=== PATIENT | male | born 1945 | race Caucasian/White ===

== ENCOUNTER 2016-02-27 22:32 | Inpatient (IN) | payer MEDICARE, BC ==
[~2016-02-27] VITALS: Ht 175.3 cm; Wt 90.7 kg
[~2016-02-27 22:32] MED LIST: ATEN50TA PO; Chlordiazepoxide Hcl PO; Folic Acid PO; MAGN400T26 PO; THIA100T13 PO
[2016-02-27 23:03] LABS: BASOPHILS % (AUTO) 0.6 % (0.0-2.0); DIFF TOTAL % 100 %; EOSINOPHILS # (AUTO) 0.2 /CMM (0.0-0.7); EOSINOPHILS % (AUTO) 2.3 % (0.0-6.0); HEMATOCRIT 47 % (39-51); LYMPHOCYTES # (AUTO) 1.8 /CMM (0.8-4.8); LYMPHOCYTES % (AUTO) 24.6 % (20.0-44.0); MEAN CORPUSCULAR HEMOGLOBIN 32 PG (26.0-33.0); MEAN CORPUSCULAR HGB CONC 34 g/dl (31.0-36.0); MEAN CORPUSCULAR VOLUME 95 fL (80-96); MONOCYTES # (AUTO) 0.6 /CMM (0.1-1.30); MONOCYTES % (AUTO) 7.5 % (2.0-12.0); NEUTROPHILS # (AUTO) 4.8 /CMM (1.8-8.9); PLATELET COUNT (AUTO) 204 /CMM (150-450); RED BLOOD CELL COUNT(AUTO) 4.96 MIL/uL (4.5-6.0); WHITE BLOOD COUNT (AUTO) 7.4 K/uL (4.3-11.0)
[2016-02-27 23:09] LABS: CALCIUM, SERUM 8.4 mg/dL (8.5-10.1); CREATININE 0.8 mg/dL (0.6-1.3); POTASSIUM 3.7 mmol/L (3.5-5.1)
[2016-02-27 23:15] LABS: ALBUMIN 4.1 g/dL (3.4-5.0); BILIRUBIN,DIRECT 0.2 mg/dL (0.0-0.2); BILIRUBIN,TOTAL 0.8 mg/dL (0.2-1.0); INDIRECT BILIRUBIN 0.6 mg/dL (0.0-1.1); SALICYLATE 4.2 mg/dL (2.8-20.0); TOTAL PROTEIN, SERUM 7.2 g/dL (6.4-8.2)
[2016-02-28 00:15] VITALS: BP 139/78
[2016-02-28] MEDS ORDERED: MAG HYDROX/AL HYDROX/SIMETH 30 ML UDC PO PRN (00:30)
[2016-02-28] MEDS ORDERED: ACETAMINOPHEN 325 MG TABLET PO PRN (00:30)
[2016-02-28] MEDS ORDERED: clonazePAM 0.5 MG TABLET PO PRN (00:30)
[2016-02-28] MEDS ORDERED: TEMAZEPAM 7.5 MG CAPSULE ONE (02:04)
[2016-02-28] MEDS ORDERED: ACETAMINOPHEN 325 MG TABLET ONE (02:05)
[2016-02-28] MEDS: TEMAZEPAM 7.5 MG CAPSULE PO PRN ×2 (02:10→23:15)
[2016-02-28 07:29] LABS: CHOLESTEROL 208 mg/dL (<200); HDL CHOLESTEROL 87 mg/dL (40-60); LDL 99 mg/dL (0-99); TRIGLYCERIDES 104 mg/dL (30-150)
[2016-02-28 08:00] VITALS: BP 158/83
[2016-02-28] MEDS: THIAMINE HCL 100 MG TABLET PO SCH (09:18)
[2016-02-28] MEDS: MAGNESIUM OXIDE 400 MG TABLET PO SCH (09:18)
[2016-02-28] MEDS: FOLIC ACID 1 MG TABLET PO SCH (09:19)
[2016-02-28] MEDS: ATENOLOL 50 MG TABLET PO SCH (09:19)
[2016-02-28] MEDS: MAGNESIUM HYDROXIDE 30 ML UDC PO PRN (09:22)
[2016-02-28 16:00] VITALS: BP 118/64
[2016-02-28 20:29] VITALS: BP 134/84
[2016-02-29 08:00] VITALS: BP 139/87
[2016-02-29 08:16] LABS: BASOPHILS % (AUTO) 0.3 % (0.0-2.0); DIFF TOTAL % 100 %; EOSINOPHILS # (AUTO) 0.2 /CMM (0.0-0.7); HEMATOCRIT 46 % (39-51); HEMOGLOBIN 15.6 g/dL (13.5-17.5); LYMPHOCYTES # (AUTO) 1.5 /CMM (0.8-4.8); LYMPHOCYTES % (AUTO) 24.1 % (20.0-44.0); MEAN CORPUSCULAR HEMOGLOBIN 32 PG (26.0-33.0); MEAN CORPUSCULAR HGB CONC 34 g/dl (31.0-36.0); MEAN CORPUSCULAR VOLUME 94 fL (80-96); MONOCYTES # (AUTO) 0.4 /CMM (0.1-1.30); MONOCYTES % (AUTO) 6.5 % (2.0-12.0); NEUTROPHILS # (AUTO) 4.1 /CMM (1.8-8.9); NEUTROPHILS % (AUTO) 66.1 % (43.0-81.0); PLATELET COUNT (AUTO) 161 /CMM (150-450); RED BLOOD CELL COUNT(AUTO) 4.83 MIL/uL (4.5-6.0); WHITE BLOOD COUNT (AUTO) 6.2 K/uL (4.3-11.0)
[2016-02-29] MEDS: MAGNESIUM OXIDE 400 MG TABLET PO SCH (08:23)
[2016-02-29] MEDS: FOLIC ACID 1 MG TABLET PO SCH (08:23)
[2016-02-29] MEDS: THIAMINE HCL 100 MG TABLET PO SCH (08:23)
[2016-02-29] MEDS: ATENOLOL 50 MG TABLET PO SCH (08:23)
[2016-02-29 08:41] LABS: ALBUMIN 3.9 g/dL (3.4-5.0); BILIRUBIN,TOTAL 0.9 mg/dL (0.2-1.0); CALCIUM, SERUM 8.7 mg/dL (8.5-10.1); CREATININE 0.7 mg/dL (0.6-1.3); POTASSIUM 3.4 mmol/L (3.5-5.1); TOTAL PROTEIN, SERUM 6.9 g/dL (6.4-8.2)
[2016-02-29] MEDS: ESCITALOPRAM OXALATE (10 MG) 10 MG TABLET PO SCH (13:57)
[2016-02-29 16:00] VITALS: BP 142/87
[2016-02-29 20:00] VITALS: BP 140/76
[2016-03-01 08:00] VITALS: BP 112/74
[2016-03-01] MEDS: ESCITALOPRAM OXALATE (10 MG) 10 MG TABLET PO SCH (08:32)
[2016-03-01] MEDS: ATENOLOL 50 MG TABLET PO SCH (08:32)
[2016-03-01] MEDS: THIAMINE HCL 100 MG TABLET PO SCH (08:32)
[2016-03-01] MEDS: FOLIC ACID 1 MG TABLET PO SCH (08:32)
[2016-03-01] MEDS: MAGNESIUM OXIDE 400 MG TABLET PO SCH (08:33)
[2016-03-01] MEDS: MAGNESIUM HYDROXIDE 30 ML UDC PO PRN (09:17)
[2016-03-01] MEDS ORDERED: POTASSIUM CHLORIDE 20 MEQ TAB.PRT.SR PO ONE (11:00)
[2016-03-01 16:08] VITALS: BP 111/68
[2016-03-01 19:54] VITALS: BP 112/74
[2016-03-01] MEDS: TEMAZEPAM 7.5 MG CAPSULE PO PRN (21:18)
[2016-03-02 08:00] VITALS: BP 114/77
[2016-03-02] MEDS: FOLIC ACID 1 MG TABLET PO SCH (08:15)
[2016-03-02] MEDS: THIAMINE HCL 100 MG TABLET PO SCH (08:16)
[2016-03-02] MEDS: MAGNESIUM OXIDE 400 MG TABLET PO SCH (08:17)
[2016-03-02 08:18] VITALS: BP 114/77
[2016-03-02] MEDS: ATENOLOL 50 MG TABLET PO SCH (08:18)
[2016-03-02] MEDS ORDERED: ESCITALOPRAM OXALATE (10 MG) 10 MG TABLET PO SCH (09:00)
== END 2016-03-02 12:30 | disposition home health service (06) | DRG 881 ==
LOC: ER 22:33 → GPS 02-28
PROVIDERS: ADMIT Psychiatry & Neurology Psychiatry; ATTEND Family Medicine
DX: F32.9 Major depressive disorder, single episode, unspecified (principal); T51.92XA Toxic effect of unspecified alcohol, intentional self-harm, initial encounter; F10.229 Alcohol dependence with intoxication, unspecified; F17.210 Nicotine dependence, cigarettes, uncomplicated; I10 Essential (primary) hypertension; E87.6 Hypokalemia; E78.5 Hyperlipidemia, unspecified; E66.9 Obesity, unspecified; Z68.29 Body mass index [BMI] 29.0-29.9, adult; Y90.6 Blood alcohol level of 120-199 mg/100 ml; Y92.009 Unspecified place in unspecified non-institutional (private) residence as the place of occurrence of the external cause
CPT/HCPCS: 36415; 80048-TC; 80053-TC; 80061-TC; 80076-TC; 85025-TC; 87081-TC; A4606; G6038-TC; G6039-TC; G6040-TC; Z7610

== ENCOUNTER 2016-06-03 21:37 | Emergency (ER) | payer MEDICARE, BC ==
[~2016-06-03] VITALS: Ht 175.3 cm; Wt 86.2 kg
--- NOTE | 2016-06-03 22:00 | NUR ---
PT BIB RA C/O ETOH INTOX. AMBULATORY WITH STEADY GAIT. A/OX4. SMELLS OF ETOH. SPEECH CLEAR. PT APPEARS WITHDRAWN AND DEPRESSED, DOES NOT MAKE EYE CONTACT. MIRIAN SI/HI. LIVES ALONE WITH HIS DOG. PT STATES "I KNOW THIS SOUNDS CLICHE BUT I JUST WANT TO SLEEP". DENIES PHYSICAL COMPLAINTS "OTHER THAN BEING DRUNK".
--- NOTE | 2016-06-03 22:11 | NUR ---
PT AMBULATED WITH STEADY GAIT. A/OX4. PT WENT OUTSIDE TO SMOKE.
[2016-06-03] MEDS ORDERED: LORAZEPAM INJ 2 MG/ML VIAL ONE (22:48)
[2016-06-03] MEDS ORDERED: IV SET PRIMARY PUMP SET 1 EA INFUS.SET MC ONE (22:48)
[2016-06-03] MEDS ORDERED: IV NS 0.9% 1,000 ML ONE (22:48)
[2016-06-03] MEDS: IV NS 0.9% 1,000 ML BAG IV ONE (23:06)
[2016-06-03] MEDS: LORAZEPAM INJ 2 MG/ML VIAL IV ONE (23:06)
--- NOTE | 2016-06-03 23:41 | NUR ---
RESTING QUIETLY, NAD NOTED. ALL NEEDS ATTENDED TO. ENDORSED TO PAULO RN FOR CONTINUITY OF CARE.
--- NOTE | 2016-06-04 02:57 | NUR ---
pt ambulatory w/ steady gait, resp even & unlabored, denies any pain, VSS w/ no acute distress noted. IV removed. Catheter intact and site benign. Pressure and 4x4 applied to site. No bleeding noted.Patient discharged to home in stable condition. Written and verbal after care instructions given. Patient verbalizes understanding of instruction.
[2016-06-04 02:59] VITALS: BP 131/94
== END 2016-06-04 02:59 | disposition home or self-care (01) ==
LOC: ER 21:39
DX: F10.20 Alcohol dependence, uncomplicated (principal); I10 Essential (primary) hypertension
CPT/HCPCS: 96361; 96374; 99284; A4606; J2060; J7030; Z7610

== ENCOUNTER 2016-06-17 16:28 | Emergency (ER) | payer MEDICARE, BC ==
[~2016-06-17] VITALS: Ht 175.3 cm; Wt 83.9 kg
--- NOTE | 2016-06-17 16:30 | NUR ---
pt bibra from home to er bed 12. here for etoh. pt states drank a 5th of vodka since yesterday. denies si/hi. placed on monitor.nad noted. awaiting md hobbs.
--- NOTE | 2016-06-17 17:27 | NUR ---
keaton rail car mechanic at bedside for eval.
[2016-06-17] MEDS ORDERED: IV NS 0.9% 1,000 ML ONE (18:14)
[2016-06-17] MEDS ORDERED: IV SET PRIMARY 1 EA INFUS.SET MC ONE (18:14)
[2016-06-17 18:26] LABS: BASOPHILS # (AUTO) 0.1 /CMM (0.0-0.2); BASOPHILS % (AUTO) 0.7 % (0.0-2.0); EOSINOPHILS # (AUTO) 0.1 /CMM (0.0-0.7); EOSINOPHILS % (AUTO) 1.2 % (0.0-6.0); HEMATOCRIT 47 % (39-51); HEMOGLOBIN 15.9 g/dL (13.5-17.5); LYMPHOCYTES # (AUTO) 1.4 /CMM (0.8-4.8); LYMPHOCYTES % (AUTO) 18.6 % (20.0-44.0); MEAN CORPUSCULAR HEMOGLOBIN 31 PG (26.0-33.0); MEAN CORPUSCULAR HGB CONC 34 g/dl (31.0-36.0); MEAN CORPUSCULAR VOLUME 93 fL (80-96); MONOCYTES # (AUTO) 0.4 /CMM (0.1-1.30); MONOCYTES % (AUTO) 4.8 % (2.0-12.0); NEUTROPHILS # (AUTO) 5.7 /CMM (1.8-8.9); NEUTROPHILS % (AUTO) 74.7 % (43.0-81.0); PLATELET COUNT (AUTO) 181 /CMM (150-450); RDW COEFFICIENT OF VARIATION 13.4 (11.5-15.0); RED BLOOD CELL COUNT(AUTO) 5.07 MIL/uL (4.5-6.0); WHITE BLOOD COUNT (AUTO) 7.7 K/uL (4.3-11.0)
[2016-06-17] MEDS ORDERED: IV NS 0.9% 1,000 ML BAG IV ONE (18:30)
--- NOTE | 2016-06-17 18:45 | NUR ---
still unable to provide urine sample at this time. provided w/ urinal.
[2016-06-17 18:46] LABS: ALBUMIN 3.7 g/dL (3.4-5.0); BILIRUBIN,DIRECT 0.7 mg/dL (0.0-0.2); BILIRUBIN,TOTAL 1.7 mg/dL (0.2-1.0); CALCIUM, SERUM 8.3 mg/dL (8.5-10.1); CREATININE 0.9 mg/dL (0.6-1.3); POTASSIUM 3.5 mmol/L (3.5-5.1); TOTAL PROTEIN, SERUM 6.4 g/dL (6.4-8.2)
--- NOTE | 2016-06-17 18:55 | NUR ---
pt blood sugar is low. provided w/ snack.
--- NOTE | 2016-06-17 19:39 | NUR ---
I CALLED PATIENT'S SON TESSA NOTIFYING HIM THAT PATIENT IS READY TO BE DISCHARGED, HE IS OUT OF TOWN AND IS UNABLE TO PICK HIM UP HOWEVER, HE WILL CALL AN UBER TO PROVIDE THE PATIENT A RIDE BACK HOME.
[2016-06-17 19:52] VITALS: BP 138/84
--- NOTE | 2016-06-17 19:52 | NUR ---
Patient discharged to home in stable condition. Written and verbal after care instructions given. Patient verbalizes understanding of instruction.IV removed. Catheter intact and site benign. Pressure and 4x4 applied to site. No bleeding noted.
[2016-06-18] MEDS ORDERED: FOLI1TAB16 PO (11:33)
[2016-06-18] MEDS ORDERED: MAGN400T26 PO (11:33)
[2016-06-18] MEDS ORDERED: ESCI10TA PO (11:33)
[2016-06-18] MEDS ORDERED: THIA100T74 PO (11:33)
== END 2016-06-17 19:55 | disposition home or self-care (01) ==
LOC: ER 16:30
DX: F10.129 Alcohol abuse with intoxication, unspecified (principal); I10 Essential (primary) hypertension; F32.9 Major depressive disorder, single episode, unspecified
CPT/HCPCS: 36415; 80048; 80076; 85025; 93005; 99285; A4606; J7030; 81000-TC; Z7610

== ENCOUNTER 2016-06-18 10:35 | Inpatient (IN) | payer MEDICARE, BC ==
[~2016-06-18] VITALS: Ht 175.3 cm; Wt 87.5 kg
--- NOTE | 2016-06-18 10:40 | NUR ---
PT CAME IN FOR N/V,A BD PAIN AND DARK STOOL SINCE LAST NIGHT. REPORTS ALCOHOL WITHDRAWAL. PT AAOX3. SEEN BY MD. RENE. SAFETY AND COMFORT MEASURES PROVIDED. WILL MONITOR.
[2016-06-18 11:25] LABS: BASOPHILS # (AUTO) 0.2 /CMM (0.0-0.2); BASOPHILS % (AUTO) 1.5 % (0.0-2.0); EOSINOPHILS # (AUTO) 0.1 /CMM (0.0-0.7); EOSINOPHILS % (AUTO) 0.9 % (0.0-6.0); HEMATOCRIT 44 % (39-51); HEMOGLOBIN 14.9 g/dL (13.5-17.5); LYMPHOCYTES # (AUTO) 0.8 /CMM (0.8-4.8); LYMPHOCYTES % (AUTO) 7.7 % (20.0-44.0); MEAN CORPUSCULAR HEMOGLOBIN 31 PG (26.0-33.0); MEAN CORPUSCULAR HGB CONC 34 g/dl (31.0-36.0); MEAN CORPUSCULAR VOLUME 92 fL (80-96); MONOCYTES # (AUTO) 0.3 /CMM (0.1-1.30); MONOCYTES % (AUTO) 3.3 % (2.0-12.0); NEUTROPHILS # (AUTO) 8.8 /CMM (1.8-8.9); NEUTROPHILS % (AUTO) 86.6 % (43.0-81.0); PLATELET COUNT (AUTO) 162 /CMM (150-450); RDW COEFFICIENT OF VARIATION 13.3 (11.5-15.0); RED BLOOD CELL COUNT(AUTO) 4.81 MIL/uL (4.5-6.0); WHITE BLOOD COUNT (AUTO) 10.2 K/uL (4.3-11.0)
[2016-06-18] MEDS ORDERED: PANTOPRAZOLE 40 MG VIAL ONE (11:27)
[2016-06-18] MEDS ORDERED: IV NS 0.9% 1,000 ML ONE (11:27)
[2016-06-18] MEDS ORDERED: IV SET PRIMARY PUMP SET 1 EA INFUS.SET MC ONE ×2 (11:27→14:17)
[2016-06-18] MEDS ORDERED: ONDANSETRON HCL/PF 4 MG/2 ML VIAL ONE (11:27)
[2016-06-18] MEDS ORDERED: IV NS 0.9% 1,000 ML BAG IV ONE (11:30)
[2016-06-18] MEDS ORDERED: PANTOPRAZOLE 40 MG VIAL IV ONE (11:30)
[2016-06-18] MEDS ORDERED: ONDANSETRON HCL/PF 4 MG/2 ML VIAL IVP ONE (11:30)
[2016-06-18] MEDS ORDERED: MAGN400T26 PO (11:33)
[2016-06-18] MEDS ORDERED: THIA100T74 PO (11:33)
[2016-06-18] MEDS ORDERED: FOLI1TAB16 PO (11:33)
[2016-06-18] MEDS ORDERED: ESCI10TA PO (11:33)
--- NOTE | 2016-06-18 11:35 | NUR ---
[facility] PAGED DR. BESSIE MARLEY MANAGER CUSTOMS
[2016-06-18 11:38] LABS: CALCIUM, SERUM 9.1 mg/dL (8.5-10.1); CREATININE 0.9 mg/dL (0.6-1.3); POTASSIUM 3.5 mmol/L (3.5-5.1)
[2016-06-18 11:40] LABS: INR 0.98 (0.87-1.13); PROTHROMBIN TIME 10.2 SECS (9.5-12.7)
--- NOTE | 2016-06-18 11:40 | NUR ---
IV ACCESS STARTED. PT MEDICATED ORDERED.
[2016-06-18 11:43] LABS: ALBUMIN 3.7 g/dL (3.4-5.0); BILIRUBIN,DIRECT 0.7 mg/dL (0.0-0.2); BILIRUBIN,TOTAL 2.2 mg/dL (0.2-1.0); TOTAL PROTEIN, SERUM 6.2 g/dL (6.4-8.2)
--- NOTE | 2016-06-18 11:44 | NUR ---
CALLED NURSING SUP. FOR TELE BED
[2016-06-18 11:45] LABS: TROPONIN I 0.071 ng/mL (0.00-0.056)
[2016-06-18 12:00] VITALS: BP 131/55
--- NOTE | 2016-06-18 12:38 | NUR ---
REPORT GIVEN TO KAI MCCLELLAN FOR TELE ROOM 313-2
[2016-06-18] MEDS ORDERED: ZOLPIDEM TARTRATE 5 MG TABLET PO PRN (13:00)
[2016-06-18] MEDS ORDERED: ACETAMINOPHEN 325 MG TABLET PO PRN (13:00)
[2016-06-18] MEDS ORDERED: LORAZEPAM INJ 2 MG/ML VIAL IV PRN (13:00)
[2016-06-18] MEDS ORDERED: ONDANSETRON HCL/PF 4 MG/2 ML VIAL IVP PRN (13:00)
[2016-06-18] MEDS ORDERED: Thiamine 100 MG in IV D5W 50 ML IV STA (13:11)
--- NOTE | 2016-06-18 13:30 | NUR ---
MS RN NOTES PATIENT IN BED RESTING NO SOB OR ACUTE DISTRESS NOTED. PATIENT RECEIVED WITH KIM FROM ER. ORIENTED TO ROOM AND FLOOR. BED IN LOW LOCKED POSITION, CALL LIGHT WITHIN REACH. WILL CONTINUE TO MONITOR CLOSELY.
[2016-06-18] MEDS ORDERED: SECONDARY IV SET 1 EA INFUS.SET MC ONE ×2 (14:17→21:54)
[2016-06-18] MEDS: IV NS 0.9% 1,000 ML IV PRN (14:28)
[2016-06-18 16:00] VITALS: BP 149/84
[2016-06-18] MEDS: ESCITALOPRAM OXALATE (10 MG) 10 MG TABLET PO SCH (18:09)
--- NOTE | 2016-06-18 19:20 | NUR ---
MS RN OPENING NOTES: RECEIVED PATIENT LAYING IN BED. PT ON ROOM AIR. PT COMPLAINED OF NAUSEA BUT REPORTS TO BE DRY HEAVING. NO VOMIT PRESENT. CALL LIGHT WITHIN PT'S REACH. BED KEPT IN LOCKED, LOWEST POSITION, AND SIDE RAILS X2 UP. KEPT CLEAN, DRY, AND COMFORTABLE. NO SIGNS OR SYMPTOMS OF DISTRESS NOTED. PT AMBULATORY WITH SLIGHT WEAKNESS. IV ON L FOREARM #18G AND IS PATENT AND INTACT. WILL CONTINUE TO MONITOR PT.
--- NOTE | 2016-06-18 19:54 | NUR ---
MS RN NOTES PATIENT IN BED RESTING NO SOB OR ACUTE DISTRESS NOTED. ALL DUE MEDICATIONS GIVEN. ALL NEEDS MET. ENDORSED TO PM SHIFT.
[2016-06-18 20:00] VITALS: BP 154/82
[2016-06-18 20:32] VITALS: BP 154/82
[2016-06-18] MEDS: Magnesium 1GM/D5W 100ML PREMIX 100 ML IV SCH ×2 (22:03→23:34)
[2016-06-18] MEDS: CARVEDILOL 12.5 MG TABLET PO SCH (22:04)
--- NOTE | 2016-06-18 22:12 | NUR ---
MS RN NOTES: PATIENT COMPLAINED OF NAUSEA. PT RECEIVED ZOFRAN 4MG IVP. WILL CONTINUE TO MONITOR PT.
[2016-06-19] MEDS: IV NS 0.9% 1,000 ML IV PRN (05:44)
[2016-06-19 06:50] LABS: BASOPHILS % (AUTO) 0.3 % (0.0-2.0); EOSINOPHILS # (AUTO) 0.1 /CMM (0.0-0.7); EOSINOPHILS % (AUTO) 2.1 % (0.0-6.0); HEMATOCRIT 41 % (39-51); HEMOGLOBIN 13.6 g/dL (13.5-17.5); LYMPHOCYTES # (AUTO) 1.3 /CMM (0.8-4.8); MEAN CORPUSCULAR HEMOGLOBIN 32 PG (26.0-33.0); MEAN CORPUSCULAR HGB CONC 34 g/dl (31.0-36.0); MEAN CORPUSCULAR VOLUME 95 fL (80-96); MONOCYTES # (AUTO) 0.2 /CMM (0.1-1.30); MONOCYTES % (AUTO) 3.5 % (2.0-12.0); NEUTROPHILS # (AUTO) 5.2 /CMM (1.8-8.9); NEUTROPHILS % (AUTO) 75.1 % (43.0-81.0); PLATELET COUNT (AUTO) 117 /CMM (150-450); RDW COEFFICIENT OF VARIATION 14.2 (11.5-15.0); WHITE BLOOD COUNT (AUTO) 6.9 K/uL (4.3-11.0)
--- NOTE | 2016-06-19 07:02 | NUR ---
MS RN CLOSING NOTES: PT LAYING IN BED ASLEEP. NO SIGNS OR SYMPTOMS OF DISTRESS OR SOB NOTED. CALL LIGHT WITHIN PT'S REACH AND BED KEPT IN LOCKED, LOWEST POSITION, AND SIDE RAILS X2 UP. PT KEPT CLEAN, DRY, AND COMFORTABLE. PT IS AMBULATORY WITH SLIGHT WEAKNESS. PT'S IV IS ON L FOREARM #18G AND IS PATENT AND INTACT. WILL ENDORSE TO AM NURSE FOR CONTINUITY OF CARE
[2016-06-19 07:19] LABS: ALBUMIN 3.2 g/dL (3.4-5.0); BILIRUBIN,TOTAL 1.5 mg/dL (0.2-1.0); MAGNESIUM 1.7 mg/dL (1.8-2.4); PHOSPHORUS 2.4 mg/dL (2.5-4.9); POTASSIUM 3.2 mmol/L (3.5-5.1); TOTAL PROTEIN, SERUM 5.4 g/dL (6.4-8.2)
[2016-06-19 07:26] LABS: THYROID STIMULATING HORMONE 0.769 uIU/mL (0.358-3.74)
[2016-06-19 08:00] VITALS: BP 125/77
[2016-06-19] MEDS ORDERED: SECONDARY IV SET 1 EA INFUS.SET MC ONE (08:58)
[2016-06-19] MEDS ORDERED: ATENOLOL 50 MG TABLET PO SCH (09:00)
[2016-06-19] MEDS: POTASSIUM CHLORIDE 20 MEQ TAB.PRT.SR PO SCH ×3 (09:07→12:06)
[2016-06-19] MEDS: PANTOPRAZOLE 40 MG TABLET.DR PO SCH (09:07)
[2016-06-19] MEDS: Magnesium 1GM/D5W 100ML PREMIX 100 ML IV SCH ×2 (09:08→09:31)
[2016-06-19] MEDS: ESCITALOPRAM OXALATE (10 MG) 10 MG TABLET PO SCH (09:18)
[2016-06-19] MEDS: MAGNESIUM OXIDE 400 MG TABLET PO SCH (09:19)
[2016-06-19] MEDS: CARVEDILOL 12.5 MG TABLET PO SCH ×2 (09:20→23:40)
[2016-06-19] MEDS: THIAMINE HCL 100 MG TABLET PO SCH (09:20)
[2016-06-19] MEDS: FOLIC ACID 1 MG TABLET PO SCH (09:31)
--- NOTE | 2016-06-19 10:25 | NUR ---
WOUND CARE CONSULT: PT PRESENTS INDEPENDENT WITH BED MOBILITY AND STATES IS CONTINENT. PT STATES THAT HE GETS UP TO BATHROOM WITH ASSISTANCE AND DENIES NEED FOR SKIN ASSESSMENT. WILL SEE PRN.
[2016-06-19] MEDS ORDERED: IV NS 0.9% 1,000 ML ONE (15:17)
[2016-06-19 16:00] VITALS: BP 132/68
[2016-06-19] MEDS ORDERED: K PHOS NEUTRAL 250 MG TABLET PO ONE (16:00)
--- NOTE | 2016-06-19 19:10 | NUR ---
MS RN NOTES RECEIVED PT IN BED, RESTING COMFORTABLY AT THIS TIME, AROUSES EASILY. A/O X 3, VERBALLY RESPONSIVE , ABLE TO MAKE NEEDS KNOWN. STABLE AT THIS TIME, NO ACUTE DISTRESS, NO SOB NOTED. RESPIRATION IS EVEN ANDS UNLABORED. IV SITE ON LFA INTACT AND PATENT, NO S/S OF INFILTRATION NOTED. DENIES ANY PAIN OR DISCOMFORT AT THIS TIME. ALL NEEDS ATTENDED AND MET. KEPT COMFORTABLE. SAFETY PRECAUTIONS OBSERVED. CALL LIGHT WITHIN REACH. WILL CONT TO MONITOR.
[2016-06-19 20:26] VITALS: BP 120/66
[2016-06-19 22:00] VITALS: BP 120/66
--- NOTE | 2016-06-19 22:15 | NUR ---
PT REQUESTED TO GO DOWNSTAIRS, OUTSIDE TO INHALE SOME FRESH AIR, DOLORES , CHARGE NURSE MADE AWARE . PT ACCOMPANIED BY JOON ANDRADE .
--- NOTE | 2016-06-19 22:25 | NUR ---
PT CAME BACK FROM OUTSIDE WITH JOON ANDRADE. PT IN STABLE CONDITION, NO DISTRESS NO SOB NOTED. WILL CONT TO MONITOR. CALL LIGHT WITHIN REACH .
[2016-06-20 06:17] LABS: BASOPHILS % (AUTO) 0.1 % (0.0-2.0); EOSINOPHILS # (AUTO) 0.1 /CMM (0.0-0.7); HEMATOCRIT 42 % (39-51); LYMPHOCYTES # (AUTO) 1.2 /CMM (0.8-4.8); LYMPHOCYTES % (AUTO) 23.4 % (20.0-44.0); MEAN CORPUSCULAR HEMOGLOBIN 32 PG (26.0-33.0); MEAN CORPUSCULAR HGB CONC 34 g/dl (31.0-36.0); MEAN CORPUSCULAR VOLUME 94 fL (80-96); MONOCYTES # (AUTO) 0.2 /CMM (0.1-1.30); MONOCYTES % (AUTO) 3.3 % (2.0-12.0); NEUTROPHILS # (AUTO) 3.8 /CMM (1.8-8.9); NEUTROPHILS % (AUTO) 71.2 % (43.0-81.0); PLATELET COUNT (AUTO) 104 /CMM (150-450); RDW COEFFICIENT OF VARIATION 14.1 (11.5-15.0); RED BLOOD CELL COUNT(AUTO) 4.41 MIL/uL (4.5-6.0); WHITE BLOOD COUNT (AUTO) 5.3 K/uL (4.3-11.0)
[2016-06-20 06:39] LABS: CALCIUM, SERUM 8.5 mg/dL (8.5-10.1); CREATININE 0.8 mg/dL (0.6-1.3); MAGNESIUM 1.5 mg/dL (1.8-2.4); PHOSPHORUS 2.1 mg/dL (2.5-4.9)
--- NOTE | 2016-06-20 06:45 | NUR ---
MS RN NOTES PT IN BED, RESTING COMFORTABLY AT THIS TIME, A/O X 3, VERBALLY RESPONSIVE , ABLE TO MAKE NEEDS KNOWN. STABLE AT THIS TIME, NO ACUTE DISTRESS, NO SOB NOTED. RESPIRATION IS EVEN AND UNLABORED. IV SITE ON LFA INTACT AND PATENT, NO S/S OF INFILTRATION NOTED. DENIES ANY PAIN OR DISCOMFORT AT THIS TIME. ALL NEEDS ATTENDED AND MET. KEPT COMFORTABLE. SAFETY PRECAUTIONS OBSERVED. CALL LIGHT WITHIN REACH. WILL ENDORSE TO NEXT SHIFT FOR GABE.
[2016-06-20 06:55] LABS: POTASSIUM 2.7 mmol/L (3.5-5.1)
--- NOTE | 2016-06-20 07:10 | NUR ---
MS RN OPENING NOTES RECEIVED PT. FROM NIGHTSHIFT NURSE IN STABLE CONDITION. A/0 X3. PT. AWAKE AND LYING IN BED. BED IN LOW LOCKED POSITION, SIDE RAILS UP X2, CALL LIGHT WITHIN REACH. NO SOB OR SIGNS OF DISTRESS NOTED. BREATHING EVEN AND UNLABORED. IV ON LEFT FOREARM, PATENT AND INTACT. NO REDNESS OR INFILTRATION NOTED. NO EXPRESSED SIGNS OF PAIN. WILL CONTINUE TO MONITOR.
--- NOTE | 2016-06-20 07:32 | NUR ---
PLACED A CALL TO [facility] TO RELAY POTASSIUM LEVEL : 2.7, SPOKE WITH BENNIE, PER BENNIE TO CALL BESSIE MARLEY, PT IS ASYMPTOMATIC AT THIS TIME, STABLE, DENIES ANY CHEST PAIN. ENDORSED TO DAYSMAFT VY CHAIREZ ACCORDINGLY.
[2016-06-20 08:00] VITALS: BP 121/75
[2016-06-20] MEDS: THIAMINE HCL 100 MG TABLET PO SCH (08:35)
[2016-06-20] MEDS: PANTOPRAZOLE 40 MG TABLET.DR PO SCH (08:36)
[2016-06-20] MEDS: MAGNESIUM OXIDE 400 MG TABLET PO SCH (08:36)
[2016-06-20] MEDS: FOLIC ACID 1 MG TABLET PO SCH (08:36)
[2016-06-20] MEDS: CARVEDILOL 12.5 MG TABLET PO SCH ×2 (08:36→21:17)
[2016-06-20] MEDS: Magnesium 1GM/D5W 100ML PREMIX 100 ML IV SCH ×4 (10:16→15:31)
[2016-06-20] MEDS: POTASSIUM CHLORIDE 20 MEQ TAB.PRT.SR PO SCH ×5 (10:16→15:31)
[2016-06-20] MEDS ORDERED: K PHOS NEUTRAL 250 MG TABLET PO ONE (13:00)
[2016-06-20 16:00] VITALS: BP 115/76
[2016-06-20] MEDS: ESCITALOPRAM OXALATE (10 MG) 10 MG TABLET PO SCH (18:37)
[2016-06-20 19:00] VITALS: BP 123/76
--- NOTE | 2016-06-20 19:05 | NUR ---
MS RN CLOSING NOTES PT. IN STABLE CONDITION. A/0 X3. PT. AWAKE AND LYING IN BED. BED IN LOW LOCKED POSITION, SIDE RAILS UP X2, CALL LIGHT WITHIN REACH. NO SOB OR SIGNS OF DISTRESS NOTED. BREATHING EVEN AND UNLABORED. IV ON LEFT FOREARM, PATENT AND INTACT. NO REDNESS OR INFILTRATION NOTED. NO EXPRESSED SIGNS OF PAIN. ALL SAFETY MEASURES CARRIED OUT THROUGHOUT SHIFT. ALL ORDERS CARRIED OUT AND PT. NEEDS ADDRESSED. WILL ENDORSE TO NIGHTSHIFT NURSE FOR GABE
[2016-06-20 20:00] VITALS: BP 123/76
--- NOTE | 2016-06-21 07:10 | NUR ---
MS RN OPENING NOTES RECEIVED PT. FROM NIGHTSHIFT NURSE IN STABLE CONDITION. A/0 X3. PT. AWAKE AND LYING IN BED. BED IN LOW LOCKED POSITION, SIDE RAILS UP X2, CALL LIGHT WITHIN REACH. NO SOB OR SIGNS OF DISTRESS NOTED. BREATHING EVEN AND UNLABORED. IV ON LEFT FOREARM 18G, PATENT AND INTACT. NO REDNESS OR INFILTRATION NOTED. NO EXPRESSED SIGNS OF PAIN. WILL CONTINUE TO MONITOR.
[2016-06-21 07:54] LABS: BASOPHILS % (AUTO) 0.3 % (0.0-2.0); EOSINOPHILS # (AUTO) 0.1 /CMM (0.0-0.7); EOSINOPHILS % (AUTO) 2.3 % (0.0-6.0); HEMATOCRIT 40 % (39-51); HEMOGLOBIN 13.2 g/dL (13.5-17.5); LYMPHOCYTES # (AUTO) 1.5 /CMM (0.8-4.8); LYMPHOCYTES % (AUTO) 30.5 % (20.0-44.0); MEAN CORPUSCULAR HEMOGLOBIN 31 PG (26.0-33.0); MEAN CORPUSCULAR HGB CONC 33 g/dl (31.0-36.0); MEAN CORPUSCULAR VOLUME 94 fL (80-96); MONOCYTES # (AUTO) 0.2 /CMM (0.1-1.30); MONOCYTES % (AUTO) 4.4 % (2.0-12.0); NEUTROPHILS # (AUTO) 3.1 /CMM (1.8-8.9); NEUTROPHILS % (AUTO) 62.5 % (43.0-81.0); PLATELET COUNT (AUTO) 100 /CMM (150-450); RDW COEFFICIENT OF VARIATION 14.5 (11.5-15.0); RED BLOOD CELL COUNT(AUTO) 4.25 MIL/uL (4.5-6.0)
[2016-06-21 08:00] VITALS: BP_SYST 143; BP_SYST 193; BP_DIAS 94
[2016-06-21 08:07] LABS: ALBUMIN 3.1 g/dL (3.4-5.0); BILIRUBIN,TOTAL 0.5 mg/dL (0.2-1.0); CALCIUM, SERUM 8.5 mg/dL (8.5-10.1); CREATININE 0.9 mg/dL (0.6-1.3); MAGNESIUM 1.6 mg/dL (1.8-2.4); PHOSPHORUS 2.6 mg/dL (2.5-4.9); POTASSIUM 3.7 mmol/L (3.5-5.1); TOTAL PROTEIN, SERUM 5.7 g/dL (6.4-8.2)
[2016-06-21] MEDS: PANTOPRAZOLE 40 MG TABLET.DR PO SCH (09:10)
[2016-06-21] MEDS: ASPIRIN 81 MG TAB.CHEW PO SCH (09:10)
[2016-06-21] MEDS: THIAMINE HCL 100 MG TABLET PO SCH (09:10)
[2016-06-21] MEDS: MAGNESIUM OXIDE 400 MG TABLET PO SCH (09:10)
[2016-06-21] MEDS: FOLIC ACID 1 MG TABLET PO SCH (09:11)
[2016-06-21] MEDS: CARVEDILOL 12.5 MG TABLET PO SCH ×2 (09:11→21:08)
[2016-06-21] MEDS ORDERED: Magnesium 1GM/D5W 100ML PREMIX 100 ML IV SCH (10:30)
[2016-06-21 16:00] VITALS: BP 129/70
[2016-06-21] MEDS: ESCITALOPRAM OXALATE (10 MG) 10 MG TABLET PO SCH (17:25)
--- NOTE | 2016-06-21 18:27 | NUR ---
MS RN CLOSING NOTES PT. IN STABLE CONDITION. A/0 X3. PT. AWAKE AND LYING IN BED. BED IN LOWEST LOCKED POSITION, SIDE RAILS UP X2, CALL LIGHT WITHIN REACH. NO SOB OR SIGNS OF DISTRESS NOTED. NO COMPLAINTS OF PAIN AT THIS TIME AND THROUGHOUT SHIFT. BREATHING EVEN AND UNLABORED. IV ON LEFT FOREARM, PATENT AND INTACT. NO REDNESS OR INFILTRATION NOTED. ALL SAFETY MEASURES CARRIED OUT THROUGHOUT SHIFT. ALL ORDERS CARRIED OUT AND PT. NEEDS ADDRESSED PROMPTLY. WILL ENDORSE TO NIGHTSHIFT NURSE FOR GABE
--- NOTE | 2016-06-21 19:15 | NUR ---
MS RN OPENING NOTES: RECEIVED PT IN BED AWAKE. PT IS A/O X3-4. PT IS ON ROOM AIR AND IS TOLERATING WELL. NO SIGNS OR SYMPTOMS OF DISTRESS NOTED. NOTIFIED PT THAT HE WILL BE NPO MIDNIGHT. CALL LIGHT WITHIN PT'S REACH. BED KEPT IN LOCKED, LOWEST POSITION, AND SIDE RAILS X2 UP. PT KEPT CLEAN, DRY, AND COMFORTABLE. IV ON L FOREARM #18 AND IS PATENT AND INTACT. WILL CONTINUE TO MONITOR PT.
[2016-06-21 20:29] VITALS: BP 151/74
[2016-06-22 00:16] VITALS: BP 115/74
--- NOTE | 2016-06-22 07:04 | NUR ---
MS RN CLOSING NOTES: ALL NEEDS WERE ATTENDED. PT IN BED LAYING DOWN. IV IS ON L FOREARM #18G AND IS PATENT AND INTACT. NO SIGNS OR SYMPTOMS OF DISTRESS OR SOB NOTED. CALL LIGHT IS WITHIN PT'S REACH AND BED IS KEPT IN LOCKED, LOWEST POSITION, AND SIDE RAILS X2 UP. PT IS KEPT CLEAN, DRY, AND COMFORTABLE. WILL ENDORSE TO AM NURSE FOR CONTINUITY OF CARE.
[2016-06-22 07:08] LABS: BASOPHILS % (AUTO) 0.4 % (0.0-2.0); EOSINOPHILS # (AUTO) 0.1 /CMM (0.0-0.7); EOSINOPHILS % (AUTO) 2.5 % (0.0-6.0); HEMATOCRIT 41 % (39-51); HEMOGLOBIN 13.6 g/dL (13.5-17.5); LYMPHOCYTES # (AUTO) 1.5 /CMM (0.8-4.8); LYMPHOCYTES % (AUTO) 33.5 % (20.0-44.0); MEAN CORPUSCULAR HEMOGLOBIN 32 PG (26.0-33.0); MEAN CORPUSCULAR HGB CONC 33 g/dl (31.0-36.0); MEAN CORPUSCULAR VOLUME 95 fL (80-96); MONOCYTES # (AUTO) 0.3 /CMM (0.1-1.30); MONOCYTES % (AUTO) 6.9 % (2.0-12.0); NEUTROPHILS # (AUTO) 2.5 /CMM (1.8-8.9); NEUTROPHILS % (AUTO) 56.7 % (43.0-81.0); PLATELET COUNT (AUTO) 98 /CMM (150-450); RDW COEFFICIENT OF VARIATION 14.6 (11.5-15.0); RED BLOOD CELL COUNT(AUTO) 4.28 MIL/uL (4.5-6.0); WHITE BLOOD COUNT (AUTO) 4.5 K/uL (4.3-11.0)
[2016-06-22 07:31] LABS: CALCIUM, SERUM 8.9 mg/dL (8.5-10.1); CREATININE 0.8 mg/dL (0.6-1.3); MAGNESIUM 1.6 mg/dL (1.8-2.4); PHOSPHORUS 4.4 mg/dL (2.5-4.9); POTASSIUM 3.3 mmol/L (3.5-5.1)
[2016-06-22 08:00] VITALS: BP 137/71
[2016-06-22 08:06] LABS: EOSINOPHILS % (MANUAL) 2 % (0-4); LYMPHOCYTES % (MANUAL) 33 % (16-48); MONOCYTES % (MANUAL) 4 % (0-11.0); NEUTROPHILS % (MANUAL) 61 (42-76); PLATELET ESTIMATE DECREASED
[2016-06-22] MEDS ORDERED: Magnesium 1GM/D5W 100ML PREMIX PIGGYBACK IV ONE (09:00)
[2016-06-22] MEDS ORDERED: REGADENOSON 0.4 MG/5 ML DISP.SYRIN IVP ONE (09:30)
[2016-06-22] MEDS ORDERED: POTASSIUM CHLORIDE 20 MEQ POWDER PACKET PO ONE (09:30)
--- NOTE | 2016-06-22 09:30 | NUR ---
m/s rim fire priming operator: notes pt back from [facility]. breakfast served. pt still schedule for phase 2 of stress test today. pt aware. instructed to call for assistance.
[2016-06-22] MEDS: THIAMINE HCL 100 MG TABLET PO SCH (09:49)
[2016-06-22] MEDS: FOLIC ACID 1 MG TABLET PO SCH (09:49)
[2016-06-22] MEDS: CARVEDILOL 12.5 MG TABLET PO SCH (09:49)
[2016-06-22] MEDS: MAGNESIUM OXIDE 400 MG TABLET PO SCH (09:49)
[2016-06-22] MEDS: ASPIRIN 81 MG TAB.CHEW PO SCH (09:49)
[2016-06-22] MEDS: PANTOPRAZOLE 40 MG TABLET.DR PO SCH (09:49)
[2016-06-22 10:00] VITALS: BP 137/71
[2016-06-22] MEDS ORDERED: Magnesium 1GM/D5W 100ML PREMIX 100 ML IV SCH (10:00)
--- NOTE | 2016-06-22 11:00 | NUR ---
m/s financial operations clerk: notes picked up for phase 2 via w/c at this time. will monitor.
--- NOTE | 2016-06-22 12:00 | NUR ---
M/S GEOTHERMAL FIELD TECHNICIAN: NOTES PT BACK FROM STRESS TEST. LUNCH SERVED. INSTRUCTED TO CALL FOR ASSISTANCE.
--- NOTE | 2016-06-22 14:00 | NUR ---
M/S SOLDER CREAM MAKER: NOTES BENNIE DISLA ([facility]) NOTIFIED AND MADE AWARE RE: STRESS TEST RESULT WITH NO NEW ORDER AT THIS TIME.
[2016-06-22 16:00] VITALS: BP 125/69
--- NOTE | 2016-06-22 16:30 | NUR ---
M/S FARO DEALER: MD VISIT SEEN BY BENNIE McqueenACNP) WITH ORDER TO D'C HOME. ORDER ACKNOWLEDGED. PT AWARE. EARLY DINNER ORDERED. INSTRUCTED TO CALL FOR ASSISTANCE. WILL MONITOR.
--- NOTE | 2016-06-22 17:15 | NUR ---
M/S MACHINE BUFFER: D'C INSTRUCTION DISCHARGED INSTRUCTIONS GIVEN TO PT AND VERBALIZED UNDERSTANDING. PT WILL STOP DRINKING STATED. PT HAVING DINNER AT THIS TIME AND WILL CALL ME ONCE DONE. INSTRUCTED TO CALL FOR ASSISTANCE. WILL MONITOR.
--- NOTE | 2016-06-22 17:40 | NUR ---
M/S GAME DESIGNER/CREATIVE DIRECTOR: NOTES H/L REMOVED WITH TIP INTACT WITH NO BLEEDING, NO REDNESS, AND NO SWELLING NOTED. JENNIFER CALLED AND PROVIDED PT WITH VOUCHER.
--- NOTE | 2016-06-22 18:00 | NUR ---
M/S LACROSSE COACH: DISCHARGED DISCHARGED HOME VIA TAXI WITH VOUCHER IN STABLE CONDITION WITH ALL D'C PAPERS AND BELONGINGS.
== END 2016-06-22 18:00 | disposition home or self-care (01) | DRG 391 ==
LOC: ER 10:36 → MED 12:49
PROVIDERS: ADMIT Nurse Practitioner Acute Care; ATTEND Nurse Practitioner Acute Care
DX: K29.00 Acute gastritis without bleeding (principal); I21.4 Non-ST elevation (NSTEMI) myocardial infarction; I42.6 Alcoholic cardiomyopathy; F10.29 Alcohol dependence with unspecified alcohol-induced disorder; Y90.9 Presence of alcohol in blood, level not specified; E78.5 Hyperlipidemia, unspecified; F32.9 Major depressive disorder, single episode, unspecified; I10 Essential (primary) hypertension; I70.0 Atherosclerosis of aorta; D69.6 Thrombocytopenia, unspecified; E83.39 Other disorders of phosphorus metabolism; E83.42 Hypomagnesemia; E87.6 Hypokalemia; F17.200 Nicotine dependence, unspecified, uncomplicated; E80.6 Other disorders of bilirubin metabolism; Z82.3 Family history of stroke; Z83.3 Family history of diabetes mellitus; K70.9 Alcoholic liver disease, unspecified; R74.0 Nonspecific elevation of levels of transaminase and lactic acid dehydrogenase [LDH]; Z71.6 Tobacco abuse counseling
CPT/HCPCS: 36415; 71010-TC; 80048-TC; 80053-TC; 80061-TC; 80076-TC; 83690-TC; 83735-TC; 84100-TC; 84443-TC; 84484-TC; 85025-TC; 85730-TC; 87081-TC; 93307-TC; 94799-TC; A4606; A9502; C9113; J2405; J2785; J3411; J3475; J7030; J7060; Z7610

== ENCOUNTER 2018-02-02 12:57 | Inpatient (IN) | payer MEDICARE, BC ==
[~2018-02-02] VITALS: Ht 175.3 cm; Wt 93.9 kg
[~2018-02-02 12:57] MED LIST changes: -Chlordiazepoxide Hcl PO; +ESCI10TA PO; +FOLI1TAB16 PO; -Folic Acid PO; -THIA100T13 PO; +THIA100T74 PO
--- NOTE | 2018-02-02 13:00 | NUR ---
PT BIB RA. COMP OF HAVING "CHEST PAIN" SINCE THIS MORNING. NO SOB NOTED. NO ACUTE DISTRESS AT THIS TIME. AWAITING MD ZEE.
[2018-02-02 13:17] LABS: BASOPHILS # (AUTO) 0.1 /CMM (0.0-0.2); EOSINOPHILS % (AUTO) 0.3 % (0.0-6.0); HEMATOCRIT 51 % (39-51); HEMOGLOBIN 17.5 g/dL (13.5-17.5); LYMPHOCYTES # (AUTO) 1.5 /CMM (0.8-4.8); LYMPHOCYTES % (AUTO) 13.2 % (20.0-44.0); MEAN CORPUSCULAR HGB CONC 35 g/dl (31.0-36.0); MEAN CORPUSCULAR VOLUME 101 fL (80-96); MONOCYTES # (AUTO) 0.4 /CMM (0.1-1.30); MONOCYTES % (AUTO) 3.5 % (2.0-12.0); NEUTROPHILS # (AUTO) 9.1 /CMM (1.8-8.9); PLATELET COUNT (AUTO) 163 /CMM (150-450); RED BLOOD CELL COUNT(AUTO) 5.05 MIL/uL (4.5-6.0); WHITE BLOOD COUNT (AUTO) 11.1 K/uL (4.3-11.0)
[2018-02-02] MEDS ORDERED: ASPIRIN 325 MG TABLET ONE (13:17)
[2018-02-02] MEDS ORDERED: ASPIRIN 81 MG TAB.CHEW ONE (13:19)
[2018-02-02] MEDS ORDERED: ASPIRIN 325 MG TABLET PO ONE (13:30)
[2018-02-02 13:43] LABS: CALCIUM, SERUM 8.2 mg/dL (8.5-10.1); CARBON DIOXIDE 18 mmol/L (21-32); CHLORIDE 98 mmol/L (98-107); CREATININE 0.9 mg/dL (0.6-1.3); GLUCOSE 55 mg/dL (74-106); POTASSIUM 4.1 mmol/L (3.5-5.1); SODIUM SERUM 140 mmol/L (136-145); UREA NITROGEN, BLOOD 17 mg/dL (7-18)
[2018-02-02 13:57] LABS: ALANINE AMINOTRANSFERASE 26 U/L (12-78); ALBUMIN 3.8 g/dL (3.4-5.0); ALKALINE PHOSPHATASE 66 U/L (46-116); ASPARTATE AMINOTRANSFERASE 37 U/L (15-37); B-TYPE NATRIURETIC PEPTIDE 123 PG/ML (0-125); BILIRUBIN,DIRECT 0.3 mg/dL (0.0-0.2); BILIRUBIN,TOTAL 0.9 mg/dL (0.2-1.0); TOTAL PROTEIN, SERUM 6.7 g/dL (6.4-8.2)
[2018-02-02] MEDS ORDERED: FAMOTIDINE/PF INJ 20 MG/2 ML VIAL IV ONE ×2 (13:58→14:00)
[2018-02-02] MEDS ORDERED: MAG HYDROX/AL HYDROX/SIMETH 30 ML UDC ONE (13:58)
[2018-02-02] MEDS ORDERED: ONDANSETRON HCL/PF 4 MG/2 ML VIAL ONE (13:58)
[2018-02-02] MEDS ORDERED: ONDANSETRON HCL/PF 4 MG/2 ML VIAL IVP ONE (14:00)
[2018-02-02] MEDS ORDERED: MAG HYDROX/AL HYDROX/SIMETH 30 ML UDC PO ONE (14:00)
[2018-02-02] MEDS ORDERED: DEXTROSE 50%-WATER 50 ML DISP.SYRIN IVP ONE (15:00)
[2018-02-02] MEDS ORDERED: FOLIC ACID 1 MG TABLET PO ONE (15:00)
[2018-02-02] MEDS ORDERED: THIAMINE HCL 100 MG TABLET PO ONE (15:00)
[2018-02-02] MEDS ORDERED: FOLIC ACID 1 MG TABLET ONE (15:09)
[2018-02-02] MEDS ORDERED: DEXTROSE 50%-WATER 50 ML DISP.SYRIN ONE (15:09)
[2018-02-02] MEDS ORDERED: THIAMINE HCL 100 MG TABLET ONE (15:09)
--- NOTE | 2018-02-02 16:21 | NUR ---
REPORT GIVEN TO PADILLA Cross PATIENT TO BE TRANSFERRED TO ROOM 325-1 TELE.
[2018-02-02] MEDS ORDERED: MAG HYDROX/AL HYDROX/SIMETH 30 ML UDC PO PRN (16:30)
[2018-02-02] MEDS ORDERED: ZOLPIDEM TARTRATE 5 MG TABLET PO PRN (16:30)
[2018-02-02] MEDS ORDERED: Z GUARD REMEDY 2 OZ OINT TP PRN (16:30)
[2018-02-02] MEDS ORDERED: ONDANSETRON HCL/PF 4 MG/2 ML VIAL IVP PRN (16:30)
[2018-02-02] MEDS ORDERED: MAGNESIUM HYDROXIDE 30 ML UDC PO PRN (16:30)
[2018-02-02] MEDS ORDERED: ACETAMINOPHEN 325 MG TABLET PO PRN (16:30)
[2018-02-02] MEDS ORDERED: HYDROCODONE/APAP 5/325MG 1 EACH TABLET PO PRN (16:30)
--- NOTE | 2018-02-02 16:49 | NUR ---
PATIENT TRANSFERRED TO ROOM 325-1 VIA ACLA PROTOCOL. VSS. PATIENT A/OX4, NAD. ENDORSED TO PADILLA Cross
[2018-02-02 17:00] VITALS: BP 145/96
--- NOTE | 2018-02-02 17:00 | NUR ---
INTERIOR DESIGN TEACHER AM NOTES ADMITTED PT FROM ER WITH DX OF ALCOHOL KETOACIDOSIS.PT C/O CHEST PAIN IN AM.ASA 162 AND NITRO 0.4 GIVEN BY AMBULANCE WITHOUT RELIEF.PT IS ALERT AND ORIENTED X3.FORGETFUL.WITH TELE ON-ST WITH PACS HR 107-122.DENIES ANY CHEST PAIN.C/O MOD HEADACHE.NORCO 10/325 MG PO GIVEN FOR PAIN MGT.WILL MONITOR.SKIN ASSESSMENT DONE.WITH LFA SCABS AND MULTIPLE WARTS IN WENDI ARMS.LT AC INTACT.CALL LIGHT PLACED WITHIN REACH.
[2018-02-02 18:00] VITALS: BP 145/96
--- NOTE | 2018-02-02 19:43 | NUR ---
DENTURE LABORATORY TECHNICIAN OPENING NOTE RECEIVED PT IN STABLE CONDITION A&O X3, WITH NO SIGNS OF SOB OR DISTRESS. ON TELE MONITOR : SINUS RHYTHM 100. PT. SAFETY PRECAUTIONS IN PLACE: BED IN LOCKED/LOWEST POSITION, UPPER BED RAILS UP X2, AND CALL LIGHT WITHIN REACH. ALL NEEDS ARE CURRENTLY MET. WILL CONT. TO MONITOR.
[2018-02-02 20:00] VITALS: BP 137/89
[2018-02-03] VITALS: BP 135/71
[2018-02-03 04:00] VITALS: BP 146/83
--- NOTE | 2018-02-03 06:23 | NUR ---
MERCHANDISE FLOW MANAGER CLOSING NOTE PT STABLE IN BED, RESTING. EASILY WAKES WHEN NAME IS CALLED. ALL VS STABLE WITH NO SIGNS OF SOB OR DISTRESS. NIDA Valera AC #20 INTACT AND PATENT. CURRENTLY SR 100 WITH PACs. SAFETY MEASURES IN PLACE, BED LOCKED IN THE LOWEST POSITION WITH UPPER BED RAILS UP X2, AND CALL LIGHT WITHIN REACH. WILL ENDORSE TO NEXT SHIFT FOR GABE.
[2018-02-03 06:44] LABS: BASOPHILS % (AUTO) 0.5 % (0.0-2.0); EOSINOPHILS % (AUTO) 1.3 % (0.0-6.0); HEMATOCRIT 45 % (39-51); HEMOGLOBIN 15.5 g/dL (13.5-17.5); LYMPHOCYTES # (AUTO) 1.4 /CMM (0.8-4.8); LYMPHOCYTES % (AUTO) 22.4 % (20.0-44.0); MEAN CORPUSCULAR HGB CONC 34 g/dl (31.0-36.0); MEAN CORPUSCULAR VOLUME 100 fL (80-96); MONOCYTES # (AUTO) 0.4 /CMM (0.1-1.30); MONOCYTES % (AUTO) 6.9 % (2.0-12.0); NEUTROPHILS # (AUTO) 4.2 /CMM (1.8-8.9); NEUTROPHILS % (AUTO) 68.9 % (43.0-81.0); PLATELET COUNT (AUTO) 109 /CMM (150-450); RED BLOOD CELL COUNT(AUTO) 4.54 MIL/uL (4.5-6.0); WHITE BLOOD COUNT (AUTO) 6.2 K/uL (4.3-11.0)
[2018-02-03 06:59] LABS: CALCIUM, SERUM 8.4 mg/dL (8.5-10.1); CARBON DIOXIDE 30 mmol/L (21-32); CHLORIDE 100 mmol/L (98-107); CREATININE 0.9 mg/dL (0.6-1.3); GLUCOSE 94 mg/dL (74-106); MAGNESIUM 1.7 mg/dL (1.8-2.4); PHOSPHORUS 2.2 mg/dL (2.5-4.9); POTASSIUM 3.7 mmol/L (3.5-5.1); SODIUM SERUM 138 mmol/L (136-145); UREA NITROGEN, BLOOD 16 mg/dL (7-18)
[2018-02-03 07:21] LABS: CHOLESTEROL 151 mg/dL (<200); FERRITIN 304 ng/mL (8-388); HDL CHOLESTEROL 89 mg/dL (40-60); LDL 58 mg/dL (0-99); TRIGLYCERIDES 60 mg/dL (30-150)
[2018-02-03 07:40] LABS: IRON, SERUM 212 ug/dl (50-175); TOTAL IRON BINDING CAPACITY 237 ug/dl (250-450)
[2018-02-03 08:00] VITALS: BP 154/104
[2018-02-03] MEDS: PANTOPRAZOLE 40 MG TABLET.DR PO SCH (08:05)
--- NOTE | 2018-02-03 08:10 | NUR ---
SLOT MACHINE FLOOR PERSON INITIAL NOTES Patient is awake, A/O x3 forgetful, appears anxious, denies any pain. Oxygen sat 91% non productive cough. Place on oxygen 2L/min via NC, tolerating well. Left AC IVC leaking, will replace. Home medication for recon. will informed MD. Maintained safety, will cont to monitor.
[2018-02-03] MEDS: Magnesium 1GM/D5W 100ML PREMIX 100 ML IV SCH ×2 (09:37→10:37)
[2018-02-03] MEDS ORDERED: K PHOS NEUTRAL 250 MG TABLET PO ONE (12:30)
[2018-02-03 16:00] VITALS: BP 128/87
--- NOTE | 2018-02-03 18:24 | NUR ---
MS RN NOTES Patient ambulates independently, denies pain. Low magnesium and phosphorus, supplemented today. Non productive cough, stable on RA, oxygen sat. 94%. Home medication for recon. MD is aware. Current BP 128/87 P92. Will endorse to oncoming RN.
--- NOTE | 2018-02-03 19:39 | NUR ---
MS RN NOTE PATIENT IN STABLE CONDITION, ALL VS STABLE, NO SIGNS OF SOB OR DISTRESS. PT ABLE TO MAKE NEEDS KNOWN. WAITING FOR MD TO DO MED RECON, WILL F/U. PT AMBULATORY WITH MINOR ASSIST. SAFETY MEASURES IN PLACE, BED LOCKED AND LOWEST POSITION, WITH UPPER BED RAILS UP X2, AND CALL LIGHT WITHIN REACH. ALL NEEDS CURRENTLY MET. WILL CONT. TO MONITOR THROUGHOUT SHIFT.
[2018-02-03 20:01] VITALS: BP 124/74
--- NOTE | 2018-02-03 20:15 | NUR ---
RN NOTES SPOKE TO GENEVA HARRIS REGARDING PATIENTS CONCERNED ON HIS HOME MEDS... DULCE MARIA DEJESUS RECONCILED PATIENT HOME MEDS, ORDER NOTED AND CARRIED OUT
--- NOTE | 2018-02-03 23:50 | NUR ---
MS RN NOTE PATIENT GIVEN AMBIEN 5 MG FOR INSOMNIA. WILL REASSESS IN ONE HOUR.
[2018-02-04 04:00] VITALS: BP 140/99
--- NOTE | 2018-02-04 06:28 | NUR ---
MS RN NOTE PT IN STABLE CONDITION, CURRENTLY RESTING IN BED. ALL VS STABLE, NO SOB OR SIGNS OF DISTRESS. ALL SAFETY MEASURES IN PLACE. BED IN LOWEST POSITION, WITH UPPER BED RAILS UP X2 AND CALL LIGHT WITHIN REACH. WILL ENDORSE TO NEXT SHIFT.
[2018-02-04 07:25] LABS: BASOPHILS % (AUTO) 0.5 % (0.0-2.0); EOSINOPHILS % (AUTO) 2.4 % (0.0-6.0); HEMATOCRIT 47 % (39-51); LYMPHOCYTES % (AUTO) 23.5 % (20.0-44.0); MEAN CORPUSCULAR HGB CONC 34 g/dl (31.0-36.0); MEAN CORPUSCULAR VOLUME 100 fL (80-96); MONOCYTES # (AUTO) 0.3 /CMM (0.1-1.30); MONOCYTES % (AUTO) 6.2 % (2.0-12.0); NEUTROPHILS # (AUTO) 2.8 /CMM (1.8-8.9); NEUTROPHILS % (AUTO) 67.4 % (43.0-81.0); PLATELET COUNT (AUTO) 94 /CMM (150-450); RED BLOOD CELL COUNT(AUTO) 4.71 MIL/uL (4.5-6.0); WHITE BLOOD COUNT (AUTO) 4.2 K/uL (4.3-11.0)
--- NOTE | 2018-02-04 07:48 | NUR ---
MS RN OPENING NOTES RECEIVED PATIENT IN STABLE CONDITION. IN NO APPARENT DISTRESS. BEDSIDE RAILS ARE UPX2. BED IS LOCKED AND LOWERED. CALL LIGHT IS WITHIN REACH. IV LINE IS INTACT AND PATENT. ALL NEEDS WERE MET. WILL CONTINUE TO MONITOR PATIENT.
[2018-02-04 07:59] LABS: ALANINE AMINOTRANSFERASE 31 U/L (12-78); ALBUMIN 3.6 g/dL (3.4-5.0); ALKALINE PHOSPHATASE 58 U/L (46-116); ASPARTATE AMINOTRANSFERASE 40 U/L (15-37); BILIRUBIN,TOTAL 0.8 mg/dL (0.2-1.0); CALCIUM, SERUM 8.9 mg/dL (8.5-10.1); CARBON DIOXIDE 30 mmol/L (21-32); CHLORIDE 99 mmol/L (98-107); CREATININE 0.7 mg/dL (0.6-1.3); GLUCOSE 106 mg/dL (74-106); MAGNESIUM 1.9 mg/dL (1.8-2.4); PHOSPHORUS 2.9 mg/dL (2.5-4.9); POTASSIUM 3.5 mmol/L (3.5-5.1); SODIUM SERUM 139 mmol/L (136-145); TOTAL PROTEIN, SERUM 6.5 g/dL (6.4-8.2); UREA NITROGEN, BLOOD 11 mg/dL (7-18)
[2018-02-04 08:00] VITALS: BP 140/92
[2018-02-04 08:04] VITALS: BP 148/107
[2018-02-04] MEDS: PANTOPRAZOLE 40 MG TABLET.DR PO SCH (08:04)
[2018-02-04] MEDS ORDERED: THIAMINE HCL 100 MG TABLET PO SCH (09:00)
[2018-02-04] MEDS ORDERED: ATENOLOL 50 MG TABLET PO SCH (09:00)
[2018-02-04] MEDS ORDERED: FOLIC ACID 1 MG TABLET PO SCH (09:00)
[2018-02-04] MEDS ORDERED: MAGNESIUM OXIDE 400 MG TABLET PO SCH (09:00)
[2018-02-04 10:26] LABS: EOSINOPHILS % (MANUAL) 3 % (0-4); LYMPHOCYTES % (MANUAL) 30 % (16-48); MONOCYTES % (MANUAL) 3 % (0-11.0); NEUTROPHILS % (MANUAL) 64 (42-76)
[2018-02-04] MEDS ORDERED: LORA-259 PO (12:10)
[2018-02-04] MEDS ORDERED: FLUT16SP16 NS (12:10)
--- NOTE | 2018-02-04 13:40 | NUR ---
MS CLINICAL INTERVIEWER NOTES DISCHARGED PATIENT IN STABLE CONDITION. IN NO APPARENT DISTRESS. EXITCARE WAS SIGNED AND GIVEN TO THE PATIENT. PRESCRIPTIONS WERE GIVEN TO THE PATIENT. ID BAND AND IV LINE WERE REMOVED. ALL NEEDS WERE MET. PATIENT REFUSED VANCOMYCIN ADMINISTRATION AT 1300. EXPLAINED RISKS AND BENEFITS AND IMPORTANCE BUT PATIENT CONTINUES TO REFUSE. BELONGINGS WERE CHECKED AND GIVEN TO THE PATIENT. PATIENT ESCORTED OUT OF THE FACILITY BY JOON SHER. CALLED TAXI FOR PATIENT.
== END 2018-02-04 13:45 | disposition home or self-care (01) | DRG 897 ==
LOC: ER 12:59 → TELE 15:53 → MED 02-03 10:41
PROVIDERS: ADMIT Nurse Practitioner Acute Care; ATTEND Nurse Practitioner Acute Care
DX: F10.288 Alcohol dependence with other alcohol-induced disorder (principal); E87.2 Acidosis; K29.20 Alcoholic gastritis without bleeding; E83.51 Hypocalcemia; E66.9 Obesity, unspecified; E78.5 Hyperlipidemia, unspecified; F17.210 Nicotine dependence, cigarettes, uncomplicated; Y90.5 Blood alcohol level of 100-119 mg/100 ml; T51.0X1A Toxic effect of ethanol, accidental (unintentional), initial encounter; D72.829 Elevated white blood cell count, unspecified; I10 Essential (primary) hypertension; Z68.31 Body mass index [BMI] 31.0-31.9, adult; D53.9 Nutritional anemia, unspecified; E16.2 Hypoglycemia, unspecified; K70.9 Alcoholic liver disease, unspecified; I25.2 Old myocardial infarction
CPT/HCPCS: 36415; 71045-TC; 80048-TC; 80053-TC; 80061-TC; 80076-TC; 82728-TC; 82962-TC; 83540-TC; 83735-TC; 83880; 84100-TC; 84484-TC; 85025-TC; 85730-TC; 87081-TC; 93307-TC; A4606; G0378; G0480; J2405; J3475; J3490; Z7610

== ENCOUNTER 2018-03-13 19:43 | Inpatient (IN) | payer MEDICARE, BC ==
[~2018-03-13] VITALS: Ht 175.3 cm; Wt 100.4 kg
[~2018-03-13 19:43] MED LIST changes: -ESCI10TA PO; +FLUT16SP16 NS; +LORA-259 PO
--- NOTE | 2018-03-13 19:48 | NUR ---
PT MARGA COMPLAINING OF ALCOHOL WITHDRAWAL, LAST KNOWN ALCOHOL CONSUMPTION WAS YESTERDAY MORNING. PT ADMITS TO ALCOHOL ABUSE. PT STATES HE CALLED 911 BECAUSE HE WAS FEELING WEAK. PT AAXO4. RESPIRATIONS EVEN AND UNLABORED. PT PUT ON THE MONITOR. PT AWAITING EVAL FROM ER .
--- NOTE | 2018-03-13 19:57 | NUR ---
XRAY AT BEDSIDE.
[2018-03-13] MEDS ORDERED: IV NS 0.9% 1,000 ML BAG IV ONE (20:00)
[2018-03-13] MEDS ORDERED: LORAZEPAM INJ 2 MG/ML VIAL IVP ONE (20:00)
--- NOTE | 2018-03-13 20:00 | NUR ---
OUTSIDE CUTTER HAND AT BEDSIDE FOR LAB DRAW. 20G R AC IV STARTED AND CONVERTED TO SALINE LOCK.
[2018-03-13 20:11] LABS: BASOPHILS % (AUTO) 0.5 % (0.0-2.0); EOSINOPHILS % (AUTO) 0.2 % (0.0-6.0); HEMATOCRIT 47 % (39-51); HEMOGLOBIN 16.2 g/dL (13.5-17.5); LYMPHOCYTES # (AUTO) 0.9 /CMM (0.8-4.8); LYMPHOCYTES % (AUTO) 9.9 % (20.0-44.0); MEAN CORPUSCULAR HGB CONC 35 g/dl (31.0-36.0); MEAN CORPUSCULAR VOLUME 99 fL (80-96); MONOCYTES # (AUTO) 0.4 /CMM (0.1-1.30); MONOCYTES % (AUTO) 4.3 % (2.0-12.0); NEUTROPHILS # (AUTO) 7.9 /CMM (1.8-8.9); NEUTROPHILS % (AUTO) 85.1 % (43.0-81.0); PLATELET COUNT (AUTO) 177 /CMM (150-450); RED BLOOD CELL COUNT(AUTO) 4.72 MIL/uL (4.5-6.0); WHITE BLOOD COUNT (AUTO) 9.3 K/uL (4.3-11.0)
[2018-03-13] MEDS ORDERED: LORAZEPAM INJ 2 MG/ML VIAL ONE (20:13)
[2018-03-13 20:23] LABS: CALCIUM, SERUM 8.5 mg/dL (8.5-10.1); CARBON DIOXIDE 24 mmol/L (21-32); CHLORIDE 91 mmol/L (98-107); CREATININE 0.8 mg/dL (0.6-1.3); GLUCOSE 95 mg/dL (74-106); POTASSIUM 3.4 mmol/L (3.5-5.1); SODIUM SERUM 130 mmol/L (136-145); UREA NITROGEN, BLOOD 14 mg/dL (7-18)
[2018-03-13 20:29] LABS: ALANINE AMINOTRANSFERASE 26 U/L (12-78); ALBUMIN 4.1 g/dL (3.4-5.0); ALCOHOL, BLOOD < 3 mg/dL (0-0); ALKALINE PHOSPHATASE 59 U/L (46-116); ASPARTATE AMINOTRANSFERASE 29 U/L (15-37); BILIRUBIN,DIRECT 0.5 mg/dL (0.0-0.2); BILIRUBIN,TOTAL 1.7 mg/dL (0.2-1.0); TOTAL PROTEIN, SERUM 7.1 g/dL (6.4-8.2)
[2018-03-13] MEDS ORDERED: OXYMETAZOLINE HCL NASAL SPRAY 30 ML BOTTLE NS ONE ×2 (20:30→20:37)
[2018-03-13] MEDS ORDERED: cetrizine 10 MG TABLET PO ONE (20:30)
[2018-03-13] MEDS ORDERED: cetrizine 10 MG TABLET ONE (20:37)
--- NOTE | 2018-03-13 20:54 | NUR ---
Pt is assigned to [facility] rm#: [id number], DX: alcohol withdrawl , and accepting: Yeyo Ho NP
--- NOTE | 2018-03-13 20:59 | NUR ---
GUADALUPE CHOE TAX ATTORNEY ON THE PHONE WITH DR TRIPLETT.
--- NOTE | 2018-03-13 21:05 | NUR ---
REPORT GIVEN TO ELZA MCCLELLAN FOR GABE.
[2018-03-13 21:14] LABS: APPEARANCE,URINE Clear (CLEAR); BILIRUBIN,URINE MODERATE (NEGATIVE); BLOOD, URINE Moderate Ery/uL (NEGATIVE); COLOR,URINE Dark (YELLOW); KETONES,URINE >=160 (NEGATIVE); LEUKOCYTE ESTERASE ,URINE Negative (NEGATIVE); NITRITE, URINE Negative (NEGATIVE); PH,URINE 5.5 (5.0-8.0); PROTEIN,URINE 30 mg/dl (NEGATIVE); UGLUCOSE Negative (NEGATIVE)
--- NOTE | 2018-03-13 21:16 | NUR ---
FINAL OPERATIONS TECHNICIAN NOTES PATIENT BROUGHT INTO THE UNIT VIA GURNEY, ALERT AND ORIENTED X 4, VERBALLY RESPONSIVE, NO SOB NOTED, BREATHING EVEN AND UNLABORED, AND IN NO ACUTE DISTRESS. PATIENT DENIES PAIN AT THIS TIME. ORIENTED PT TO UNIT, ROOM, CALL LIGHT AND USE OF CALL LIGHT. PT HAS A HISTORY OF PREVIOUS HOSPITALIZATION AND IS FAMILIAR WITH UNIT ORIENTATION. ALL PATIENT'S ATTENDED TO. INFORMED PT THAT HE IS NPO AT THIS TIME UNTIL ABDOMINAL ULTRASOUND IS COMPLETED. PLACED CALL LIGHT WITHIN EASY REACH. BED PLACED IN LOW POSITION AND LOCKED IN PLACE. PT WITH GOOD SAFETY AWARENESS. WILL CONTINUE TO MONITOR THIS PT.
[2018-03-13 21:24] LABS: BACTERIA,URINE Few /HPF (None Seen); SQUAMOUS EPITHELIAL CELL,UR Few /HPF (None Seen); WBC,URINE 0-2 /HPF (0-3)
[2018-03-13] MEDS ORDERED: ATEN50TA PO (21:27)
[2018-03-13] MEDS ORDERED: ONDANSETRON HCL/PF 4 MG/2 ML VIAL IVP PRN (21:30)
[2018-03-13] MEDS ORDERED: MAGNESIUM HYDROXIDE 30 ML UDC PO PRN (21:30)
[2018-03-13] MEDS ORDERED: hydrALAZINE HCL IV 20 MG VIAL IV PRN (21:30)
[2018-03-13] MEDS ORDERED: Z GUARD REMEDY 2 OZ OINT TP PRN (21:30)
[2018-03-13] MEDS ORDERED: HYDROCODONE/APAP 5/325MG 1 EACH TABLET PO PRN (21:30)
[2018-03-13] MEDS ORDERED: ACETAMINOPHEN 325 MG TABLET PO PRN (21:30)
[2018-03-13] MEDS ORDERED: MAG HYDROX/AL HYDROX/SIMETH 30 ML UDC PO PRN (21:30)
[2018-03-13] MEDS ORDERED: POTASSIUM CHLORIDE 20 MEQ TAB.PRT.SR PO ONE (22:00)
[2018-03-13] MEDS: IV NS 0.9% 1,000 ML IV PRN (23:21)
[2018-03-13] MEDS: ENOXAPARIN SODIUM 40 MG/0.4 ML DISP.SYRIN SQ SCH (23:57)
[2018-03-14 00:28] VITALS: BP 154/96
[2018-03-14] MEDS: LORAZEPAM 1 MG TABLET PO SCH ×4 (02:00→20:00)
[2018-03-14 05:01] VITALS: BP 133/87
--- NOTE | 2018-03-14 06:27 | NUR ---
RN CLOSING NOTES PT IN BED, ASLEEP BUT EASILY AROUSABLE, ALERT AND ORIENTED X 4, NO SOB, BREATHING EVEN AND UNLABORED, VERBALLY RESPONSIVE. PT ON ETOH WITHDRAWAL WITH NO NOTED CHILLS/TREMORS/NAUSEA/ HEADACHE/ANXIETY/ SEIZURES IN THIS SHIFT. ALL PATIENT'S NEEDS ATTENDED TO, ON TELE MONITORING WITH BASELINE HEART RATE OF 90s-100s. PT SINUS TACHYCARDIC: 120-130s WHEN PERFORMING ADLs. PT IN STABLE CONDITION. PLACED CALL LIGHT WITHIN EASY REACH. WILL ENDORSE TO AM SHIFT NURSE FOR CONTINUITY OF CARE.
[2018-03-14 07:00] LABS: BASOPHILS % (AUTO) 0.2 % (0.0-2.0); EOSINOPHILS % (AUTO) 1.8 % (0.0-6.0); HEMATOCRIT 45 % (39-51); HEMOGLOBIN 15.3 g/dL (13.5-17.5); LYMPHOCYTES # (AUTO) 1.4 /CMM (0.8-4.8); LYMPHOCYTES % (AUTO) 25.4 % (20.0-44.0); MEAN CORPUSCULAR HGB CONC 34 g/dl (31.0-36.0); MEAN CORPUSCULAR VOLUME 101 fL (80-96); MONOCYTES # (AUTO) 0.4 /CMM (0.1-1.30); MONOCYTES % (AUTO) 6.9 % (2.0-12.0); NEUTROPHILS # (AUTO) 3.6 /CMM (1.8-8.9); NEUTROPHILS % (AUTO) 65.7 % (43.0-81.0); PLATELET COUNT (AUTO) 147 /CMM (150-450); RED BLOOD CELL COUNT(AUTO) 4.46 MIL/uL (4.5-6.0); WHITE BLOOD COUNT (AUTO) 5.6 K/uL (4.3-11.0)
[2018-03-14 07:37] LABS: CHOLESTEROL 153 mg/dL (<200); HDL CHOLESTEROL 110 mg/dL (40-60); LDL 35 mg/dL (0-99); THYROID STIMULATING HORMONE 1.706 uIU/mL (0.358-3.74); TRIGLYCERIDES 81 mg/dL (30-150)
[2018-03-14 07:38] LABS: ALANINE AMINOTRANSFERASE 26 U/L (12-78); ALBUMIN 3.7 g/dL (3.4-5.0); ALKALINE PHOSPHATASE 49 U/L (46-116); ASPARTATE AMINOTRANSFERASE 30 U/L (15-37); BILIRUBIN,DIRECT 0.3 mg/dL (0.0-0.2); BILIRUBIN,TOTAL 1.4 mg/dL (0.2-1.0); CALCIUM, SERUM 8.5 mg/dL (8.5-10.1); CARBON DIOXIDE 26 mmol/L (21-32); CHLORIDE 100 mmol/L (98-107); CREATININE 0.8 mg/dL (0.6-1.3); GLUCOSE 81 mg/dL (74-106); MAGNESIUM 1.6 mg/dL (1.8-2.4); PHOSPHORUS 1.6 mg/dL (2.5-4.9); POTASSIUM 3.3 mmol/L (3.5-5.1); SODIUM SERUM 140 mmol/L (136-145); TOTAL PROTEIN, SERUM 6.4 g/dL (6.4-8.2); UREA NITROGEN, BLOOD 11 mg/dL (7-18)
[2018-03-14 08:00] VITALS: BP 125/80
--- NOTE | 2018-03-14 08:00 | NUR ---
DIESEL CRANE OPERATOR NOTES PATIENT IN BED SLEEPING NO SOB OR ACUTE DISTRESS NOTED. BED IN LOW LOCKED POSITION. CALL LIGHT WITHIN REACH WILL CONTINUE TO MONITOR.
[2018-03-14] MEDS: FOLIC ACID 1 MG TABLET PO SCH (08:20)
[2018-03-14] MEDS: ATENOLOL 50 MG TABLET PO SCH (08:21)
[2018-03-14] MEDS: PANTOPRAZOLE 40 MG TABLET.DR PO SCH (08:21)
[2018-03-14] MEDS: THIAMINE HCL 100 MG TABLET PO SCH (08:21)
--- NOTE | 2018-03-14 10:56 | NUR ---
WOUND CARE CONSULT: PT PRESENTS INDEPENDENT WITH BED MOBILITY AND CONTINENT AT THIS TIME. SKIN GROWTHS NOTED TO ARMS AND LEGS, PRESENT ON ADMISSION. DEFER TO MD FOR RAISED SKIN GROWTHS. RECOMMENDATIONS MADE FOR DRY SKIN CARE AND DISCUSSED WITH NURSING STAFF. WILL SEE PRN. IN AGREEMENT WITH PLAN OF CARE.
[2018-03-14] MEDS ORDERED: MINERAL OIL/PETROLATUM,WHITE 120 GM JAR TP PRN (11:00)
[2018-03-14] MEDS: Magnesium 1GM/D5W 100ML PREMIX 100 ML IV SCH ×2 (11:20→12:18)
[2018-03-14] MEDS ORDERED: K PHOS NEUTRAL 250 MG TABLET PO ONE (11:30)
[2018-03-14] MEDS ORDERED: POTASSIUM CHLORIDE 20 MEQ TAB.PRT.SR PO SCH (11:30)
[2018-03-14 16:00] VITALS: BP 129/74
--- NOTE | 2018-03-14 18:42 | NUR ---
MS RN NOTES PATIENT IN BED RESTING NO SOB OR ACUTE DISTRESS NOTED. PATIENT ALERT, ORIENTED X3 DENIES ANY PAIN. NO ACUTE CHANGES NOTED. WILL ENDORSE CARE TO PM SHIFT.
[2018-03-14 20:00] VITALS: BP 129/71
[2018-03-14] MEDS: LORAZEPAM INJ 2 MG/ML VIAL IV PRN ×2 (20:10→20:14)
[2018-03-14] MEDS: ENOXAPARIN SODIUM 40 MG/0.4 ML DISP.SYRIN SQ SCH (20:11)
--- NOTE | 2018-03-14 21:32 | NUR ---
RN MS OPENING NOTES RECEIVED PT I BED, AWAKE ALERT ORIENTED X4, BREATHING EVEN AND UNLABORED ON ROOM AIR, NO SOB NOTED. NO COMPLAINT OF PAIN OR DISCOMFORT AT THIS TIME. IV ACCESS ON THE RIGHT AC 20 G WITH NS @75ML/HR. BED IN LOWEST LOCKED POSITION, CALL LIGHT WITHIN REACH AT ALL TIMES, WILL CONTINUE TO MONITOR.
[2018-03-15] MEDS: LORAZEPAM 1 MG TABLET PO SCH ×3 (01:24→14:00)
[2018-03-15] MEDS: IV NS 0.9% 1,000 ML IV PRN (05:08)
--- NOTE | 2018-03-15 06:15 | NUR ---
RN MS CLOSING NOTES PT REMAINS IN BED, AWAKE ALERT ORIENTED X4, BREATHING EVEN AND UNLABORED ON ROOM AIR, NO SOB NOTED. NO COMPLAINT OF PAIN OR DISCOMFORT AT THIS TIME. IV ACCESS ON THE RIGHT AC 20 G AND LEFT HAND 22 G WITH NS @75ML/HR. BED IN LOWEST LOCKED POSITION, CALL LIGHT WITHIN REACH AT ALL TIMES, WILL ENDORSE TO DAY NURSE FOR GABE.
[2018-03-15 06:50] LABS: CALCIUM, SERUM 8.8 mg/dL (8.5-10.1); CARBON DIOXIDE 29 mmol/L (21-32); CHLORIDE 102 mmol/L (98-107); CREATININE 0.8 mg/dL (0.6-1.3); GLUCOSE 88 mg/dL (74-106); MAGNESIUM 1.8 mg/dL (1.8-2.4); POTASSIUM 3.2 mmol/L (3.5-5.1); SODIUM SERUM 140 mmol/L (136-145); UREA NITROGEN, BLOOD 11 mg/dL (7-18)
--- NOTE | 2018-03-15 07:59 | NUR ---
MS RN NOTES PATIENT IN BED SLEEPING NO SOB OR ACUTE DISTRESS NOTED. PERIPHERAL IV INTACT PATENT. BED IN LOW LOCKED POSITION. CALL LIGHT WITHIN REACH WILL CONTINUE TO MONITOR.
[2018-03-15 08:00] VITALS: BP 149/96
[2018-03-15] MEDS: FOLIC ACID 1 MG TABLET PO SCH (08:13)
[2018-03-15] MEDS: PANTOPRAZOLE 40 MG TABLET.DR PO SCH (08:13)
[2018-03-15] MEDS: THIAMINE HCL 100 MG TABLET PO SCH (08:13)
[2018-03-15 08:15] VITALS: BP 149/96
[2018-03-15] MEDS: ATENOLOL 50 MG TABLET PO SCH (08:15)
[2018-03-15] MEDS: POTASSIUM CHLORIDE 20 MEQ TAB.PRT.SR PO SCH ×2 (10:41→13:10)
[2018-03-15] MEDS ORDERED: K PHOS NEUTRAL 250 MG TABLET PO ONE (13:00)
--- NOTE | 2018-03-15 15:30 | NUR ---
MS RN NOTES PATIENT DISCHARGED HOME ALERT, ORIENTED X3 IN STABLE CONDITION. MD AWARE OF ABNORMAL LABS. DISCHARGE TEACHING PROVIDED PATIENT VERBALIZED UNDERSTANDING. PATIENT STATES HIS SON CALLED UBER FOR HIM ANS WILL MEET HIM AT HOME. DISCHARGE PROTOCOL FOLLOWED. PATIENT REFUSED DISCHARGE PICTURES STATES HE HAS NO WOUND ONLY SCABS AND THEY JUST TOOK A PICTURE OF IT. ALL BELONGINGS ACCOUNTED FOR, BELONGING LIST SIGNED. PATIENT ESCORTED TO CAR. PERIPHERAL IV REMOVED WITH MINIMAL BLEEDING. ID BAND REMOVED.
[2018-03-24] MEDS ORDERED: LORAZEPAM INJ 2 MG/ML VIAL IV ONE (22:00)
== END 2018-03-15 15:30 | disposition home or self-care (01) | DRG 897 ==
LOC: ER 19:45 → TELE 21:03 → MED 03-14 10:57
PROVIDERS: ADMIT Nurse Practitioner Acute Care
DX: F10.239 Alcohol dependence with withdrawal, unspecified (principal); E87.1 Hypo-osmolality and hyponatremia; E78.5 Hyperlipidemia, unspecified; E66.9 Obesity, unspecified; I16.0 Hypertensive urgency; I10 Essential (primary) hypertension; E80.6 Other disorders of bilirubin metabolism; E87.6 Hypokalemia; F17.210 Nicotine dependence, cigarettes, uncomplicated; Z82.3 Family history of stroke; Z82.49 Family history of ischemic heart disease and other diseases of the circulatory system; Z83.3 Family history of diabetes mellitus; E86.1 Hypovolemia; Z68.32 Body mass index [BMI] 32.0-32.9, adult
CPT/HCPCS: 36415; 71045-TC; 76700-TC; 80048-TC; 80061-TC; 80076-TC; 80305; 81000-TC; 83735-TC; 84100-TC; 84443-TC; 85025-TC; 87081-TC; G0378; G0480; J1650; J2060; J3475; J7030

== ENCOUNTER 2018-03-24 20:38 | Emergency (ER) | payer MEDICARE, BC ==
[~2018-03-24] VITALS: Ht 175.3 cm; Wt 95.3 kg
--- NOTE | 2018-03-24 21:00 | NUR ---
orders entered, xr chest done and blood work obtained, fluids order.
--- NOTE | 2018-03-24 21:10 | NUR ---
pt biba by fire engine for etoh, initial assesment and vs taken, placed on er bed 13, seen by er karin grey for eval, awaiting orders.
[2018-03-24] MEDS ORDERED: ATENOLOL 50 MG TABLET ONE (21:11)
[2018-03-24 21:14] LABS: BASOPHILS % (AUTO) 0.7 % (0.0-2.0); EOSINOPHILS % (AUTO) 0.5 % (0.0-6.0); HEMATOCRIT 48 % (39-51); HEMOGLOBIN 16.6 g/dL (13.5-17.5); LYMPHOCYTES # (AUTO) 1.1 /CMM (0.8-4.8); LYMPHOCYTES % (AUTO) 16.2 % (20.0-44.0); MEAN CORPUSCULAR HGB CONC 34 g/dl (31.0-36.0); MEAN CORPUSCULAR VOLUME 101 fL (80-96); MONOCYTES # (AUTO) 0.5 /CMM (0.1-1.30); NEUTROPHILS % (AUTO) 75.6 % (43.0-81.0); PLATELET COUNT (AUTO) 169 /CMM (150-450); RED BLOOD CELL COUNT(AUTO) 4.78 MIL/uL (4.5-6.0); WHITE BLOOD COUNT (AUTO) 6.6 K/uL (4.3-11.0)
[2018-03-24 21:21] LABS: CALCIUM, SERUM 8.9 mg/dL (8.5-10.1); CARBON DIOXIDE 28 mmol/L (21-32); CHLORIDE 100 mmol/L (98-107); CREATININE 0.8 mg/dL (0.6-1.3); GLUCOSE 122 mg/dL (74-106); POTASSIUM 3.4 mmol/L (3.5-5.1); SODIUM SERUM 140 mmol/L (136-145); UREA NITROGEN, BLOOD 9 mg/dL (7-18)
[2018-03-24 21:27] LABS: ALANINE AMINOTRANSFERASE 38 U/L (12-78); ALBUMIN 4.2 g/dL (3.4-5.0); ALCOHOL, BLOOD < 3 mg/dL (0-0); ALKALINE PHOSPHATASE 80 U/L (46-116); ASPARTATE AMINOTRANSFERASE 31 U/L (15-37); BILIRUBIN,DIRECT 0.3 mg/dL (0.0-0.2); BILIRUBIN,TOTAL 0.9 mg/dL (0.2-1.0); TOTAL PROTEIN, SERUM 7.3 g/dL (6.4-8.2)
[2018-03-24] MEDS ORDERED: ATENOLOL 50 MG TABLET PO ONE (21:30)
[2018-03-24] MEDS ORDERED: IV NS 0.9% 1,000 ML BAG IV ONE (21:30)
[2018-03-24] MEDS ORDERED: ONDANSETRON HCL/PF 4 MG/2 ML VIAL ONE (21:49)
[2018-03-24] MEDS ORDERED: ONDANSETRON HCL/PF 4 MG/2 ML VIAL IV ONE (22:00)
[2018-03-24] MEDS ORDERED: LORAZEPAM INJ 2 MG/ML VIAL ONE (23:59)
[2018-03-25] MEDS ORDERED: LORAZEPAM INJ 2 MG/ML VIAL IV ONE
[2018-03-25] MEDS ORDERED: IV NS 0.9% 1,000 ML BAG IV ONE
--- NOTE | 2018-03-25 01:17 | NUR ---
Patient discharged to home in stable condition. Ambulatory with stable gait, adress obtained, front office called taxi for pt. Written and verbal after care instructions given. Patient verbalizes understanding of instruction.
[2018-03-25 01:19] VITALS: BP 133/83
== END 2018-03-25 01:20 | disposition home or self-care (01) ==
LOC: ER 20:40
DX: F10.10 Alcohol abuse, uncomplicated (principal); I10 Essential (primary) hypertension; F17.200 Nicotine dependence, unspecified, uncomplicated; Y90.0 Blood alcohol level of less than 20 mg/100 ml; Z90.49 Acquired absence of other specified parts of digestive tract; Z60.2 Problems related to living alone
CPT/HCPCS: 36415; 71045; 80048; 80076; 80307; 85025; 93005; 96374; 96375; 99284; A4606; J2060; J2405; J7030 ×2; G0480

== ENCOUNTER 2018-10-27 07:53 | Emergency (ER) | payer MEDICARE, BC ==
[~2018-10-27] VITALS: Ht 175.3 cm; Wt 92.5 kg
--- NOTE | 2018-10-27 07:55 | NUR ---
[id number] FROM HOME C/O ABDOMINAL PRESSURE, ADMITS ETOH RELAPSE, ALSO C/O GENERALIZED WEAKNESS. TO ER BED 4, HOOKED TO MONITOR, CHANGED TO GOWN, PROVIDED W WARM BLANKET, DR WADE AT BEDSIDE
[2018-10-27] MEDS ORDERED: IV NS 0.9% 1,000 ML BAG IV ONE (08:30)
[2018-10-27] MEDS ORDERED: METOPROLOL TARTRATE 25 MG TABLET PO ONE (08:30)
[2018-10-27] MEDS ORDERED: ONDANSETRON HCL/PF 4 MG/2 ML VIAL IVP ONE (08:30)
[2018-10-27] MEDS ORDERED: Thiamine 100 MG in IV D5W 50 ML IV SCH (08:30)
[2018-10-27] MEDS ORDERED: ONDANSETRON HCL/PF 4 MG/2 ML VIAL ONE (08:33)
[2018-10-27] MEDS ORDERED: METOPROLOL TARTRATE 25 MG TABLET ONE (08:33)
[2018-10-27 08:37] LABS: BASOPHILS % (AUTO) 0.9 % (0.0-2.0); EOSINOPHILS % (AUTO) 2.3 % (0.0-6.0); HEMATOCRIT 49 % (39-51); HEMOGLOBIN 16.7 g/dL (13.5-17.5); LYMPHOCYTES % (AUTO) 20.8 % (20.0-44.0); MEAN CORPUSCULAR HGB CONC 35 g/dl (31.0-36.0); MEAN CORPUSCULAR VOLUME 99 fL (80-96); MONOCYTES # (AUTO) 0.3 /CMM (0.1-1.30); MONOCYTES % (AUTO) 6.6 % (2.0-12.0); NEUTROPHILS # (AUTO) 3.5 /CMM (1.8-8.9); NEUTROPHILS % (AUTO) 69.4 % (43.0-81.0); PLATELET COUNT (AUTO) 169 /CMM (150-450); RED BLOOD CELL COUNT(AUTO) 4.88 MIL/uL (4.5-6.0)
--- NOTE | 2018-10-27 08:37 | NUR ---
DIRECTOR MISSION AT BEDSIDE
[2018-10-27 08:39] LABS: CALCIUM, SERUM 9.3 mg/dL (8.5-10.1); CREATININE 0.8 mg/dL (0.6-1.3); POTASSIUM 3.4 mmol/L (3.5-5.1)
[2018-10-27 08:44] LABS: ALBUMIN 4.2 g/dL (3.4-5.0); BILIRUBIN,DIRECT 0.2 mg/dL (0.0-0.2); BILIRUBIN,TOTAL 0.7 mg/dL (0.2-1.0); TOTAL PROTEIN, SERUM 7.1 g/dL (6.4-8.2)
[2018-10-27 09:48] LABS: APPEARANCE,URINE Hazy (CLEAR); BILIRUBIN,URINE Negative (NEGATIVE); BLOOD, URINE Small Ery/uL (NEGATIVE); COLOR,URINE Yellow (YELLOW); KETONES,URINE 15 (NEGATIVE); LEUKOCYTE ESTERASE ,URINE Negative (NEGATIVE); NITRITE, URINE Negative (NEGATIVE); PROTEIN,URINE Negative (NEGATIVE); UGLUCOSE Negative (NEGATIVE)
[2018-10-27 09:54] LABS: BACTERIA,URINE Rare /HPF (None Seen); SQUAMOUS EPITHELIAL CELL,UR Few /HPF (None Seen); WBC,URINE 0-3 /HPF (0-3)
--- NOTE | 2018-10-27 11:30 | NUR ---
ANGELICA NETTLES AT BEDSIDE
--- NOTE | 2018-10-27 11:37 | NUR ---
Social service consult requested by Dr. Burgess for inpatient alcohol treatment program. Pt. is a 73 year old male who states he once again relapsed on alcohol and has been on a drinking binge for one week. Patient called 911 this morning because he feels very weak. SW met with pt. bedside. Pt. is alert and oriented x 4. Pt. is a very pleasant man. Pt. states he lives alone at [id number] [place] [address] DrAugusto in [place]. Pt's contact number is . Pt. is . Pt. is an alcoholic and drinks a pint to a fifth of bourbon per day.Pt. has been to several treatment program. Twice at [facility] and most recently at [facility] about a year ago. Pt. stated he went on a binge recently. SW. offered pt. inpatient treatment program, however pt. declined stating he wants to go to an outpatient program. ANGELICA contacted Yeyo Resendiz at [facility] who informed ANGELICA that they do have an outpatient program and to have pt. contact Carlos Olivera at [phone]. ANGELICA gave pt. contact information for Carlos Olivera. ANGELICA updated Dr. Burgess with aforementioned information.
--- NOTE | 2018-10-27 12:18 | NUR ---
IV removed. Catheter intact and site benign. Pressure and 4x4 applied to site. No bleeding noted.Patient discharged to home in stable condition. Written and verbal after care instructions given. Patient verbalizes understanding of instruction.
[2018-10-27 12:19] VITALS: BP 158/102
== END 2018-10-27 12:20 | disposition home or self-care (01) ==
LOC: ER 07:57
DX: F10.20 Alcohol dependence, uncomplicated (principal); I10 Essential (primary) hypertension; F17.200 Nicotine dependence, unspecified, uncomplicated; E66.9 Obesity, unspecified; Z68.30 Body mass index [BMI] 30.0-30.9, adult; R00.0 Tachycardia, unspecified; Y90.9 Presence of alcohol in blood, level not specified; Z90.49 Acquired absence of other specified parts of digestive tract; Z60.2 Problems related to living alone
CPT/HCPCS: 36415; 71045; 80048; 80076; 81001; 82140; 83690; 85025; 93005; 96365; 96375; 99284; J2405; J3411; J7030; J7060; 81000-TC

== ENCOUNTER 2019-03-20 01:11 | Inpatient (IN) | payer MEDICARE, BC ==
[~2019-03-20] VITALS: Ht 175.3 cm; Wt 91.2 kg
--- NOTE | 2019-03-20 01:18 | NUR ---
PT [id number] FROM HOME C/C ETOH AND HIGH BLOOD PRESSURE, PT WANTS HELP WITH ETOH ADDICTION. PT AOX4. NAD NOTED. RESP EVEN AND UNLABORED. PT DENIES PAIN AT THIS TIME. PT ON MONITOR IN BED. WILL CONTINUE TO MONITOR.
--- NOTE | 2019-03-20 02:58 | NUR ---
BLOOD DRAWN AND GIVEN TO PHLEB
[2019-03-20] MEDS ORDERED: IV NS 0.9% 1,000 ML BAG IV ONE (03:00)
[2019-03-20 03:13] LABS: BASOPHILS # (AUTO) 0.1 /CMM (0.0-0.2); EOSINOPHILS % (AUTO) 0.7 % (0.0-6.0); HEMATOCRIT 53 % (39-51); HEMOGLOBIN 17.9 g/dL (13.5-17.5); LYMPHOCYTES # (AUTO) 1.4 /CMM (0.8-4.8); MEAN CORPUSCULAR HGB CONC 34 g/dl (31.0-36.0); MEAN CORPUSCULAR VOLUME 98 fL (80-96); MONOCYTES # (AUTO) 0.4 /CMM (0.1-1.30); MONOCYTES % (AUTO) 5.1 % (2.0-12.0); NEUTROPHILS # (AUTO) 5.2 /CMM (1.8-8.9); NEUTROPHILS % (AUTO) 73.2 % (43.0-81.0); PLATELET COUNT (AUTO) 247 /CMM (150-450); RED BLOOD CELL COUNT(AUTO) 5.37 MIL/uL (4.5-6.0)
[2019-03-20 03:17] LABS: CALCIUM, SERUM 8.7 mg/dL (8.5-10.1); POTASSIUM 3.8 mmol/L (3.5-5.1)
--- NOTE | 2019-03-20 03:20 | NUR ---
Patient is resting comfortably in bed with eyes closed. Easily aroused. VSS.
--- NOTE | 2019-03-20 03:28 | NUR ---
RADIOLOGY AT BEDSIDE FOR XRAY
[2019-03-20 03:29] LABS: ALBUMIN 4.5 g/dL (3.4-5.0); BILIRUBIN,DIRECT 0.3 mg/dL (0.0-0.2); TOTAL PROTEIN, SERUM 7.5 g/dL (6.4-8.2)
--- NOTE | 2019-03-20 05:52 | NUR ---
VIPIN (FRIEND) [phone] WILL PICK HIM UP AT 0900
--- NOTE | 2019-03-20 08:33 | NUR ---
VIPIN CALLED TO SAY THAT PT CANNOT BE RELEASED BECAUSE THERE IS NO ONE HOME TO RECIEVE HIM AND PT DOES NOT HAVE HOUSE KEYS WITH HIM SO IS UNABLE TO GET IN TO THE HOUSE. SON TESSA WILL CONTACT US FOR WHAT TO DO BECAUSE SON IS TRYING TO GET PT PLACEMENT AT [facility]. UNKNOWN ETA.
--- NOTE | 2019-03-20 09:00 | NUR ---
patient ambulatory with steady gait, no distress noted, needs attended, kept comfortable.
--- NOTE | 2019-03-20 09:42 | NUR ---
spoke with zaina patient's son, and stated he's "on the other side of town, can't pick him up until noon time"
--- NOTE | 2019-03-20 09:45 | NUR ---
PATIENT OFFERED BY CLARE, PATIENT REFUSED TO EAT.
--- NOTE | 2019-03-20 10:26 | NUR ---
Consulted with social service member Clara Alex who informed ELECTRONIC COMPONENT PROCESSOR, pt will be admitted to [facility] for detox.
--- NOTE | 2019-03-20 10:30 | NUR ---
Clinical Social Work Note This 73 year old male was brought in by RA due to hypertension and alcohol withdrawal. Pt.'s children are requesting alcohol detox. for him. He has been to [facility] ([phone]) in the past. Pt. was seen in ED where he dnies any suicidal ideation or hisrot of suicidality. He feels uncomfortable currently but is alert and oriented to person, place and situation. He states he wants a private facility for detox. This clinician consulted with Dr Hooker who agreed to admit this patient for alcohol withdrawal. Patient is not able to fully cooperate and discuss aftercare plans but this will be discussed later. His children (daugther is caring and involved). Pt. does not need a sitter even though there is one at his bedside in ED. C-SSRS was done and patient denies suicidal ideation or plan. He is also not homocidal.Admitting diagnosis is alcohol dependence with withdrawal. Dr Hooker to admit to medicine. Patient is agreeable and asks " when will this happen?". Dr Avitia, ED MD aware of plan and agreeable.
--- NOTE | 2019-03-20 10:50 | NUR ---
Informed patient's son, that patient will be admitted.
--- NOTE | 2019-03-20 11:30 | NUR ---
CALLED NURSING SUP FOR TELE BED.
--- NOTE | 2019-03-20 13:03 | NUR ---
NURSING SUP GAVE TELE BED 306-2.
--- NOTE | 2019-03-20 13:10 | NUR ---
REPORT GIVEN TO ROSIBEL HALL.
[2019-03-20] MEDS ORDERED: ONDANSETRON 4 MG TAB.RAPDIS ONE (13:21)
--- NOTE | 2019-03-20 13:25 | NUR ---
PATIENT OFFERED FOOD, REFUSED, BUT GIVEN OJ AFTER ZOFRAN PO.
[2019-03-20] MEDS ORDERED: ONDANSETRON 4 MG TAB.RAPDIS SL ONE (13:30)
[2019-03-20] MEDS ORDERED: ATENOLOL 50 MG TABLET ONE (13:44)
[2019-03-20 14:00] VITALS: BP 163/87
[2019-03-20] MEDS ORDERED: MAG HYDROX/AL HYDROX/SIMETH 30 ML UDC PO PRN (14:00)
[2019-03-20] MEDS ORDERED: ONDANSETRON HCL/PF 4 MG/2 ML VIAL IVP PRN (14:00)
[2019-03-20] MEDS ORDERED: LORAZEPAM 1 MG TABLET PO PRN (14:00)
[2019-03-20] MEDS ORDERED: CLONIDINE HCL 0.1 MG TABLET PO PRN (14:00)
[2019-03-20] MEDS ORDERED: MAGNESIUM HYDROXIDE 30 ML UDC PO PRN (14:00)
[2019-03-20] MEDS ORDERED: Z GUARD REMEDY 2 OZ OINT TP PRN (14:00)
[2019-03-20] MEDS ORDERED: ZOLPIDEM TARTRATE 5 MG TABLET PO PRN (14:00)
[2019-03-20] MEDS ORDERED: HYDROCODONE/APAP 5/325MG 1 EACH TABLET PO PRN (14:00)
[2019-03-20] MEDS ORDERED: ACETAMINOPHEN 325 MG TABLET PO PRN (14:00)
[2019-03-20 14:05] VITALS: BP 163/87
--- NOTE | 2019-03-20 14:05 | NUR ---
m/s glass ribbon machine operator: admission admitted this 73 year old male pt from [facility] with dx: metabolic encephalopathy. awake, a/ox4. pt wearing own clothes, offered hospital gown, stated, "not right now." pt refused skin assessment, but noted jarocho arm with dryness. no c/o pain or any discomfort. oriented to room and surroundings. in no apparent distress noted. instructed to call for assistance. will continue to monitor.
[2019-03-20] MEDS: IV NS 0.9% 1,000 ML IV PRN (14:47)
[2019-03-20] MEDS: CHLORDIAZEPOXIDE HCL 25 MG CAPSULE PO SCH (15:24)
[2019-03-20 16:00] VITALS: BP 148/70
--- NOTE | 2019-03-20 17:00 | NUR ---
m/s marine oiler: notes pt still wearing his own clothes, offered hospital gown, but still refusing. instructed to call for assistance. iv fluids infusing well. will continue to monitor.
--- NOTE | 2019-03-20 18:48 | NUR ---
m/s graphic art sales representative: notes in bed resting comfortable. no distress noted. continue on iv fluids, infusing well. needs attended. instructed to call for assistance. will continue to monitor.
--- NOTE | 2019-03-20 19:05 | NUR ---
m/s marriage counselor: notes bedside report given to concha (rn) for continuity of care.
--- NOTE | 2019-03-20 19:06 | NUR ---
MS RN OPENING NOTES Received patient A/O x4, awake on bed. On RA, no respiratory distress noted. Patient denies any discomfort at this time. With IVF infusing well as ordered, IV site no s/sx of phlebitis or infection. Discussed with patient the POC within the shift, patient verbalized understanding. Kept on bed clean, dry and comfortable. Call light within easy reach. Will continue to monitor accordingly.
[2019-03-20 20:00] VITALS: BP 136/74
[2019-03-21] MEDS: IV NS 0.9% 1,000 ML IV PRN (01:19)
[2019-03-21 06:20] LABS: BASOPHILS % (AUTO) 0.5 % (0.0-2.0); EOSINOPHILS % (AUTO) 2.6 % (0.0-6.0); HEMATOCRIT 44 % (39-51); LYMPHOCYTES # (AUTO) 1.2 /CMM (0.8-4.8); LYMPHOCYTES % (AUTO) 25.8 % (20.0-44.0); MEAN CORPUSCULAR HGB CONC 34 g/dl (31.0-36.0); MEAN CORPUSCULAR VOLUME 99 fL (80-96); MONOCYTES # (AUTO) 0.3 /CMM (0.1-1.30); MONOCYTES % (AUTO) 5.6 % (2.0-12.0); NEUTROPHILS % (AUTO) 65.5 % (43.0-81.0); PLATELET COUNT (AUTO) 140 /CMM (150-450); RED BLOOD CELL COUNT(AUTO) 4.46 MIL/uL (4.5-6.0); WHITE BLOOD COUNT (AUTO) 4.6 K/uL (4.3-11.0)
--- NOTE | 2019-03-21 06:44 | NUR ---
MS RN CLOSING NOTES Patient asleep, easily awaken. On RA, no SOB/respiratory distress noted. No s/sx of discomfort noted at this time. Due meds given as ordered, no ASE noted. All nursing needs attended, no new complaints made. Kept on bed clean, dry and comfortable. On fall and aspiration precautions. Call light within easy reach. Endorsed.
[2019-03-21 06:47] LABS: CALCIUM, SERUM 8.2 mg/dL (8.5-10.1); CREATININE 0.8 mg/dL (0.6-1.3); MAGNESIUM 1.5 mg/dL (1.8-2.4); PHOSPHORUS 1.6 mg/dL (2.5-4.9); POTASSIUM 3.6 mmol/L (3.5-5.1)
--- NOTE | 2019-03-21 07:30 | NUR ---
RN MS NOTES PT AWAKE, ALERT AND ORIENTED, ACCIDENTALLY PULLED OUT IV LINE, MINIMAL BLEEDING NOTED, NO COMPLAINT OF PAIN OR ANY DISCOMFORT, NOT IN DISTRESS, AMBULATES WITH STEADY GAIT TO THE BATHROOM, SEEN BY DR. IRIZARRY, PLAN OF CARE DISCUSSED WITH PT, VERBALIZED UNDERSTANDING, MD AWARE THAT IV LINE ACCIDENTALLY OUT, IV MEDS CHANGED TO PO.
[2019-03-21 08:00] VITALS: BP 128/76
[2019-03-21] MEDS ORDERED: Potassium Phosphate meq 11 MEQ in IV D5W 100 ML IV SCH (08:00)
[2019-03-21] MEDS ORDERED: Magnesium 1GM/D5W 100ML PREMIX 100 ML IV SCH (08:00)
[2019-03-21] MEDS ORDERED: MAGNESIUM OXIDE 400 MG TABLET PO ONE (09:00)
[2019-03-21] MEDS ORDERED: POTASSIUM CHLORIDE 20 MEQ TAB.PRT.SR PO ONE (09:00)
[2019-03-21] MEDS: CHLORDIAZEPOXIDE HCL 25 MG CAPSULE PO SCH ×2 (09:16→16:43)
[2019-03-21] MEDS: FOLIC ACID 1 MG TABLET PO SCH (09:17)
[2019-03-21] MEDS: MULTIVITAMINS,THERAGRAN 1 UDTAB TABLET PO SCH (09:17)
[2019-03-21] MEDS: ATENOLOL 50 MG TABLET PO SCH (09:17)
[2019-03-21] MEDS: THIAMINE HCL 100 MG TABLET PO SCH (09:17)
--- NOTE | 2019-03-21 11:52 | NUR ---
Social service consult requested by Dr. Hooker for alcohol abuse. Per MD notes and chart review, pt is a 73-year-old man with history of chronic alcoholism presented with endorsement of feeling generalized dismay that he continues to drink and preoccupation that he may have "blown out" his liver. COMBINATION MACHINE TOOL SETTER met with the pt bedside. COMBINATION MACHINE TOOL SETTER introduced self and explained her role. Pt. is alert and oriented x 4. Pt was sitting in his chair bedside. Pt was wearing his hospital gown. Pt states he lives alone in a townhouse in [place]. Pt has a son named Robbi, who is the executor of pt's trustee. Pt states he drinks approximately 1/5th of bourbon daily. Pt reports to have been drinking since he was in a fraternity. Pt. 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 Pt. reports to have been to several alcohol treatment programs. Pt reports to have been to [facility] twice. Pt. has been sober in the past for 4 years but began drinking again, and couldn't state as to why he relapsed. Pt reported that he's been through rehabilitation multiple times in the past but continues to drink Pt. has also been to [facility] located at [address] [place] [address]. . Pt appears to have some insight into his alcoholism. Pt is willing to go to a treatment center, however, pt stated, I do not want to go to an assisted living. Pt gave COMBINATION MACHINE TOOL SETTER permission to speak with pt's son Robbi regarding discharge planning. Pt currently denies any suicidal and homicidal ideations and visual/auditory hallucinations at this time. COMBINATION MACHINE TOOL SETTER provided active listening and supportive counseling to the pt. COMBINATION MACHINE TOOL SETTER encouraged pt to go to treatment. COMBINATION MACHINE TOOL SETTER also gave pt. list of referrals to alcohol treatment programs such as [facility], [facility], [facility] and more. COMBINATION MACHINE TOOL SETTER contacted pt's son Robbi . Robbi informed COMBINATION MACHINE TOOL SETTER that he needs his father to go to [facility] ( [facility]) inpatient hospitalization once medically cleared from the hospital. Robbi stated, his dad cannot be discharged back home. COMBINATION MACHINE TOOL SETTER informed Robbi she will reach out to Yeyo Castillo at [facility] and begin the process of getting the pt. to the treatment program. Robbi also inquired conservatorship. [facility] informed Robbi about [employer] services and sent him their contact information via email. COMBINATION MACHINE TOOL SETTER contacted Yeyo Castillo at [facility] and faxed clinical referral packet per his request to . COMBINATION MACHINE TOOL SETTER informed lining caser Brijesh that pt. will most likely be discharged to [facility], if accepted. .
--- NOTE | 2019-03-21 15:14 | NUR ---
RIG HAND received a message from Yeyo Castillo at [facility] informing RIG HAND that pt has been accepted to [facility] tomorrow and they will provide the transportation around 1:30PM. RIG HAND contacted pt's son Robbi and informed him as well regarding pt's discharge plan. Robbi is in agreement with pt's discharge plan.
--- NOTE | 2019-03-21 18:07 | NUR ---
RN MS NOTES PT IN BED, AWAKE, ALERT AND ORIENTED, WATCHING TV, DENIES PAIN, NOT IN DISTRESS, IV FLUIDS INFUSING WELL, CALL LIGHT WITHIN REACH, SAFETY PRECAUTIONS OBSERVED.
--- NOTE | 2019-03-21 19:50 | NUR ---
MS RN NOTE: PATIENT RESTING IN BED, NO ACUTE DISTRESS NOTED. BREATHING EVEN AND UNLABORED, NO SOB NOTED. IV TO LFA IN PLACE, INFUSING NS AT 100ML/HR. BED LOCKED AND IN LOWEST POSITION, CALL LIGHT IN REACH. WILL CONTINUE TO MONITOR.
[2019-03-21 19:56] VITALS: BP 130/89
--- NOTE | 2019-03-22 03:00 | NUR ---
MS RN NOTE: PATIENT RESTING IN BED, NO ACUTE DISTRESS NOTED. BREATHING EVEN AND UNLABORED, NO SOB NOTED. IV TO LFA IN PLACE. BED LOCKED AND IN LOWEST POSITION, CALL LIGHT IN REACH. WILL CONTINUE TO MONITOR.
--- NOTE | 2019-03-22 06:25 | NUR ---
MS RN NOTE: PATIENT RESTING IN BED, NO ACUTE DISTRESS NOTED. BREATHING EVEN AND UNLABORED, NO SOB NOTED. IV TO LFA IN PLACE. BED LOCKED AND IN LOWEST POSITION, CALL LIGHT IN REACH. WILL ENDORSE TO DAY NURSE TO CONTINUE WITH PLAN OF CARE.
[2019-03-22 06:27] LABS: BASOPHILS % (AUTO) 0.7 % (0.0-2.0); HEMATOCRIT 48 % (39-51); HEMOGLOBIN 15.7 g/dL (13.5-17.5); LYMPHOCYTES # (AUTO) 1.3 /CMM (0.8-4.8); LYMPHOCYTES % (AUTO) 29.7 % (20.0-44.0); MEAN CORPUSCULAR HGB CONC 33 g/dl (31.0-36.0); MEAN CORPUSCULAR VOLUME 101 fL (80-96); MONOCYTES # (AUTO) 0.3 /CMM (0.1-1.30); MONOCYTES % (AUTO) 5.9 % (2.0-12.0); NEUTROPHILS # (AUTO) 2.6 /CMM (1.8-8.9); NEUTROPHILS % (AUTO) 60.7 % (43.0-81.0); PLATELET COUNT (AUTO) 112 /CMM (150-450); RED BLOOD CELL COUNT(AUTO) 4.74 MIL/uL (4.5-6.0); WHITE BLOOD COUNT (AUTO) 4.3 K/uL (4.3-11.0)
[2019-03-22 07:06] LABS: CALCIUM, SERUM 9.3 mg/dL (8.5-10.1); CREATININE 0.9 mg/dL (0.6-1.3); MAGNESIUM 1.6 mg/dL (1.8-2.4); PHOSPHORUS 2.2 mg/dL (2.5-4.9); POTASSIUM 3.5 mmol/L (3.5-5.1)
--- NOTE | 2019-03-22 07:30 | NUR ---
RN MS NOTES PT IN BED, AWAKE, ALERT AND ORIENTED, DENIES PAIN, NOT IN DISTRESS, ABLE TO WALK TO THE BATHROOM WITH STEADY GAIT, EATING BREAKFAST, CALL LIGHT WITHIN REACH, NEEDS ATTENDED.
[2019-03-22 08:00] VITALS: BP 129/85
[2019-03-22] MEDS: MULTIVITAMINS,THERAGRAN 1 UDTAB TABLET PO SCH (08:41)
[2019-03-22] MEDS: THIAMINE HCL 100 MG TABLET PO SCH (08:41)
[2019-03-22] MEDS: CHLORDIAZEPOXIDE HCL 25 MG CAPSULE PO SCH (08:41)
[2019-03-22 08:42] VITALS: BP 129/85
[2019-03-22] MEDS: FOLIC ACID 1 MG TABLET PO SCH (08:42)
[2019-03-22] MEDS: ATENOLOL 50 MG TABLET PO SCH (08:42)
[2019-03-22] MEDS: Magnesium 1GM/D5W 100ML PREMIX 100 ML IV SCH ×2 (08:42→10:59)
[2019-03-22] MEDS ORDERED: Magnesium 1GM/D5W 100ML PREMIX 100 ML IV SCH (11:00)
[2019-03-22] MEDS ORDERED: K PHOS NEUTRAL 250 MG TABLET PO ONE (12:00)
[2019-03-22] MEDS ORDERED: Lorazepam PO (12:25)
[2019-03-22] MEDS ORDERED: Thiamine HCL PO (12:25)
[2019-03-22] MEDS ORDERED: MULT-24 PO (12:25)
[2019-03-22] MEDS ORDERED: Folic Acid PO (12:25)
--- NOTE | 2019-03-22 12:31 | NUR ---
RN MS NOTES PT IN BED, AWAKE, ALERT AND ORIENTED, SEEN BY DR. IRIZARRY, DISCHARGE ORDER GIVEN, DISCHARGE AND MEDICATION INSTRUCTIONS PROVIDED TO PT, VERBALIZED UNDERSTANDING, SEEN BY HOUSEKEEPING CLEANER THO, DISCHARGE PLAN DISCUSSED WITH PT, VERBALIZED UNDERSTANDING, BELONGINGS ACCOUNTED FOR, DUE MEDS GIVEN ORDERED, AWAITING SILO PAINTER BY [facility].
--- NOTE | 2019-03-22 13:55 | NUR ---
RN MS NOTES PT AWAKE, ABLE TO AMBULATE TO THE BATHROOM, SON TESSA VISITED, INFORMED OF DISCHARGE PLAN, VERBALIZED UNDERSTANDING, PT PICKED UP BY TRANSPORTATION SERVICE FROM [facility], ASSISTED PT TO HOSPITAL LOBBY VIA WHEELCHAIR, LEFT WITH ALL BELONGINGS IN STABLE CONDITION.
== END 2019-03-22 13:45 | DRG 896 ==
LOC: ER 01:14 → TELE 13:37 → MED 14:03
PROVIDERS: ADMIT Internal Medicine; ATTEND Internal Medicine
DX: F10.239 Alcohol dependence with withdrawal, unspecified (principal); G93.41 Metabolic encephalopathy; N17.0 Acute kidney failure with tubular necrosis; E87.2 Acidosis; F17.210 Nicotine dependence, cigarettes, uncomplicated; I10 Essential (primary) hypertension; E87.6 Hypokalemia; E83.42 Hypomagnesemia; E78.5 Hyperlipidemia, unspecified; R27.0 Ataxia, unspecified; Y90.9 Presence of alcohol in blood, level not specified
CPT/HCPCS: 36415; 71045-TC; 80048-TC; 80076-TC; 83690-TC; 83735-TC; 84100-TC; 85025-TC; 87081-TC; 97116-TC; 97530-TC; G0378; J3475; J3490; J7030; J7060; Q0162

== ENCOUNTER 2020-06-30 16:23 | Inpatient (IN) | payer MEDICARE, BC ==
[~2020-06-30] VITALS: Ht 175.3 cm; Wt 99.8 kg
[~2020-06-30 16:23] MED LIST changes: -FLUT16SP16 NS; -FOLI1TAB16 PO; +Folic Acid PO; -LORA-259 PO; +Lorazepam PO; -MAGN400T26 PO; +MULT-24 PO; -THIA100T74 PO; +Thiamine HCL PO
--- NOTE | 2020-06-30 16:23 | NUR ---
PT BIBRA FROM HOME C/O FAILURE TO THRIVE. PER EMS REPORT FRIEND CALLED 911 BECAUSE THE PT IS UNABLE TO TAKE CARE OF HIM SELF. PT IS AAOX4, NOT IN RESPIRATORY DISTRESS, HOOKED TO MAIL WEIGHER, KEPT RESTED AND COMFORTABLE. WILL CONTINUE TO MONITOR.
--- NOTE | 2020-06-30 16:23 | NUR ---
Pt admits to being depressed BUT denies suicidal ideation. O2 RA81% Respirations even/unlabored. MD notified 2L/NC applied
--- NOTE | 2020-06-30 16:33 | NUR ---
AT BEDSIDE FOR EVAL.
--- NOTE | 2020-06-30 16:50 | NUR ---
VANESA JJ AT BEDSIDE FOR BLOOD DRAW.
[2020-06-30 17:03] LABS: BASOPHILS % (AUTO) 0.3 % (0.0-2.0); EOSINOPHILS % (AUTO) 3.3 % (0.0-6.0); HEMATOCRIT 49 % (39-51); HEMOGLOBIN 16.6 g/dL (13.5-17.5); LYMPHOCYTES # (AUTO) 2.1 /CMM (0.8-4.8); MEAN CORPUSCULAR HGB CONC 34 g/dl (31.0-36.0); MEAN CORPUSCULAR VOLUME 99 fL (80-96); MONOCYTES # (AUTO) 0.3 /CMM (0.1-1.30); MONOCYTES % (AUTO) 5.6 % (2.0-12.0); NEUTROPHILS # (AUTO) 3.4 /CMM (1.8-8.9); NEUTROPHILS % (AUTO) 55.8 % (43.0-81.0); PLATELET COUNT (AUTO) 159 /CMM (150-450); RED BLOOD CELL COUNT(AUTO) 4.97 MIL/uL (4.5-6.0); WHITE BLOOD COUNT (AUTO) 6.1 K/uL (4.3-11.0)
[2020-06-30 17:12] LABS: CALCIUM, SERUM 8.3 mg/dL (8.5-10.1); CREATININE 0.6 mg/dL (0.6-1.3); POTASSIUM 3.9 mmol/L (3.5-5.1)
[2020-06-30 17:20] LABS: ALBUMIN 4.1 g/dL (3.4-5.0); BILIRUBIN,DIRECT 0.2 mg/dL (0.0-0.2); BILIRUBIN,TOTAL 0.4 mg/dL (0.2-1.0); TOTAL PROTEIN, SERUM 6.9 g/dL (6.4-8.2)
--- NOTE | 2020-06-30 17:39 | NUR ---
called [facility] for psych eval and left a message
--- NOTE | 2020-06-30 17:44 | NUR ---
received a call from the lab regarding covid result, "negative".
--- NOTE | 2020-06-30 18:49 | NUR ---
OANH, PSYCH PEOPLESOFT HRMS DEVELOPER ETA IN 1HR.
--- NOTE | 2020-06-30 20:24 | NUR ---
VIPIN, DROP HAMMER MECHANIC WERE UPDATED ABOUT THE PT'S STATUS.
--- NOTE | 2020-06-30 20:31 | NUR ---
VIPIN: [phone]
--- NOTE | 2020-06-30 22:27 | NUR ---
Jose Eduardo hayward in [facility] - 06/30/20 at 2228 by SARINA CALLED VARSHA ZARATE, FOR UPDATE.
--- NOTE | 2020-06-30 22:28 | NUR ---
CALLED VARSHA ZARATE, , FOR UPDATE.
--- NOTE | 2020-07-01 03:04 | NUR ---
CALLED OANH MCCLELLAN FROM CRISIS TEAM AND LEFT A VOIVE MESSAGE. AWAITING FOR HER CALL BACK
--- NOTE | 2020-07-01 06:18 | NUR ---
Radha from crisis team at the bedside for eval.
--- NOTE | 2020-07-01 06:38 | NUR ---
rad at bed side
[2020-07-01] MEDS ORDERED: LORAZEPAM 1 MG TABLET ONE (06:39)
[2020-07-01] MEDS ORDERED: LORAZEPAM 1 MG TABLET PO ONE (07:00)
--- NOTE | 2020-07-01 07:11 | NUR ---
Gave report to VY Thomason for GABE.
--- NOTE | 2020-07-01 08:21 | NUR ---
BED 110
--- NOTE | 2020-07-01 08:29 | NUR ---
REPORT GIVEN TO VAMSHI MCCLELLAN FOR GABE.
--- NOTE | 2020-07-01 08:42 | NUR ---
PATIENT TRANSFERRED TO ROOM 110 VIA ACLS PROTOCOL. NO DISTRESS NOTED. NEEDS ATTENDED.
[2020-07-01] MEDS: ATENOLOL 50 MG TABLET PO SCH (09:00)
[2020-07-01] MEDS: ALBUTEROL HALF STRENGTH 1.25 MG/3 ML VIAL.NEB NEB SCH ×5 (10:00→23:45)
[2020-07-01] MEDS: IPRATROPIUM NEB FS 0.5 MG/2.5 ML AMPUL.NEB NEB SCH ×4 (11:47→23:45)
[2020-07-01] MEDS ORDERED: MAG HYDROX/AL HYDROX/SIMETH 30 ML UDC PO PRN (12:00)
[2020-07-01] MEDS ORDERED: LORAZEPAM INJ 2 MG/ML VIAL IV PRN (12:00)
[2020-07-01] MEDS ORDERED: Z GUARD REMEDY 2 OZ OINT TP PRN (12:00)
[2020-07-01] MEDS ORDERED: MAGNESIUM HYDROXIDE 30 ML UDC PO PRN (12:00)
[2020-07-01] MEDS ORDERED: HYDROCODONE/APAP 5/325MG TABLET PO PRN (12:00)
[2020-07-01] MEDS ORDERED: ZOLPIDEM TARTRATE 5 MG TABLET PO PRN (12:00)
[2020-07-01] MEDS ORDERED: ACETAMINOPHEN 325 MG TABLET PO PRN (12:00)
[2020-07-01] MEDS ORDERED: ONDANSETRON HCL/PF 4 MG/2 ML VIAL IVP PRN (12:00)
[2020-07-01 12:08] VITALS: BP 179/117
[2020-07-01 12:18] LABS: ABG BASE EXCESS 7.1 mmol/L; ABG OXYGEN SATURATION 89.6 % (92.0-98.5); ABG PCO2 41.3 mmHg (35.0-45.0); ABG PH 7.494 (7.350-7.450); ABG PO2 52.4 mmHg (75.0-100.0); AaDO2 47.9 mmHg; COHb 1.9 % (0.5-1.5); MetHb 0.3 % (0.0-1.5); O2Hb 87.6 % (94.0-97.0); SITE, ABG Right Radial; VENT MODE, BG ROOM AIR
--- NOTE | 2020-07-01 14:44 | NUR ---
Social Service Consult: director of therapy services consult requested for alcohol use. Patient is a 74-year-old, male. SW met with the patient at his hospital bed in the med-surg unit. Patient is alert and oriented x4. Patient is calm and resting. Per patients chart, patient was brought in by ambulance from home on 07/01/20 for failure to thrive. Patients friend had called 911. Patient stated that he currently lives with his roommate at [address] , [place] [address]; [phone]. SW assessed patients history of substance use and patient stated that he has a history of alcohol use. Patient stated that he has a long history of alcohol abuse and patient stated that he has been drinking more lately as he has been feeling lonely. Patient stated that he has been drinking a fifth of bourbon for a couple of weeks and has been drinking for years. SW asked patient if he has a history of drug use and patient stated that he smokes cigarettes (one pack/day) and has been smoking for years. SW asked patient about his current living arrangement and patient stated that he currently lives with a roommate, Deisy, . Patient stated he is independent with his ADLs and is ambulatory. SW assessed if patient has a source of income and patient stated that he currently receives SSI and some income from [employer]. Patient stated that he has adequate social support from family and his roommate. Patient mentioned that him and his are but he is still in contact with her. Patient is in regular contact with his son, Robbi, ph: [phone] work: [phone]. SW assessed patients history of mental illness and patient denies any history of mental illness and denies any current thoughts of suicide or homicide. SW discussed discharge plans with the patient. Patient stated that he plans to return to his prior living arrangement at home and will be picked up by his roommate or his son. SW offered the patient substance abuse resources and due to patients feelings of loneliness, SW also offered outpatient counseling resources. Patient accepted the resources and stated that he will follow-up independently. PLAN: Patient stated he will be returning to his prior living arrangement. No further SS interventions at this time, however SW will remain available as needed. Substance use resources provided included: [facility] Substance Abuse Self-Helpline (SAS) ; [facility] [address] [id number] ; [facility] [address] [facility] [phone] ; [facility] [address] [facility] [phone] ; [facility] [address] [facility] [address] ; [facility] [address] [facility] [facility] [phone] ; [facility] [place]; [facility] [place]; [facility]; Alcoholics Anonymous -[facility] [address] [facility] [place] [address] (Specializes in in-depth psychotherapy for emotional distress: anxiety, depression, interpersonal conflicts, life transitions, childhood abuse) [facility] [address] [place] [address] (Assist with solving problem marital difficulties, separation & divorce, aging parents, & grief, chronic & terminal illness) [facility] [address] [place] [address] (Deal with loss & grief, anxiety, marital difficulties) [facility] [address] [facility], [address] [place], [place] [id number] (Provide in-home mental services to people who are incapable of leaving their homes) [facility] [address] [facility] [place] [address] Partial Hospitalization Program and Outpatient at [facility] [address] [facility] [place], [place] [id number] [facility] [address] [place] [address] PSYCHIATRIC OUTPATIENT SERVICES [facility] Partial Hospitalization and Intensive Outpatient Program (Managed Care and [place] Only)[address] [facility] [phone] [facility] Partial Hospitalization and Outpatient [id number] [place], [place] [phone] [facility] Partial Hospitalization and Outpatient [id number] [place], [place] [phone] [address] [facility] Mental [facility] [id number] [place], [place] [phone] [facility] Partial Hospitalization and Outpatient [id number] [facility] [address] Font[place], [phone]
[2020-07-01 16:00] VITALS: BP 128/91
[2020-07-01] MEDS: CHLORDIAZEPOXIDE HCL 25 MG CAPSULE PO SCH (16:29)
[2020-07-01] MEDS: methylPREDNISolone SOD SUCC 125 MG/2ML VIAL IV SCH (16:31)
--- NOTE | 2020-07-01 19:29 | NUR ---
PATIENT RECEIVED IN ER AT 1000AM. VITAL SIGNS TAKEN. SKIN ASSESSMENT NOTED. SCALY SKIN NOTED ON BILATERAL UPPER AND LOWER EXTREMITIES, BILATERAL FOOT REDNESS, WITH NON PITTING EDEMA. SAFETY PRECAUTIONS IMPLEMENTED, BED LOCKED IN LOWEST POSITION, SIDE RAILS UP X2, CALL LIGHT WITHIN REACH. WILL ENDORSE CARE TO UPCOMING SHIFT.
[2020-07-01 20:00] VITALS: BP 154/96
[2020-07-02] VITALS: BP 141/70
[2020-07-02] MEDS: IPRATROPIUM NEB FS 0.5 MG/2.5 ML AMPUL.NEB NEB SCH ×6 (03:30→23:16)
[2020-07-02] MEDS: ALBUTEROL HALF STRENGTH 1.25 MG/3 ML VIAL.NEB NEB SCH ×6 (03:30→23:16)
[2020-07-02 04:00] VITALS: BP 141/89
[2020-07-02 07:18] LABS: BASOPHILS % (AUTO) 0.4 % (0.0-2.0); HEMATOCRIT 52 % (39-51); HEMOGLOBIN 17.4 g/dL (13.5-17.5); LYMPHOCYTES # (AUTO) 0.5 /CMM (0.8-4.8); MEAN CORPUSCULAR HGB CONC 34 g/dl (31.0-36.0); MEAN CORPUSCULAR VOLUME 99 fL (80-96); MONOCYTES # (AUTO) 0.6 /CMM (0.1-1.30); MONOCYTES % (AUTO) 4.7 % (2.0-12.0); NEUTROPHILS # (AUTO) 10.7 /CMM (1.8-8.9); NEUTROPHILS % (AUTO) 90.9 % (43.0-81.0); PLATELET COUNT (AUTO) 153 /CMM (150-450); RED BLOOD CELL COUNT(AUTO) 5.21 MIL/uL (4.5-6.0); WHITE BLOOD COUNT (AUTO) 11.8 K/uL (4.3-11.0)
--- NOTE | 2020-07-02 07:30 | NUR ---
RN OPENING NOTES Patient is alert and oriented. Patient is breathing even and unlabored.No c.o pain or discomfort. Right ac 18 gauze saline lock , saline lock,bed is in lowest and locked position. Call light with in reach.Will continue to monitor.
[2020-07-02 07:50] LABS: ALBUMIN 4.1 g/dL (3.4-5.0); BILIRUBIN,DIRECT 0.3 mg/dL (0.0-0.2); BILIRUBIN,TOTAL 0.8 mg/dL (0.2-1.0); CALCIUM, SERUM 9.6 mg/dL (8.5-10.1); CREATININE 0.6 mg/dL (0.6-1.3); MAGNESIUM 2.1 mg/dL (1.8-2.4); PHOSPHORUS 2.9 mg/dL (2.5-4.9); POTASSIUM 3.9 mmol/L (3.5-5.1); TOTAL PROTEIN, SERUM 7.3 g/dL (6.4-8.2)
[2020-07-02 08:00] VITALS: BP 112/75
[2020-07-02] MEDS: PANTOPRAZOLE 40 MG TABLET.DR PO SCH (08:28)
[2020-07-02] MEDS: methylPREDNISolone SOD SUCC 125 MG/2ML VIAL IV SCH ×2 (08:28→17:21)
[2020-07-02] MEDS: CHLORDIAZEPOXIDE HCL 25 MG CAPSULE PO SCH ×2 (08:28→17:21)
[2020-07-02] MEDS: ATENOLOL 50 MG TABLET PO SCH (08:29)
[2020-07-02 10:06] LABS: THYROID STIMULATING HORMONE 0.707 uIU/mL (0.358-3.74)
--- NOTE | 2020-07-02 11:50 | NUR ---
Patient noted with iv site to right ac leaking. No s/s of redness and no c/o pain. Mutliple attempts done for peripheral. Informed MD Johns and received order for MIDLINE. Weaving Loom Operator and Picc line nurse made aware
[2020-07-02 12:00] VITALS: BP 110/75
--- NOTE | 2020-07-02 12:15 | NUR ---
MIDLINE INSERTED TO RIGHT AC 18 GAUZE, FLUSHES WELL.
[2020-07-02 18:00] VITALS: BP 128/75
--- NOTE | 2020-07-02 19:02 | NUR ---
RN CLOSING NOTES Patient is alert and oriented. Patient is breathing even and unlabored.No c.o pain or discomfort. Right upper arm midline 18 gauze , saline lock, patent and flushes well.Patient is on 3 Lpm saturating 97%. Bed is in lowest and locked position. Call light with in reach.Will endorse to next shift for GABE.
--- NOTE | 2020-07-02 19:30 | NUR ---
RN OPENING NOTE RECEIVED PATIENT IN BED RESTING ALERT ORIENTED X4 VERBALLY RESPONSIVE ON 3L OXYGEN VIA NASAL CANNULA,O2:98% AMBULATORY CONTINENT TO BOWEL/BLADDER ,IV SITE IS ON RIGHT UPPER ARM MID LINE INTACT PATENT SAFETY MEASURE IMPLEMENT,CALL LIGHT WITHIN REACH,BED IN LOW POSITION AND LOCKED,CONTINUE TO MONITOR.
[2020-07-02 20:00] VITALS: BP 113/79
--- NOTE | 2020-07-02 20:30 | NUR ---
RN NOTE PATIENT IS ALERT AND ORIENTED, ABLE TO MAKE NEEEDS KNOWN. BREATHING IS EVEN AND UNLABORED. NO SOB NOTED. ON O2 3LPM VIA NASAL CANNULA O2 SAT 95%. RIGHT UPPER ARM MIDLINE PATENT AND FLUSHES WELL. BED LOCKED AND IN LOWEST POSITION. CALL LIGHT WITHIN REACH. PATIENT SITTING COMFORTABLY IN BED.
--- NOTE | 2020-07-02 22:20 | NUR ---
RN NOTE REPORT GIVEN TO RADHA MCCLELLAN FOR CONTINUATION OF CARE
--- NOTE | 2020-07-02 22:20 | NUR ---
Rec'd report from VY Coker for GABE.
[2020-07-03] VITALS: BP 138/82
[2020-07-03] MEDS: ALBUTEROL HALF STRENGTH 1.25 MG/3 ML VIAL.NEB NEB SCH ×6 (03:38→23:29)
[2020-07-03] MEDS: IPRATROPIUM NEB FS 0.5 MG/2.5 ML AMPUL.NEB NEB SCH ×6 (03:38→23:28)
[2020-07-03 04:00] VITALS: BP 165/87
--- NOTE | 2020-07-03 07:30 | NUR ---
RN CLOSING NOTES Patient is alert and oriented with forgetfulness. Patient is breathing even and unlabored.No c.o pain or discomfort. Right upper arm midline 18 gauze , saline lock, patent and flushes well.Patient is on room air upon endorsement saturating 95%. Bed is in lowest and locked position. Call light with in reach.. Addendum: 07/03/20 at 1902 by MIRIAM BANEGAS RN RN OPENING NOTES
[2020-07-03 08:00] VITALS: BP 144/96
[2020-07-03] MEDS: methylPREDNISolone SOD SUCC 125 MG/2ML VIAL IV SCH (08:53)
[2020-07-03] MEDS: CHLORDIAZEPOXIDE HCL 25 MG CAPSULE PO SCH ×2 (08:54→17:36)
[2020-07-03] MEDS: PANTOPRAZOLE 40 MG TABLET.DR PO SCH (08:54)
[2020-07-03] MEDS: ATENOLOL 50 MG TABLET PO SCH (08:54)
[2020-07-03] MEDS ORDERED: methylPREDNISolone SOD SUCC 125 MG/2ML VIAL IV SCH (09:30)
[2020-07-03 12:00] VITALS: BP 144/81
[2020-07-03 16:00] VITALS: BP 138/82
--- NOTE | 2020-07-03 19:02 | NUR ---
RN CLOSING NOTES Patient is alert and oriented with forgetfulness. Patient is breathing even and unlabored.No c.o pain or discomfort. Right upper arm midline 18 gauze , saline lock, patent and flushes well.Patient is on room air upon endorsement saturating 94%. Bed is in lowest and locked position. Call light with in reach.will endorse to next shift for GABE
--- NOTE | 2020-07-03 19:38 | NUR ---
MS1 RN NOTES RECEIVED ON BED,ON HIGH FOWLERS POSITION,BREATHING TREATMENT IN PROGRESS,RT AT BEDSIDE.WITH JENNY MIDLINE FOR MEDS,CAME IN FOR ETOH INTOXICATION,WILL MONITOR FOR ALCOHOL WITHDRAWAL.CALL LIGHT IN REACH,NEEDS ANTICIPATED.
[2020-07-03 20:00] VITALS: BP 135/78
[2020-07-04] MEDS: IPRATROPIUM NEB FS 0.5 MG/2.5 ML AMPUL.NEB NEB SCH ×4 (03:30→16:07)
[2020-07-04] MEDS: ALBUTEROL HALF STRENGTH 1.25 MG/3 ML VIAL.NEB NEB SCH ×4 (03:30→16:07)
[2020-07-04 04:00] VITALS: BP 141/95
--- NOTE | 2020-07-04 06:16 | NUR ---
MS 1 RN NOTES CALM AND QUIET THRU OUT SHIFT,WELL RESTED,NO ETOH WITHDRAWAL NOTED.IN NO ACUTE DISTRESS.
--- NOTE | 2020-07-04 07:30 | NUR ---
MS MCCLELLAN AM NOTES RECEIVED PT IN BED, ON HIGH FOWLERS POSITION,ON ROOM AIR, NOT IN ANY DISTRESS, NO SOB, WITH BREATHING TREATMENT.DENIES PAIN, JENNY MIDLINE FLUSHES WELL, SITE CLEAR, CDI. CAME IN FOR ETOH INTOXICATION,CARDIAC DIET.AB WITH ASSIST. WILL MONITOR FOR ALCOHOL WITHDRAWAL.CALL LIGHT IN REACH,NEEDS ANTICIPATED.WILL CONT TO MONITOR.
[2020-07-04] MEDS: PANTOPRAZOLE 40 MG TABLET.DR PO SCH (07:55)
[2020-07-04 08:00] VITALS: BP 144/85
[2020-07-04] MEDS: CHLORDIAZEPOXIDE HCL 25 MG CAPSULE PO SCH ×2 (08:25→16:22)
[2020-07-04] MEDS: ATENOLOL 50 MG TABLET PO SCH (08:26)
[2020-07-04] MEDS ORDERED: methylPREDNISolone SOD SUCC 40 MG/ML VIAL IV SCH (09:00)
--- NOTE | 2020-07-04 09:30 | NUR ---
RN NOTES DUE MEDS GIVEN
[2020-07-04] MEDS ORDERED: MULT-754 PO (10:22)
[2020-07-04] MEDS ORDERED: THIA100T88 PO (10:22)
[2020-07-04 16:00] VITALS: BP 140/77
--- NOTE | 2020-07-04 18:35 | NUR ---
RN NOTES ALL NEEDS MET. PATIENT FOR DISCHARGE TO HOME PER MD TODAY. PROVIDED DC INSTRUCTIONS, MED RECON LIST AND HEALTH TEACHINGS. IV ACCESS REMOVED. CATH TIP COMPLETE, NO BLEEDING, DRESSING IN PLACE. PATIENT WILL FOLLOW UP WITH [facility] JULY [facility], 2020 AT 11 AM. ALL NEEDS MET. BELONGINGS CHECKED AND RETURNED. ALL PAPER WORKS SIGNED. WILL BE PICKED UP BY VARSHA ZARATE.
[2020-07-05] MEDS ORDERED: predniSONE 20 MG TABLET PO SCH (09:00)
== END 2020-07-04 19:00 | disposition home or self-care (01) | DRG 896 ==
LOC: ER 16:23 → TELE1 07-01 08:25 → MEDSG1 07-02 08:20
PROVIDERS: ADMIT Student in an Organized Health Care Education/Training Program; ATTEND Nurse Practitioner Acute Care
PROC: 05HB33Z Insertion of Infusion Device into Right Basilic Vein, Percutaneous Approach (ICD-10-PCS; principal; 2020-07-02)
DX: F10.239 Alcohol dependence with withdrawal, unspecified (principal); G92 Toxic encephalopathy; J45.901 Unspecified asthma with (acute) exacerbation; E87.1 Hypo-osmolality and hyponatremia; F10.229 Alcohol dependence with intoxication, unspecified; Y90.8 Blood alcohol level of 240 mg/100 ml or more; I10 Essential (primary) hypertension; Z20.822 Contact with and (suspected) exposure to COVID-19; Z86.79 Personal history of other diseases of the circulatory system; Z82.49 Family history of ischemic heart disease and other diseases of the circulatory system; Z82.3 Family history of stroke; F17.200 Nicotine dependence, unspecified, uncomplicated; E78.5 Hyperlipidemia, unspecified; Z79.899 Other long term (current) drug therapy; Z83.3 Family history of diabetes mellitus
CPT/HCPCS: 36410; 36415; 36600; 71045-TC; 80048-TC; 80061-TC; 80076-TC; 82803-TC; 83735-TC; 84100-TC; 84443-TC; 84484-TC; 85025-TC; 87081-TC; 94762-TC; 94799-TC; C9803; G0378; G0480; J2920; J2930

== ENCOUNTER 2020-07-08 11:11 | Outpatient (CLI) | payer MEDICARE, BC ==
[~2020-07-08 11:11] MED LIST changes: -Folic Acid PO; -Lorazepam PO; -MULT-24 PO; +MULT-754 PO; +THIA100T88 PO; -Thiamine HCL PO
== END 2020-07-08 23:59 | disposition home or self-care (01) ==
LOC: MSC 11:11
PROVIDERS: ATTEND Internal Medicine
DX: Z04.89 Encounter for examination and observation for other specified reasons (principal); K74.60 Unspecified cirrhosis of liver; F10.10 Alcohol abuse, uncomplicated; Z86.79 Personal history of other diseases of the circulatory system; K27.9 Peptic ulcer, site unspecified, unspecified as acute or chronic, without hemorrhage or perforation; J44.9 Chronic obstructive pulmonary disease, unspecified; Z72.0 Tobacco use; Z71.89 Other specified counseling; I10 Essential (primary) hypertension; Z98.890 Other specified postprocedural states; Z83.3 Family history of diabetes mellitus; Z82.3 Family history of stroke; Z82.49 Family history of ischemic heart disease and other diseases of the circulatory system

== ENCOUNTER 2020-07-22 21:37 | Inpatient (IN) | payer MEDICARE, BC ==
[~2020-07-22] VITALS: Ht 175.3 cm; Wt 103.4 kg
--- NOTE | 2020-07-22 21:58 | NUR ---
PT AAOX4. BIBRA C/O HE DRANK MARY LOPEZ. PT WAS PLACED IN BED 11 ON MONITOR AND PULSE OX. NOTICED PT TO BE SAT IN THE HIGH 80'S. PT WAS PLACED ON 5L NC SAT 94%. AWAITING OTHER ORDERS.
--- NOTE | 2020-07-22 23:05 | NUR ---
IV ESTABLISHED, BLOOD WORK COLLECTED, SENT TO LAB.
[2020-07-22 23:07] LABS: BASOPHILS # (AUTO) 0.1 /CMM (0.0-0.2); EOSINOPHILS % (AUTO) 0.9 % (0.0-6.0); HEMATOCRIT 46 % (39-51); HEMOGLOBIN 16.4 g/dL (13.5-17.5); LYMPHOCYTES # (AUTO) 1.3 /CMM (0.8-4.8); LYMPHOCYTES % (AUTO) 15.8 % (20.0-44.0); MEAN CORPUSCULAR HGB CONC 35 g/dl (31.0-36.0); MEAN CORPUSCULAR VOLUME 93 fL (80-96); MONOCYTES # (AUTO) 0.6 /CMM (0.1-1.30); MONOCYTES % (AUTO) 6.6 % (2.0-12.0); NEUTROPHILS # (AUTO) 6.4 /CMM (1.8-8.9); NEUTROPHILS % (AUTO) 75.7 % (43.0-81.0); PLATELET COUNT (AUTO) 274 /CMM (150-450); RED BLOOD CELL COUNT(AUTO) 4.99 MIL/uL (4.5-6.0); WHITE BLOOD COUNT (AUTO) 8.5 K/uL (4.3-11.0)
[2020-07-22 23:27] LABS: CALCIUM, SERUM 8.2 mg/dL (8.5-10.1); CREATININE 0.6 mg/dL (0.6-1.3); POTASSIUM 4.3 mmol/L (3.5-5.1)
--- NOTE | 2020-07-22 23:40 | NUR ---
ABRAM SWABBED, SENT TO LAB,.
--- NOTE | 2020-07-22 23:53 | NUR ---
BENNIE DNP AT BEDSIDE
[2020-07-22] MEDS ORDERED: AZITHROMYCIN 500 MG VIAL ONE (23:55)
[2020-07-23] VITALS (7 sets, daily range): BP systolic 109–156; BP diastolic 57–90
[2020-07-23] MEDS ORDERED: AZITHROMYCIN 500 MG in IV D5W 250 ML IV ONE
[2020-07-23] MEDS ORDERED: CEFTRIAXONE 1GM BAG (ER ONLY) 1 GM/50 ML PIGGYBACK IV ONE
--- NOTE | 2020-07-23 00:21 | NUR ---
TELE BED: 030-6
[2020-07-23] MEDS ORDERED: NITROGLYCERIN 0.4 MG/TAB BOTTLE SL ONE (00:30)
[2020-07-23] MEDS ORDERED: ONDANSETRON HCL/PF 4 MG/2 ML VIAL IVP PRN (00:30)
[2020-07-23] MEDS ORDERED: ACETAMINOPHEN 325 MG TABLET PO PRN (00:30)
[2020-07-23] MEDS ORDERED: MORPHINE SULFATE INJ 2 MG/ML DISP.SYRIN IV PRN (00:30)
[2020-07-23] MEDS ORDERED: LORAZEPAM INJ 2 MG/ML VIAL IV PRN ×2 (00:30→10:00)
[2020-07-23] MEDS ORDERED: MAGNESIUM HYDROXIDE 30 ML UDC PO PRN (00:30)
[2020-07-23] MEDS ORDERED: MAG HYDROX/AL HYDROX/SIMETH 30 ML UDC PO PRN (00:30)
[2020-07-23] MEDS ORDERED: HYDROCODONE/APAP 5/325MG TABLET PO PRN (00:30)
[2020-07-23] MEDS ORDERED: Z GUARD REMEDY 2 OZ OINT TP PRN (00:30)
[2020-07-23] MEDS ORDERED: NITROGLYCERIN 0.4 MG/TAB BOTTLE ONE (00:38)
--- NOTE | 2020-07-23 00:58 | NUR ---
REPORT GIVEN TO TOMMIE MCCLELLAN FOR GABE
--- NOTE | 2020-07-23 01:24 | NUR ---
PT TRANSFERED PER ACLS PROTOCOL
[2020-07-23] MEDS: ENOXAPARIN SODIUM 40 MG/0.4 ML DISP.SYRIN SQ SCH ×2 (01:47→20:53)
--- NOTE | 2020-07-23 04:14 | NUR ---
ENDING NOTES: ADMITTED LAST NIGHT AFTER BEING ADMITTED TURNED TO HIS LEFT SIDE AND WENT TO SLEEP AMBULATED TO THE BATHROOM WITH 1 NURSE STANDBY ASSIST NO SOB WITH AMBULATION 02 2 LITERS SATS 97%
--- NOTE | 2020-07-23 07:36 | NUR ---
EVENT PRODUCER NOTES PT IN BED, ASLEEP, EASY TO AROUSE, NO COMPLAINT AT THIS TIME, RESPIRATIONS NORMAL, CALL LIGHT WITHIN REACH, KEPT WARM AND COMFORTABLE IN BED.
[2020-07-23] MEDS ORDERED: MULT-451 PO (07:51)
[2020-07-23] MEDS: PANTOPRAZOLE 40 MG TABLET.DR PO SCH (08:10)
[2020-07-23] MEDS: CEFEPIME 2 GM in IV D5W 100 ML IV SCH ×2 (08:10→20:06)
--- NOTE | 2020-07-23 08:36 | NUR ---
DEPUTY CHIEF EXECUTIVE NOTES PT SEEN AND EXAMINED BY DR. FAJARDO, PLAN OF CARE DISCUSSED WITH PT, MD AWARE OF ABNORMAL LABS, ORDERS GIVEN.
[2020-07-23 08:47] LABS: CALCIUM, SERUM 7.7 mg/dL (8.5-10.1); CARBON DIOXIDE 24 mmol/L (21-32); CHLORIDE 84 mmol/L (98-107); CREATININE 0.5 mg/dL (0.6-1.3); GLUCOSE 82 mg/dL (74-106); MAGNESIUM 1.6 mg/dL (1.8-2.4); PHOSPHORUS 2.3 mg/dL (2.5-4.9); POTASSIUM 4.5 mmol/L (3.5-5.1); SODIUM SERUM 121 mmol/L (136-145); UREA NITROGEN, BLOOD 7 mg/dL (7-18)
[2020-07-23] MEDS ORDERED: CEFEPIME 1 GM in IV D5W 50 ML IV SCH (09:00)
[2020-07-23 09:12] LABS: THYROID STIMULATING HORMONE 0.964 uIU/mL (0.358-3.74); URIC ACID 3.9 mg/dL (2.6-7.2)
[2020-07-23] MEDS ORDERED: FUROSEMIDE 20 MG/2 ML VIAL IV ONE (10:30)
[2020-07-23] MEDS ORDERED: Magnesium 1GM/D5W 100ML PREMIX 100 ML IV SCH (12:00)
[2020-07-23] MEDS ORDERED: Magnesium 1GM/D5W 100ML PREMIX PIGGYBACK IV ONE (12:00)
[2020-07-23] MEDS ORDERED: NEUTRA PHOS 1 POWD.PACKET PO ONE (12:00)
[2020-07-23] MEDS: CHLORDIAZEPOXIDE HCL 25 MG CAPSULE PO SCH ×2 (12:32→17:15)
[2020-07-23] MEDS: FOLIC ACID 1 MG TABLET PO SCH (12:32)
[2020-07-23] MEDS: THIAMINE HCL 100 MG TABLET PO SCH (12:32)
--- NOTE | 2020-07-23 18:20 | NUR ---
HEAD CD REACTOR OPERATOR NOTES PT IN BED, ASLEEP, EASY TO AROUSE, ALERT AND ORIENTED, ABLE TO MAKE NEEDS KNOWN, ASSISTED TO BATHROOM NEEDED, KEPT COMFORTABLE, NEEDS ATTENDED.
--- NOTE | 2020-07-23 19:41 | NUR ---
PIECE GOODS PACKER OPENING NOTE PT IS IN BED WITH EYES CLOSED, EASY TO AROUSE. A/O X4. PT ON 2L O2 VIA NC, TOLERATING WELL. NO SOB OR RESPIRATORY DISTRESS NOTED. PT IS ON EXTERNAL CREDIT UNION TELLER READING SR 84. NO C/O PAIN AT THIS TIME. IV ACCESS IN LEFT HAND #22, SALINE LOCKED. IV IS INTACT, PATENT, AND FLUSHING WELL. SAFETY MEASURES MAINTAINED AT ALL TIMES. BED IN LOWEST LOCKED POSITION, HOB ELEVATED, SIDE RAILS UP X2. CALL LIGHT AND TABLE WITHIN REACH. WILL CONTINUE WITH PLAN OF CARE.
[2020-07-23] MEDS ORDERED: IV Sodium Chloride 3% 500 ML 500 ML IV ONE (20:00)
--- NOTE | 2020-07-23 20:10 | NUR ---
NOÉ FAJARDO SALES SUPPORT ADMINISTRATOR CALLED TO FOLLOW UP ON ORDER FOR 3% NS 500ML IV AND TO MONITOR FOR SEIZURES DUE TO PT'S LOW NA. READ BACK AND CONFIRMED ORDER AND WILL INFORM HIM OF NEXT LAB RESULTS. WILL CONTINUE TO MONITOR PT.
[2020-07-23 20:49] LABS: CREATININE 0.6 mg/dL (0.6-1.3); POTASSIUM 3.8 mmol/L (3.5-5.1)
[2020-07-23] MEDS: AZITHROMYCIN 500 MG in IV D5W 250 ML IV SCH (23:48)
[2020-07-24] VITALS: BP 155/90
[2020-07-24 00:33] LABS: CALCIUM, SERUM 7.9 mg/dL (8.5-10.1); CREATININE 0.7 mg/dL (0.6-1.3); POTASSIUM 3.7 mmol/L (3.5-5.1)
[2020-07-24 00:46] LABS: CHOLESTEROL 150 mg/dL (<200); HDL CHOLESTEROL 87 mg/dL (40-60); LDL 49 mg/dL (0-99); TRIGLYCERIDES 45 mg/dL (30-150)
[2020-07-24 04:00] VITALS: BP 130/68
--- NOTE | 2020-07-24 06:08 | NUR ---
RACE STARTER CLOSING NOTE PT IS IN BED WITH EYES CLOSED, EASY TO AROUSE. A/O X4. PT ON 2L O2 VIA NC, TOLERATING WELL. NO SOB OR RESPIRATORY DISTRESS NOTED. PT IS ON EXTERNAL SHEET METAL LAYOUT WORKER READING SR WITH PVC AND PAC 94. NO C/O PAIN AT THIS TIME. IV ACCESS IS INTACT, PATENT, AND FLUSHING WELL. ALL NEEDS HAVE BEEN MET. SAFETY MEASURES MAINTAINED AT ALL TIMES. BED IN LOWEST LOCKED POSITION, HOB ELEVATED, SIDE RAILS UP X2. CALL LIGHT AND TABLE WITHIN REACH. WILL ENDORSE TO ONCOMING NURSE FOR GABE.
[2020-07-24 06:29] LABS: BASOPHILS % (AUTO) 0.1 % (0.0-2.0); EOSINOPHILS % (AUTO) 1.5 % (0.0-6.0); HEMATOCRIT 45 % (39-51); LYMPHOCYTES # (AUTO) 0.8 /CMM (0.8-4.8); LYMPHOCYTES % (AUTO) 14.3 % (20.0-44.0); MEAN CORPUSCULAR HGB CONC 35 g/dl (31.0-36.0); MEAN CORPUSCULAR VOLUME 94 fL (80-96); MONOCYTES # (AUTO) 0.4 /CMM (0.1-1.30); NEUTROPHILS # (AUTO) 4.2 /CMM (1.8-8.9); NEUTROPHILS % (AUTO) 76.1 % (43.0-81.0); PLATELET COUNT (AUTO) 193 /CMM (150-450); RED BLOOD CELL COUNT(AUTO) 4.81 MIL/uL (4.5-6.0); WHITE BLOOD COUNT (AUTO) 5.4 K/uL (4.3-11.0)
[2020-07-24 06:43] LABS: CALCIUM, SERUM 8.2 mg/dL (8.5-10.1); CREATININE 0.6 mg/dL (0.6-1.3); MAGNESIUM 1.8 mg/dL (1.8-2.4); PHOSPHORUS 2.6 mg/dL (2.5-4.9)
[2020-07-24 06:58] LABS: POTASSIUM 3.5 mmol/L (3.5-5.1)
[2020-07-24 07:08] LABS: THYROID STIMULATING HORMONE 0.986 uIU/mL (0.358-3.74)
[2020-07-24] MEDS: PANTOPRAZOLE 40 MG TABLET.DR PO SCH (07:41)
[2020-07-24 08:00] VITALS: BP 123/69
--- NOTE | 2020-07-24 08:06 | NUR ---
FURNACE REPAIR MECHANIC OPENING NOTES RECEIVED IN BED, ASLEEP, EASILY AWAKEN BY VERBAL AND TACTILE STIMULI. ON RA TOLERATING WELL, NO SIGNS AND SYMPTOMS OF ACUTE DISTRESS NOTED. WITH SALINE LOCK NOTED ON LEFT HAND, G#22, PATENT AND FLUSHES WELL, NO REDNESS, NO S/SX OF INFILTRATION NOTED. SAFETY PRECAUTIONS OBSERVED AND MAINTAINED: BED ON LOWEST LOCKED POSITION. SIDE RAILS UP X 2. KEPT CALL LIGHT WITHIN EASY REACH. INSTRUCTED PATIENT TO USE CALL LIGHT WHEN ASSISTANCE IS NEEDED. PATIENT VERBALIZED UNDERSTANDING. ON TELE MONITOR, NSR, NOTED WITH PVC'S AND PAC'S WITH HR ON 90'S. WILL CONTINUE TO MONITOR CURRENT STATUS.
[2020-07-24] MEDS: CEFEPIME 2 GM in IV D5W 100 ML IV SCH ×2 (08:57→20:38)
[2020-07-24] MEDS: CHLORDIAZEPOXIDE HCL 25 MG CAPSULE PO SCH ×2 (08:58→16:40)
[2020-07-24] MEDS: THIAMINE HCL 100 MG TABLET PO SCH (08:59)
[2020-07-24] MEDS: MULTIVITAMINS,THERAGRAN 1 UDTAB TABLET PO SCH (08:59)
[2020-07-24] MEDS: FOLIC ACID 1 MG TABLET PO SCH (08:59)
[2020-07-24] MEDS: ATENOLOL 50 MG TABLET PO SCH (09:00)
--- NOTE | 2020-07-24 09:38 | NUR ---
RN NOTES MD ORDERED TO TITRATE OXYGEN. CHECKED O2 SATURATION ON ROOM AIR, REDOYU09%, O2 VIA NC RESUMED AT 2LPM, O2 SATURATION RECHECKED, RESULT 95%.
[2020-07-24] MEDS: DEXAMETHASONE 4 MG TABLET PO SCH (13:39)
[2020-07-24 16:00] VITALS: BP 116/80
[2020-07-24 16:31] LABS: CREATININE 0.6 mg/dL (0.6-1.3)
--- NOTE | 2020-07-24 18:33 | NUR ---
RN NOTES NA RESULT OF 127 RELAYED TO NOÉ FAJARDO, ACKNOWLEDGED WITH NO NEW ORDER MADE.
--- NOTE | 2020-07-24 18:37 | NUR ---
MS RN CLOSING NOTES PATIENT IN BED, ASLEEP, EASILY AWAKEN BY VERBAL AND TACTILE STIMULI. ON O2 VIA NASAL CANNULA AT 2LPM SATURATING WELL AT 96%, NO SIGNS AND SYMPTOMS OF ACUTE DISTRESS NOTED, NO SOB NOTED. WITH SALINE LOCK NOTED ON LEFT HAND, G#22, PATENT AND FLUSHES WELL, NO REDNESS, NO S/SX OF INFILTRATION NOTED. SAFETY PRECAUTIONS OBSERVED AND MAINTAINED: BED ON LOWEST LOCKED POSITION. SIDE RAILS UP X 2. KEPT CALL LIGHT WITHIN EASY REACH. NO COMPLAINTS AND/OR S/SX OF PAIN NOTED AT THIS TIME. ENDORSED TO LIFEGUARD NURSE FOR CONTINUITY OF CARE.
--- NOTE | 2020-07-24 19:30 | NUR ---
RN OPENING NOTES Patient was seen sleeping in his bed. Patient is A/Ox4. Patient is on oxygen via nasal canula at 2 liters/minute and with no respiratory distress noted. Patient has a saline lock on his left hand G#22 which is intact and patent. Patient has no signs and symptoms of acute distress at this time. Safety precautions in place: Bed locked, bed alarm on, side rails up x3, and call light within easy reach of the patient. Will continue to monitor the patient.
[2020-07-24 20:00] VITALS: BP 123/86
[2020-07-24] MEDS: ENOXAPARIN SODIUM 40 MG/0.4 ML DISP.SYRIN SQ SCH (20:40)
[2020-07-24] MEDS: AZITHROMYCIN 500 MG in IV D5W 250 ML IV SCH (23:08)
[2020-07-25 06:55] LABS: BASOPHILS % (AUTO) 0.1 % (0.0-2.0); HEMATOCRIT 48 % (39-51); HEMOGLOBIN 16.7 g/dL (13.5-17.5); LYMPHOCYTES # (AUTO) 0.5 /CMM (0.8-4.8); LYMPHOCYTES % (AUTO) 5.4 % (20.0-44.0); MEAN CORPUSCULAR HGB CONC 35 g/dl (31.0-36.0); MEAN CORPUSCULAR VOLUME 96 fL (80-96); MONOCYTES # (AUTO) 0.2 /CMM (0.1-1.30); MONOCYTES % (AUTO) 2.3 % (2.0-12.0); NEUTROPHILS % (AUTO) 92.2 % (43.0-81.0); PLATELET COUNT (AUTO) 223 /CMM (150-450); RED BLOOD CELL COUNT(AUTO) 4.99 MIL/uL (4.5-6.0); WHITE BLOOD COUNT (AUTO) 8.6 K/uL (4.3-11.0)
--- NOTE | 2020-07-25 07:00 | NUR ---
RN CLOSING NOTES Patient was seen sleeping in his bed. Patient is A/Ox4. Patient is on oxygen via nasal canula at 2 liters/minute and with no respiratory distress noted. Patient has a saline lock on his left hand G#22, which is intact and patent. Patient has no signs and symptoms of acute distress at this time. Safety precautions in place: Bed locked, bed alarm on, side rails up x3, and call light within easy reach of the patient. Will endorse care to day shift nurse.
--- NOTE | 2020-07-25 07:28 | NUR ---
MS RN OPENING NOTES RECEIVED IN BED, ASLEEP, EASILY AWAKEN BY VERBAL AND TACTILE STIMULI. WITH O2 VIA NASAL CANNULA AT 2LPM SATURATING WELL AT 96%, NO SIGNS AND SYMPTOMS OF ACUTE DISTRESS NOTED. NO SOB NOTED. WITH SALINE LOCK NOTED ON LEFT HAND, G#22, PATENT AND FLUSHES WELL, NO REDNESS, NO S/SX OF INFILTRATION NOTED. SAFETY PRECAUTIONS OBSERVED AND MAINTAINED: BED ON LOWEST LOCKED POSITION. SIDE RAILS UP X 2. KEPT CALL LIGHT WITHIN EASY REACH. INSTRUCTED PATIENT TO USE CALL LIGHT WHEN ASSISTANCE IS NEEDED. PATIENT VERBALIZED UNDERSTANDING. WILL CONTINUE TO MONITOR CURRENT STATUS.
[2020-07-25 07:30] LABS: CALCIUM, SERUM 9.2 mg/dL (8.5-10.1); CREATININE 0.6 mg/dL (0.6-1.3); POTASSIUM 4.2 mmol/L (3.5-5.1)
[2020-07-25] MEDS: PANTOPRAZOLE 40 MG TABLET.DR PO SCH (07:44)
[2020-07-25 08:00] VITALS: BP 111/76
[2020-07-25] MEDS: MULTIVITAMINS,THERAGRAN 1 UDTAB TABLET PO SCH (08:40)
[2020-07-25] MEDS: THIAMINE HCL 100 MG TABLET PO SCH (08:40)
[2020-07-25] MEDS: CHLORDIAZEPOXIDE HCL 25 MG CAPSULE PO SCH ×2 (08:40→16:28)
[2020-07-25] MEDS: FOLIC ACID 1 MG TABLET PO SCH (08:40)
[2020-07-25] MEDS: DEXAMETHASONE 4 MG TABLET PO SCH (08:41)
[2020-07-25] MEDS: ATENOLOL 50 MG TABLET PO SCH (08:42)
[2020-07-25] MEDS: CEFEPIME 2 GM in IV D5W 100 ML IV SCH (08:45)
[2020-07-25 16:17] VITALS: BP 132/86
--- NOTE | 2020-07-25 18:43 | NUR ---
MS RN CLOSING NOTES PATIENT IN BED, AWAKE, A&O X3. ON O2 VIA NASAL CANNULA AT 2LPM SATURATING WELL AT 95%, NO SIGNS AND SYMPTOMS OF ACUTE DISTRESS NOTED, NO SOB NOTED. WITH SALINE LOCK NOTED ON LEFT HAND, G#22, PATENT AND FLUSHES WELL, NO REDNESS, NO S/SX OF INFILTRATION NOTED. SAFETY PRECAUTIONS OBSERVED AND MAINTAINED DURING THE SHIFT: BED ON LOWEST LOCKED POSITION. SIDE RAILS UP X 2. KEPT CALL LIGHT WITHIN EASY REACH. NO COMPLAINTS AND/OR S/SX OF PAIN NOTED AT THIS TIME. ENDORSED TO ALTERATION SPECIALIST NURSE FOR CONTINUITY OF CARE.
--- NOTE | 2020-07-25 20:22 | NUR ---
RN OPENING NOTES Patient was seen awake sitting on his his bed. Patient is A/Ox4. Patient is on oxygen via nasal canula at 2 liters/minute and with no respiratory distress noted. Patient has a saline lock on his left hand G#22. Patient has no signs and symptoms of acute distress at this time. Safety precautions in place: Bed locked, bed alarm on, side rails up x3, and call light within easy reach of the patient. Will continue to monitor the patient.
[2020-07-25 20:47] VITALS: BP 115/70
[2020-07-25] MEDS: ENOXAPARIN SODIUM 40 MG/0.4 ML DISP.SYRIN SQ SCH (21:20)
--- NOTE | 2020-07-26 06:41 | NUR ---
RN CLOSING NOTES Patient was last seen sleeping on his bed. Patient is A/Ox4. Patient is on oxygen via nasal canula at 2 liters/minute and with no respiratory distress noted. Patient has a saline lock on his left hand G#22. Patient has no signs and symptoms of acute distress at this time. Safety precautions in place: Bed locked, bed alarm on, side rails up x3, and call light within easy reach of the patient. Will endorse care to the day shift nurse.
[2020-07-26 07:06] LABS: CALCIUM, SERUM 9.9 mg/dL (8.5-10.1); CREATININE 0.9 mg/dL (0.6-1.3); POTASSIUM 3.9 mmol/L (3.5-5.1)
[2020-07-26 07:10] LABS: BASOPHILS % (AUTO) 0.3 % (0.0-2.0); EOSINOPHILS % (AUTO) 0.1 % (0.0-6.0); HEMATOCRIT 45 % (39-51); HEMOGLOBIN 15.3 g/dL (13.5-17.5); LYMPHOCYTES % (AUTO) 7.1 % (20.0-44.0); MEAN CORPUSCULAR HGB CONC 34 g/dl (31.0-36.0); MEAN CORPUSCULAR VOLUME 97 fL (80-96); MONOCYTES % (AUTO) 7.1 % (2.0-12.0); NEUTROPHILS # (AUTO) 12.2 /CMM (1.8-8.9); NEUTROPHILS % (AUTO) 85.4 % (43.0-81.0); PLATELET COUNT (AUTO) 217 /CMM (150-450); RED BLOOD CELL COUNT(AUTO) 4.66 MIL/uL (4.5-6.0); WHITE BLOOD COUNT (AUTO) 14.3 K/uL (4.3-11.0)
--- NOTE | 2020-07-26 07:55 | NUR ---
MS RN OPENING NOTE PATIENT IS IN BED RESTING, PATIENT IS IN NO ACUTE DISTRESS. PATIENT IS ON 2L OXYGEN ON NC, NO SOB NOTED. SAFETY PRECAUTIONS ARE ON, BED IS LOCKED, IN THE LOWEST POSITION WITH SIDE RAILS UP. WILL CONTINUE TO MONITOR CLOSELY.
[2020-07-26 08:00] VITALS: BP 109/74
[2020-07-26] MEDS: ATENOLOL 50 MG TABLET PO SCH (09:29)
[2020-07-26] MEDS: MULTIVITAMINS,THERAGRAN 1 UDTAB TABLET PO SCH (09:29)
[2020-07-26] MEDS: CHLORDIAZEPOXIDE HCL 25 MG CAPSULE PO SCH ×2 (09:29→17:12)
[2020-07-26] MEDS: THIAMINE HCL 100 MG TABLET PO SCH (09:29)
[2020-07-26] MEDS: DEXAMETHASONE 4 MG TABLET PO SCH (09:30)
[2020-07-26] MEDS: FOLIC ACID 1 MG TABLET PO SCH (09:30)
[2020-07-26] MEDS: PANTOPRAZOLE 40 MG TABLET.DR PO SCH (09:30)
[2020-07-26 16:04] VITALS: BP 130/67
--- NOTE | 2020-07-26 18:44 | NUR ---
MS RN CLOSING NOTE PATIENT IS IN BED RESTING, PATIENT IS IN NO ACUTE DISTRESS. PATIENT IS ON 2L OXYGEN ON NC, NO SOB NOTED. PATIENT IS AMBULATORY. SAFETY PRECAUTIONS ARE ON, BED IS LOCKED, IN THE LOWEST POSITION WITH SIDE RAILS UP. ENDORSE PATIENT TO VENEER TRIMMER NURSE FOR GABE.
--- NOTE | 2020-07-26 19:41 | NUR ---
MS VY OPENING NOTES PATIENT A/OX4; ABLE TO MAKE NEEDS KNOWN. TOLERATING ROOM AIR WELL WITH NO SOB. L HAND #22G S/L; PATENT AND INTACT. DENIES PAIN OR DISCOMFORT AT THIS TIME. SAFETY MEASURES IN PLACE: BED IN LOWEST LOCKED POSITION, SIDE RAILS UPX2, CALL LIGHT WITHIN EASY REACH. PATIENT IN STABLE CONDITION, WILL CONTINUE PLAN OF CARE. Addendum: 07/26/20 at 2100 by DOMINIK MOORE RN CORRECTION: PATIENT ON O2 2LPM VIA N/C TOLERATING AT POX 94%
[2020-07-26 20:00] VITALS: BP 134/74
[2020-07-26] MEDS: ENOXAPARIN SODIUM 40 MG/0.4 ML DISP.SYRIN SQ SCH (21:59)
[2020-07-27] VITALS: BP 129/64
[2020-07-27 06:08] LABS: CALCIUM, SERUM 9.1 mg/dL (8.5-10.1); CREATININE 0.8 mg/dL (0.6-1.3); MAGNESIUM 1.8 mg/dL (1.8-2.4); POTASSIUM 4.1 mmol/L (3.5-5.1)
--- NOTE | 2020-07-27 06:21 | NUR ---
MS RN CLOSING NOTES PATIENT A/OX4; ABLE TO MAKE NEEDS KNOWN. ON O2 2LPM VIA N/C; TOLERATING WELL WITH NO SOB; O2SAT AT 95%. L HAND #22G S/L; PATENT AND INTACT. DENIES PAIN OR DISCOMFORT AT THIS TIME. SAFETY MEASURES IN PLACE: BED IN LOWEST LOCKED POSITION, SIDE RAILS UPX2, CALL LIGHT WITHIN EASY REACH. PATIENT IN STABLE CONDITION, WILL ENDORSE PLAN OF CARE TO ONCOMING MORNING RN.
--- NOTE | 2020-07-27 07:20 | NUR ---
ms rn received on bed, awake,alert,oriented x4,not in any form of distress,respirations even and unlabored,no sob noted, lungs have rales bilaterally, denies pain at this time,will monitor patient.
[2020-07-27 07:50] LABS: BASOPHILS % (AUTO) 0.2 % (0.0-2.0); EOSINOPHILS % (AUTO) 0.1 % (0.0-6.0); HEMATOCRIT 46 % (39-51); HEMOGLOBIN 15.5 g/dL (13.5-17.5); LYMPHOCYTES # (AUTO) 1.1 /CMM (0.8-4.8); LYMPHOCYTES % (AUTO) 10.7 % (20.0-44.0); MEAN CORPUSCULAR HGB CONC 34 g/dl (31.0-36.0); MEAN CORPUSCULAR VOLUME 98 fL (80-96); MONOCYTES # (AUTO) 0.5 /CMM (0.1-1.30); MONOCYTES % (AUTO) 4.9 % (2.0-12.0); NEUTROPHILS % (AUTO) 84.1 % (43.0-81.0); PLATELET COUNT (AUTO) 197 /CMM (150-450); RED BLOOD CELL COUNT(AUTO) 4.65 MIL/uL (4.5-6.0); WHITE BLOOD COUNT (AUTO) 10.7 K/uL (4.3-11.0)
[2020-07-27 08:00] VITALS: BP 100/54
[2020-07-27] MEDS: FOLIC ACID 1 MG TABLET PO SCH (08:18)
[2020-07-27] MEDS: PANTOPRAZOLE 40 MG TABLET.DR PO SCH (08:18)
[2020-07-27] MEDS: CHLORDIAZEPOXIDE HCL 25 MG CAPSULE PO SCH ×2 (08:18→17:58)
[2020-07-27] MEDS: MULTIVITAMINS,THERAGRAN 1 UDTAB TABLET PO SCH (08:18)
[2020-07-27] MEDS: THIAMINE HCL 100 MG TABLET PO SCH (08:19)
[2020-07-27] MEDS: DEXAMETHASONE 4 MG TABLET PO SCH (08:19)
--- NOTE | 2020-07-27 09:30 | NUR ---
ms baez breakfast served,due meds given, tolerated well.
--- NOTE | 2020-07-27 09:40 | NUR ---
ms rn was seen by juan c gupta/ orders made and carried out.
[2020-07-27] MEDS: ATENOLOL 50 MG TABLET PO SCH (10:16)
--- NOTE | 2020-07-27 11:30 | NUR ---
ms sasha corea called,patient will be d/c to [facility] today at 5pm. Addendum: 07/27/20 at 1806 by FARAZ CAZARES RN will be dc to [facility] today.
[2020-07-27 16:00] VITALS: BP 123/69
--- NOTE | 2020-07-27 16:00 | NUR ---
ms rn ready to go to [place], waiting for transportation,report given to sasha Hull.
--- NOTE | 2020-07-27 18:00 | NUR ---
ms rn dinner served,transferred to [place],all needs attended.
== END 2020-07-27 18:00 | DRG 640 ==
LOC: ER 21:39 → TELE 07-23 00:30 → MED 07-24 09:12
PROVIDERS: ADMIT Nurse Practitioner Acute Care; ATTEND Nurse Practitioner Family
DX: E87.1 Hypo-osmolality and hyponatremia (principal); J96.01 Acute respiratory failure with hypoxia; E27.40 Unspecified adrenocortical insufficiency; I50.32 Chronic diastolic (congestive) heart failure; J44.9 Chronic obstructive pulmonary disease, unspecified; I25.2 Old myocardial infarction; I25.10 Atherosclerotic heart disease of native coronary artery without angina pectoris; E78.5 Hyperlipidemia, unspecified; E83.39 Other disorders of phosphorus metabolism; E83.42 Hypomagnesemia; F32.9 Major depressive disorder, single episode, unspecified; I11.0 Hypertensive heart disease with heart failure; K74.60 Unspecified cirrhosis of liver; Z82.3 Family history of stroke; Z82.49 Family history of ischemic heart disease and other diseases of the circulatory system; Z83.3 Family history of diabetes mellitus; Z86.79 Personal history of other diseases of the circulatory system; Z90.49 Acquired absence of other specified parts of digestive tract; K27.9 Peptic ulcer, site unspecified, unspecified as acute or chronic, without hemorrhage or perforation; F17.210 Nicotine dependence, cigarettes, uncomplicated; E66.9 Obesity, unspecified; Z68.33 Body mass index [BMI] 33.0-33.9, adult; R53.1 Weakness; F10.10 Alcohol abuse, uncomplicated; Y90.9 Presence of alcohol in blood, level not specified; Z20.822 Contact with and (suspected) exposure to COVID-19
CPT/HCPCS: 36415; 71045-TC; 76700-TC; 80048-TC; 80061-TC; 82533; 82962-TC; 83735-TC; 83880; 84100-TC; 84295-TC; 84300-TC; 84443-TC; 84478-TC; 84484-TC; 84550-TC; 85025-TC; 87081-TC; 93307-TC; 97112-TC; 97116-TC; 97530-TC; C9803; G0378; J0456; J0692; J0696; J1650; J1940; J3475; J3490; J7050; J7060; J8540

== ENCOUNTER 2022-07-07 11:52 | Inpatient (IN) | payer MEDICARE, BC ==
[~2022-07-07] VITALS: Ht 175.3 cm; Wt 97.5 kg
[~2022-07-07 11:52] MED LIST changes: +MULT-451 PO; -MULT-754 PO; -THIA100T88 PO
--- NOTE | 2022-07-07 11:55 | NUR ---
PT PUT ON BED CHANGED INOT GOWN. PUT ON BEDSIDE MONITOR. MADE COMFROTABLE. WAITING MD ORDERS
[2022-07-07] MEDS ORDERED: IPRATROPIUM NEB FS 0.5 MG/2.5 ML AMPUL.NEB NEB ONE (12:30)
[2022-07-07] MEDS ORDERED: ALBUTEROL FS 2.5 MG/3 ML VIAL.NEB CONTNEB ONE (12:30)
[2022-07-07] MEDS ORDERED: methylPREDNISolone SOD SUCC 125 MG/2ML VIAL IV ONE (12:30)
--- NOTE | 2022-07-07 12:33 | NUR ---
IV ACCESS INSERTED RT AC 20G BLD EXTRACTED AND SENT TO LAB. PUT ON O2 @4L
[2022-07-07] MEDS ORDERED: methylPREDNISolone SOD SUCC 125 MG/2ML VIAL ONE (12:38)
[2022-07-07 12:50] LABS: ABG BASE EXCESS 4.1 mmol/L; ABG PCO2 34.8 mmHg (35.0-45.0); ABG PH 7.504 (7.350-7.450); ABG PO2 66.8 mmHg (75.0-100.0); COHb 3.7 % (0.5-1.5); MetHb 0.4 % (0.0-1.5); O2Hb 90.2 % (94.0-97.0); SITE, ABG Left Radial; VENT MODE, BG 3LPM NC
[2022-07-07] MEDS ORDERED: ALBUTEROL FS 2.5 MG/3 ML VIAL.NEB ONE (12:54)
[2022-07-07] MEDS ORDERED: IPRATROPIUM NEB FS 0.5 MG/2.5 ML AMPUL.NEB ONE (12:54)
--- NOTE | 2022-07-07 12:55 | NUR ---
RT AT BEDSIDE
[2022-07-07 13:39] LABS: CALCIUM, SERUM 9.3 mg/dL (8.5-10.1); CARBON DIOXIDE 26 mmol/L (21-32); CHLORIDE 97 mmol/L (98-107); CREATININE 0.8 mg/dL (0.6-1.3); GLUCOSE 93 mg/dL (74-106); POTASSIUM 3.9 mmol/L (3.5-5.1); SODIUM SERUM 137 mmol/L (136-145); UREA NITROGEN, BLOOD 14 mg/dL (7-18)
[2022-07-07 13:45] LABS: ALANINE AMINOTRANSFERASE 31 U/L (12-78); ALBUMIN 4.2 g/dL (3.4-5.0); ALKALINE PHOSPHATASE 88 U/L (46-116); ASPARTATE AMINOTRANSFERASE 33 U/L (15-37); BILIRUBIN,DIRECT 0.3 mg/dL (0.0-0.2); BILIRUBIN,TOTAL 0.8 mg/dL (0.2-1.0); TOTAL PROTEIN, SERUM 6.9 g/dL (6.4-8.2)
--- NOTE | 2022-07-07 13:49 | NUR ---
covid swab done and sent to lab
--- NOTE | 2022-07-07 13:53 | NUR ---
CALLED NURSING SUP REGARDING PT BED
[2022-07-07] MEDS ORDERED: IV NS 0.9% 1,000 ML BAG IV ONE (14:00)
[2022-07-07] MEDS ORDERED: AZITHROMYCIN 500 MG in IV D5W 250 ML IV ONE (14:00)
[2022-07-07] MEDS ORDERED: CEFTRIAXONE 1GM BAG (ER ONLY) 50 ML IV ONE ×3 (14:00→14:13)
[2022-07-07 14:09] LABS: BASOPHILS # (AUTO) 0.1 K/uL (0.0-0.2); BASOPHILS % (AUTO) 0.8 % (0.0-2.0); EOSINOPHILS % (AUTO) 0.3 % (0.0-6.0); HEMATOCRIT 52 % (39-51); HEMOGLOBIN 17.6 g/dL (13.5-17.5); LYMPHOCYTES # (AUTO) 1.5 K/uL (0.8-4.8); LYMPHOCYTES % (AUTO) 19.8 % (20.0-44.0); MEAN CORPUSCULAR HGB CONC 34 g/dl (31.0-36.0); MEAN CORPUSCULAR VOLUME 94 fL (80-96); MONOCYTES # (AUTO) 0.5 K/uL (0.1-1.30); MONOCYTES % (AUTO) 7.4 % (2.0-12.0); NEUTROPHILS # (AUTO) 5.3 K/uL (1.8-8.9); NEUTROPHILS % (AUTO) 71.7 % (43.0-81.0); PLATELET COUNT (AUTO) 187 K/uL (150-450); RED BLOOD CELL COUNT(AUTO) 5.55 MIL/uL (4.5-6.0); WHITE BLOOD COUNT (AUTO) 7.4 K/uL (4.3-11.0)
[2022-07-07] MEDS ORDERED: IV NS 0.9% 250 ML IV ONE (14:22)
[2022-07-07] MEDS ORDERED: CT SWABBABLE VALVE TRANS SET 1 EA INFUS.SET MC ONE (14:22)
[2022-07-07] MEDS ORDERED: IOHEXOL-350 100 ML VIAL IV ONE (14:22)
[2022-07-07] MEDS ORDERED: MULT-447 PO (15:37)
[2022-07-07] MEDS ORDERED: ATOR40TA PO (15:37)
[2022-07-07] MEDS ORDERED: PANT40TA49 PO (15:37)
[2022-07-07] MEDS ORDERED: THIA100T88 PO (15:37)
[2022-07-07] MEDS ORDERED: IPRA3AMP23 IH (15:37)
--- NOTE | 2022-07-07 16:09 | NUR ---
BED GIVEN 104
--- NOTE | 2022-07-07 16:26 | NUR ---
report given to VY MARTINEZ FOR CONTINUATION OF CARE.
--- NOTE | 2022-07-07 16:33 | NUR ---
AZITHROMAX DONE AT 1625. TOLERATED WELL.
--- NOTE | 2022-07-07 16:42 | NUR ---
PT TRANSFERRED TO TELE FLOOR WITH ACLS PROTOCOLS IN PLACE
--- NOTE | 2022-07-07 16:44 | NUR ---
IVF STOPPED TIME [id number]. WELL TOLERATED
--- NOTE | 2022-07-07 16:45 | NUR ---
PT TRANSFERED TO RM 104
--- NOTE | 2022-07-07 16:50 | NUR ---
HEAVY FORGER NOTES Received pt from ER AOx4. No complaints of pain or discomfort at this time. Pt is currently on 4L NC and tolerating it well. IV access on RAC 20G patent and intact. HOB elevated to pts comfort. Siderails up at all times x3. Call light within reach. Will continue to monitor.
[2022-07-07 17:14] VITALS: BP 156/92
[2022-07-07] MEDS ORDERED: Z GUARD REMEDY 4 OZ OINT TP PRN (17:30)
[2022-07-07] MEDS ORDERED: MAG HYDROX/AL HYDROX/SIMETH 30 ML UDC PO PRN (17:30)
[2022-07-07] MEDS ORDERED: ONDANSETRON HCL/PF 4 MG/2 ML VIAL IVP PRN (17:30)
[2022-07-07] MEDS ORDERED: IV NS 0.9% 1,000 ML IV ONE ×2 (17:30→20:30)
[2022-07-07] MEDS ORDERED: IV NS 0.9% 1,000 ML IV PRN (17:30)
[2022-07-07] MEDS ORDERED: MAGNESIUM HYDROXIDE 30 ML UDC PO PRN (17:30)
[2022-07-07] MEDS: ATORVASTATIN 40 MG TABLET PO SCH (18:37)
[2022-07-07] MEDS: ENOXAPARIN SODIUM 40 MG/0.4 ML DISP.SYRIN SQ SCH (18:38)
--- NOTE | 2022-07-07 18:51 | NUR ---
SR. VENDOR MANAGEMENT ASSOCIATE CLOSING NOTES All due meds and tx given as ordered. Pt tolerated everything well. All needs attended to. Call light within reach. Will endorse to oncoming nurse.
--- NOTE | 2022-07-07 19:50 | NUR ---
RN NOTE CRITICAL LAB RESULT LACTIC ACID AT 7.1. TRANSIT SURVEY WORKER MD BILLY NOTIFIED, RESULT TRENDING UP FROM 6.7 TO 7.1 AND PT WAS INFUSED WITH 1L NS IN AM. MD ORDERED TO ADMINISTER ANOTHER BOLUS OF 1L NS ONCE AND FOLLOW WITH NS AT 75 ML/HR CONTINUOUS. ORDER TAKEN AND CARRIED OUT WILL CONT TO MONITOR.
[2022-07-07 20:00] VITALS: BP 124/100
[2022-07-07] MEDS: ALBUTEROL FS 2.5 MG/0.5 ML VIAL.NEB NEB SCH (20:27)
[2022-07-07] MEDS: IPRATROPIUM NEB FS 0.5 MG/2.5 ML AMPUL.NEB NEB SCH (20:27)
[2022-07-07] MEDS ORDERED: IV NS 0.9% 1,000 ML IV SCH (20:30)
[2022-07-07] MEDS: methylPREDNISolone SOD SUCC 40 MG/ML VIAL IV SCH (21:53)
--- NOTE | 2022-07-07 23:40 | NUR ---
RN NOTE REPORT GIVEN TO MIHIR MCCLELLAN FOR CONTINUITY OF CARE.
--- NOTE | 2022-07-07 23:40 | NUR ---
RN NOTE PATIENT RECEIVED FROM VY MARTINEZ. PT IS AWAKE, A7O X 4. PATIENT ON SUPPLEMENTAL OXYGEN AT 2 LPM, NO SOB. PATIENT NSR ON THE MONITOR, HR 62. RIGHT AC PERIPHERAL IV IS OCCLUDED. NEW PERIPHERAL IV ON THE LEFT THUMB INSERTED, FLUSHED, IS PATENT AND INTACT. THE INFUSION OF NS AT 75 ML/HR WAS RESUMED. SAFETY MEASURES IMPLEMENTED. BED IN LOW POSITION, WHEELS ARE LOCKED, 2 RAILS UP, BELONGINGS AND CALL LIGHT ARE WITHIN REACH. WILL CONTINUE TO MONITOR. Addendum: 07/08/22 at 0344 by MUSHTAQ MEEHAN RN FUEL CELL ENGINEER NOTE PATIENT RECEIVED FROM VY MARTINEZ. PT IS AWAKE, A7O X 4. PATIENT ON SUPPLEMENTAL OXYGEN AT 2 LPM, NO SOB. PATIENT NSR ON THE MONITOR, HR 62. RIGHT AC PERIPHERAL IV IS OCCLUDED. NEW PERIPHERAL IV GAUGE 22 INSERTED IN THE LEFT THUMB, FLUSHED, IS PATENT AND INTACT. THE INFUSION OF NS AT 75 ML/HR WAS RESUMED. OCCLUDED IV REMOVED FROM RIGHT AC. SAFETY MEASURES IMPLEMENTED. BED IN LOW POSITION, WHEELS ARE LOCKED, 2 RAILS UP, BELONGINGS AND CALL LIGHT ARE WITHIN REACH. WILL CONTINUE TO MONITOR.
[2022-07-08] VITALS: BP_SYST 128; BP_SYST 141; BP_DIAS 55; BP_DIAS 80
[2022-07-08] MEDS: ALBUTEROL FS 2.5 MG/0.5 ML VIAL.NEB NEB SCH ×3 (01:42→19:17)
[2022-07-08] MEDS: IPRATROPIUM NEB FS 0.5 MG/2.5 ML AMPUL.NEB NEB SCH ×4 (01:42→19:17)
[2022-07-08 04:00] VITALS: BP 145/74
[2022-07-08] MEDS: methylPREDNISolone SOD SUCC 40 MG/ML VIAL IV SCH ×3 (04:30→20:42)
[2022-07-08 06:21] LABS: HEMATOCRIT 43 % (39-51); HEMOGLOBIN 14.4 g/dL (13.5-17.5); LYMPHOCYTES # (AUTO) 0.4 K/uL (0.8-4.8); LYMPHOCYTES % (AUTO) 7.5 % (20.0-44.0); MEAN CORPUSCULAR HGB CONC 34 g/dl (31.0-36.0); MEAN CORPUSCULAR VOLUME 95 fL (80-96); MONOCYTES # (AUTO) 0.2 K/uL (0.1-1.30); MONOCYTES % (AUTO) 4.2 % (2.0-12.0); NEUTROPHILS # (AUTO) 4.7 K/uL (1.8-8.9); NEUTROPHILS % (AUTO) 88.3 % (43.0-81.0); PLATELET COUNT (AUTO) 140 K/uL (150-450); RED BLOOD CELL COUNT(AUTO) 4.54 MIL/uL (4.5-6.0); WHITE BLOOD COUNT (AUTO) 5.3 K/uL (4.3-11.0)
--- NOTE | 2022-07-08 06:41 | NUR ---
GRADE AND CENTER MARKER NOTE PT IN BED AWAKE. NO DISTRESS OR DISCOMFORT NOTED. DENIES PAIN. IVF NS INFUSING AT 75 ML/HR, NO S/S OF INFILTRATION NOTED. ON TELE SR HR 80. ALL NEEDS ATTENDED. KEPT HIM DRY AND CLEAN. WILL ENDORSE TO DAY SHIFT NURSE FOR CONTINUE TO CARE.
[2022-07-08 06:44] LABS: CHOLESTEROL 119 mg/dL (<200); HDL CHOLESTEROL 100 mg/dL (40-60); LDL 21 mg/dL (0-99); TRIGLYCERIDES 26 mg/dL (30-150)
[2022-07-08 06:46] LABS: CALCIUM, SERUM 8.6 mg/dL (8.5-10.1); CARBON DIOXIDE 29 mmol/L (21-32); CHLORIDE 101 mmol/L (98-107); CREATININE 0.8 mg/dL (0.6-1.3); GLUCOSE 190 mg/dL (74-106); MAGNESIUM 1.8 mg/dL (1.8-2.4); PHOSPHORUS 1.6 mg/dL (2.5-4.9); POTASSIUM 3.3 mmol/L (3.5-5.1); SODIUM SERUM 138 mmol/L (136-145); UREA NITROGEN, BLOOD 12 mg/dL (7-18)
--- NOTE | 2022-07-08 07:30 | NUR ---
COMPOSITION BOARD PRESS OPERATOR OPENING NOTES; RECEIVED PT IN BED, AWAKE, A/O X4. ON RA WITH NO SOB/ACUTE DISTRESS NOTED. DENIES PAIN AT THIS TIME. IV ACCESS AT L THUMB #22 RUNNING NS @ 75 ML/HR. TELE MONITOR READS SR, HR= 93. PT IS AMBULATORY. ALL SAFETY MEASURES IN PLACE, CALL LIGHT, TABLE WITHIN EASY REACH; WILL CONT WITH PLAN OF CARE DURING SHIFT.
[2022-07-08 08:00] VITALS: BP 157/80
[2022-07-08] MEDS: PANTOPRAZOLE 40 MG TABLET.DR PO SCH (08:40)
[2022-07-08] MEDS: ATENOLOL 50 MG TABLET PO SCH (08:41)
[2022-07-08] MEDS: THIAMINE HCL 100 MG TABLET PO SCH (08:41)
[2022-07-08] MEDS: MULTIVIT W/MINERALS 1 TAB TABLET PO SCH (08:41)
[2022-07-08] MEDS ORDERED: MULTIVITS W FE OTHER MIN PO SCH (09:00)
[2022-07-08] MEDS ORDERED: IV NS 0.9% 1,000 ML IV PRN (10:04)
[2022-07-08] MEDS ORDERED: POTASSIUM CHLORIDE 20 MEQ TAB.PRT.SR PO SCH (11:30)
[2022-07-08] MEDS: FOLIC ACID 1 MG TABLET PO SCH (11:48)
[2022-07-08] MEDS: CEFTRIAXONE 1 G in IV D5W 50 ML IV SCH (14:47)
[2022-07-08 16:00] VITALS: BP 142/67
[2022-07-08] MEDS ORDERED: K PHOS NEUTRAL 250 MG TABLET PO ONE (16:00)
[2022-07-08] MEDS: ATORVASTATIN 40 MG TABLET PO SCH (17:08)
[2022-07-08] MEDS: AZITHROMYCIN 500 MG in IV D5W 250 ML IV SCH (17:11)
--- NOTE | 2022-07-08 19:41 | NUR ---
MS RN CLOSING NOTES: PT IN BED, AWAKE, A/O X4. ON 2L OF O2 VIA NC WITH NO SOB/ACUTE DISTRESS NOTED. DENIES PAIN AT THIS TIME. IV ACCESS AT L THUMB #22 IVF CURRENTLY ON PAUSE PER PT REQUEST. PT IS DOWNGRADED TO MS SINCE 1300. PT IS AMBULATORY. ALL DUE MEDS GIVEN, KEPT PT CLEAN, DRY AND COMFORTABLE. ALL SAFETY MEASURES IN PLACE, CALL LIGHT, TABLE WITHIN EASY REACH; ENDORSED TO PM SHIFT.
[2022-07-08 20:00] VITALS: BP 141/68
--- NOTE | 2022-07-08 20:00 | NUR ---
MS RN NOTE PT IN BED AWAKE. C/O PAIN IN LT THUMB IV SITE, NOTED IV SITE INFILTRATED. DC'D THE LINE, SECURED THE SITE WITH 2X2 GAUZE NO BLEEDING NOTED. REINSERTED THE NEW LINE g#22 IN RT HAND BY CHARGE NURSE VIANEY WITH GOOD BACK FLOW OF BLOOD. RESUMED IV ATB ORDERED. NO SS OF INFILTRATION NOTED. NO SOB NOTED. KEPT HIM DRY AND CLEAN. ALL NEEDS ATTENDED. VSS. CONTINUE TO MONITOR HIM.
[2022-07-08] MEDS: ENOXAPARIN SODIUM 40 MG/0.4 ML DISP.SYRIN SQ SCH (20:43)
[2022-07-09] MEDS: ALBUTEROL FS 2.5 MG/0.5 ML VIAL.NEB NEB SCH ×4 (01:11→20:09)
[2022-07-09] MEDS: IPRATROPIUM NEB FS 0.5 MG/2.5 ML AMPUL.NEB NEB SCH ×4 (01:11→20:09)
[2022-07-09 04:00] VITALS: BP 156/80
[2022-07-09] MEDS: methylPREDNISolone SOD SUCC 40 MG/ML VIAL IV SCH (05:08)
[2022-07-09 06:11] LABS: BILIRUBIN,URINE NEGATIVE (NEGATIVE); COLOR,URINE YELLOW (YELLOW); LEUKOCYTE ESTERASE ,URINE NEGATIVE (NEGATIVE); NITRITE, URINE NEGATIVE (NEGATIVE); PROTEIN,URINE NEGATIVE (NEGATIVE); UGLUCOSE 1+ mg/dL (NEGATIVE)
[2022-07-09 06:29] LABS: BACTERIA,URINE Rare /HPF (None Seen); RBC,URINE 0-2 /HPF (0-2); SQUAMOUS EPITHELIAL CELL,UR Few /HPF (None Seen); WBC,URINE 0-2 /HPF (0-3)
--- NOTE | 2022-07-09 06:30 | NUR ---
MS RN CLOSING NOTES PT IN BED, AWAKE, A/O X4. ON RA, SATURATION 94% WITH NO SOB/ACUTE DISTRESS NOTED. DENIES PAIN AT THIS TIME. IV ACCESS ON R WRIST #22, IVF RUNNING AT 75 ML/HR. PT IS AMBULATORY. KEPT PT CLEAN, DRY AND COMFORTABLE. ALL SAFETY MEASURES IN PLACE, CALL LIGHT, ALL BELONGINGS WITHIN REACH; ENDORSED TO AM SHIFT.
--- NOTE | 2022-07-09 07:05 | NUR ---
ANALYSIS REPORTING DEVELOPER OPENING NOTES Received pt awake in bed AOx4. No complaints of pain or discomfort at this time. Pt is currently on 2L NC and tolerating it well. IV access on right wrist 22G patent and intact running NS @ 75cc/hr. HOB elevated to pts comfort. Siderails up at all times x3. Call light within reach. Will continue to monitor.
[2022-07-09 07:51] LABS: BASOPHILS % (AUTO) 0.2 % (0.0-2.0); HEMATOCRIT 43 % (39-51); HEMOGLOBIN 14.4 g/dL (13.5-17.5); LYMPHOCYTES # (AUTO) 0.7 K/uL (0.8-4.8); LYMPHOCYTES % (AUTO) 7.9 % (20.0-44.0); MEAN CORPUSCULAR HGB CONC 33 g/dl (31.0-36.0); MEAN CORPUSCULAR VOLUME 96 fL (80-96); MONOCYTES # (AUTO) 0.4 K/uL (0.1-1.30); MONOCYTES % (AUTO) 3.9 % (2.0-12.0); NEUTROPHILS # (AUTO) 8.3 K/uL (1.8-8.9); PLATELET COUNT (AUTO) 141 K/uL (150-450); RED BLOOD CELL COUNT(AUTO) 4.51 MIL/uL (4.5-6.0); WHITE BLOOD COUNT (AUTO) 9.4 K/uL (4.3-11.0)
[2022-07-09 08:00] VITALS: BP 166/85
[2022-07-09 08:19] LABS: CALCIUM, SERUM 9.1 mg/dL (8.5-10.1); CREATININE 0.7 mg/dL (0.6-1.3); MAGNESIUM 1.7 mg/dL (1.8-2.4); PHOSPHORUS 2.4 mg/dL (2.5-4.9); POTASSIUM 3.5 mmol/L (3.5-5.1)
[2022-07-09] MEDS: ATENOLOL 50 MG TABLET PO SCH (08:34)
[2022-07-09] MEDS: PANTOPRAZOLE 40 MG TABLET.DR PO SCH (08:34)
[2022-07-09] MEDS: MULTIVIT W/MINERALS 1 TAB TABLET PO SCH (08:34)
[2022-07-09] MEDS: FOLIC ACID 1 MG TABLET PO SCH (08:34)
[2022-07-09] MEDS: THIAMINE HCL 100 MG TABLET PO SCH (08:34)
[2022-07-09] MEDS: Magnesium 1GM/D5W 100ML PREMIX 100 ML IV SCH ×2 (11:43→12:54)
[2022-07-09] MEDS ORDERED: IV NS 0.9% 250 ML IV PRN (12:00)
[2022-07-09] MEDS: CEFTRIAXONE 1 G in IV D5W 50 ML IV SCH (13:57)
[2022-07-09] MEDS: AZITHROMYCIN 500 MG in IV D5W 250 ML IV SCH (15:55)
[2022-07-09 16:00] VITALS: BP 161/89
[2022-07-09] MEDS ORDERED: NEUTRA PHOS 1 POWD.PACKET PO ONE (16:00)
[2022-07-09] MEDS: ATORVASTATIN 40 MG TABLET PO SCH (17:02)
--- NOTE | 2022-07-09 18:30 | NUR ---
AUTO DAMAGE APPRAISER CLOSING NOTES All due meds and tx given as ordered. Pt tolerated everything well. All needs attended to. Pt is currently on 2L NC and tolerating it well. IV access on right wrist 22G patent and intact. Will endorse to oncoming nurse.
--- NOTE | 2022-07-09 18:42 | NUR ---
BODY MECHANIC NOTES Pt BP checked and is 164/78. Pt currently has no PRN BP medications. Yeyo Ho NP made aware awaiting response.
[2022-07-09] MEDS: ENOXAPARIN SODIUM 40 MG/0.4 ML DISP.SYRIN SQ SCH (21:09)
[2022-07-10] VITALS: BP 167/95
[2022-07-10] MEDS: IPRATROPIUM NEB FS 0.5 MG/2.5 ML AMPUL.NEB NEB SCH ×3 (00:53→13:30)
[2022-07-10] MEDS: ALBUTEROL FS 2.5 MG/0.5 ML VIAL.NEB NEB SCH ×3 (00:53→13:30)
--- NOTE | 2022-07-10 07:10 | NUR ---
RN OPENING NOTE RECEIVED PT IN BED, AWAKE, A/O X4. ON RA WITH NO SOB/ACUTE DISTRESS NOTED. DENIES PAIN AT THIS TIME. IV ACCESS RIGHT WRIST #22G. PT IS AMBULATORY. ALL SAFETY MEASURES IN PLACE, CALL LIGHT, TABLE WITHIN EASY REACH; WILL CONT WITH PLAN OF CARE DURING SHIFT.
[2022-07-10 07:11] LABS: BASOPHILS % (AUTO) 0.2 % (0.0-2.0); EOSINOPHILS % (AUTO) 0.3 % (0.0-6.0); HEMATOCRIT 47 % (39-51); HEMOGLOBIN 15.9 g/dL (13.5-17.5); LYMPHOCYTES # (AUTO) 1.3 K/uL (0.8-4.8); LYMPHOCYTES % (AUTO) 13.2 % (20.0-44.0); MEAN CORPUSCULAR HGB CONC 34 g/dl (31.0-36.0); MEAN CORPUSCULAR VOLUME 95 fL (80-96); MONOCYTES # (AUTO) 0.4 K/uL (0.1-1.30); MONOCYTES % (AUTO) 3.9 % (2.0-12.0); NEUTROPHILS # (AUTO) 8.2 K/uL (1.8-8.9); NEUTROPHILS % (AUTO) 82.4 % (43.0-81.0); PLATELET COUNT (AUTO) 150 K/uL (150-450); RED BLOOD CELL COUNT(AUTO) 4.96 MIL/uL (4.5-6.0); WHITE BLOOD COUNT (AUTO) 9.9 K/uL (4.3-11.0)
[2022-07-10 07:21] LABS: CALCIUM, SERUM 9.1 mg/dL (8.5-10.1); CREATININE 0.8 mg/dL (0.6-1.3); MAGNESIUM 1.9 mg/dL (1.8-2.4); PHOSPHORUS 3.9 mg/dL (2.5-4.9); POTASSIUM 3.3 mmol/L (3.5-5.1)
[2022-07-10] MEDS: PANTOPRAZOLE 40 MG TABLET.DR PO SCH (07:48)
[2022-07-10 08:00] VITALS: BP 133/83
[2022-07-10] MEDS: MULTIVIT W/MINERALS 1 TAB TABLET PO SCH (08:14)
[2022-07-10] MEDS: THIAMINE HCL 100 MG TABLET PO SCH (08:15)
[2022-07-10] MEDS: FOLIC ACID 1 MG TABLET PO SCH (08:15)
[2022-07-10 08:16] VITALS: BP 133/83
[2022-07-10] MEDS: ATENOLOL 50 MG TABLET PO SCH (08:16)
[2022-07-10] MEDS ORDERED: methylPREDNISolone SOD SUCC 40 MG/ML VIAL IV SCH (09:00)
[2022-07-10] MEDS ORDERED: METH4TAB3 PO (11:00)
[2022-07-10] MEDS ORDERED: AMOX-430 PO (11:00)
[2022-07-10] MEDS ORDERED: AZIT500T PO (11:00)
[2022-07-10] MEDS ORDERED: POTASSIUM CHLORIDE 20 MEQ TAB.PRT.SR PO ONE (11:00)
--- NOTE | 2022-07-10 13:20 | NUR ---
PATIENT DISCHARGED IN A STABLE CONDITION, AMBULATORY, NO SOB. DISCHARGE INSTRUCTIONS AND EXIT CARE EDUCATION PROVIDED VERBALLY AND PRINTED. WILL GO TO REHAB TOMORROW AND FOLLOW UP WITH PCP.
== END 2022-07-10 18:15 | disposition home health service (06) | DRG 190 ==
LOC: ER 11:56 → TELE1 16:39 → MEDSG1 07-08 10:30
PROVIDERS: ADMIT Nurse Practitioner Acute Care; ATTEND Nurse Practitioner Acute Care
DX: J44.1 Chronic obstructive pulmonary disease with (acute) exacerbation (principal); J96.21 Acute and chronic respiratory failure with hypoxia; E87.20 Acidosis, unspecified; J90 Pleural effusion, not elsewhere classified; Z20.822 Contact with and (suspected) exposure to COVID-19; E78.5 Hyperlipidemia, unspecified; R79.1 Abnormal coagulation profile; F10.20 Alcohol dependence, uncomplicated; I10 Essential (primary) hypertension; F17.210 Nicotine dependence, cigarettes, uncomplicated; Z83.3 Family history of diabetes mellitus; Z82.49 Family history of ischemic heart disease and other diseases of the circulatory system; Z82.3 Family history of stroke; Z79.899 Other long term (current) drug therapy; Z91.199 Patient's noncompliance with other medical treatment and regimen due to unspecified reason; Z87.19 Personal history of other diseases of the digestive system; Z90.49 Acquired absence of other specified parts of digestive tract
CPT/HCPCS: 36415; 36600; 71045-TC; 80048-TC; 80061-TC; 80076-TC; 81001; 82803-TC; 82962-TC; 83605-TC; 83735-TC; 83880; 84100-TC; 84484-TC; 85025-TC; 85378-TC; 87040-TC; 94799-TC; 97110-TC; 97116-TC; A4223; C9803; G0378; J0456; J0696; J1650; J2920; J2930; J3475; J7030; J7050; J7060; Q9967

== ENCOUNTER 2024-01-05 14:58 | Inpatient (IN) | payer MEDICARE, BC ==
[~2024-01-05] VITALS: Ht 175.3 cm; Wt 81.6 kg
[~2024-01-05 14:58] MED LIST changes: +AMOX-430 PO; +ATOR40TA PO; +AZIT500T PO; +IPRA3AMP23 IH; +METH4TAB3 PO; +MULT-447 PO; +PANT40TA49 PO; +THIA100T88 PO
[2024-01-05] MEDS ORDERED: PHENOBARBITAL SODIUM 130 MG/ML VIAL ONE ×2 (15:39→15:54)
[2024-01-05] MEDS ORDERED: THIAMINE HCL 100 MG TABLET ONE (15:39)
[2024-01-05] MEDS: IV NS 0.9% 1,000 ML BAG IV ONE (15:43)
[2024-01-05] MEDS: THIAMINE HCL 100 MG TABLET PO ONE (15:43)
[2024-01-05 15:55] LABS: BASOPHILS % (AUTO) 0.6 % (0.0-2.0); EOSINOPHILS % (AUTO) 0.2 % (0.0-6.0); HEMATOCRIT 45 % (39-51); HEMOGLOBIN 15.6 g/dL (13.5-17.5); LYMPHOCYTES # (AUTO) 0.9 K/uL (0.8-4.8); LYMPHOCYTES % (AUTO) 17.4 % (20.0-44.0); MEAN CORPUSCULAR HEMOGLOBIN 34 PG (26.0-33.0); MEAN CORPUSCULAR HGB CONC 34 g/dl (31.0-36.0); MEAN CORPUSCULAR VOLUME 98 fL (80-96); MONOCYTES # (AUTO) 0.4 K/uL (0.1-1.30); MONOCYTES % (AUTO) 7.7 % (2.0-12.0); NEUTROPHILS # (AUTO) 3.7 K/uL (1.8-8.9); NEUTROPHILS % (AUTO) 74.1 % (43.0-81.0); PLATELET COUNT (AUTO) 151 K/uL (150-450); RED BLOOD CELL COUNT(AUTO) 4.63 MIL/uL (4.5-6.0); RED CELL DISTRIBUTION WIDTH 15.3 % (11.5-15.0)
[2024-01-05 15:59] LABS: CALCIUM, SERUM 9.1 mg/dL (8.5-10.1); CARBON DIOXIDE 31 mmol/L (21-32); CHLORIDE 90 mmol/L (98-107); CREATININE 0.7 mg/dL (0.6-1.3); GLUCOSE 66 mg/dL (74-106); POTASSIUM 3.9 mmol/L (3.5-5.1); SODIUM SERUM 132 mmol/L (136-145); UREA NITROGEN, BLOOD 9 mg/dL (7-18)
[2024-01-05] MEDS: PHENOBARBITAL SODIUM 130 MG/ML VIAL IV ONE (16:01)
[2024-01-05 16:04] LABS: INR 1.11 (0.91-1.10); PARTIAL THROMBOPLASTIN TIME 27.9 SEC (24.3-34.3); PROTHROMBIN TIME 11.3 SECS (9.2-11.1)
[2024-01-05 16:12] LABS: ALANINE AMINOTRANSFERASE 119 U/L (12-78); ALKALINE PHOSPHATASE 78 U/L (46-116); ASPARTATE AMINOTRANSFERASE 114 U/L (15-37); BILIRUBIN,DIRECT 0.4 mg/dL (0.0-0.2); NT-PRO BNP 827 pg/mL (0-125); TOTAL PROTEIN, SERUM 6.4 g/dL (6.4-8.2)
[2024-01-05] MEDS ORDERED: Medication Not On Formulary EA (Ipratropium/Albuterol Sulfate (Duoneb 2.5-0.5 Mg/3 Ml So IH PRN (18:30)
[2024-01-05] MEDS ORDERED: CLONIDINE HCL 0.1 MG TABLET PO PRN (18:30)
[2024-01-05] MEDS ORDERED: Z GUARD REMEDY 4 OZ OINT TP PRN (18:30)
[2024-01-05] MEDS ORDERED: ONDANSETRON HCL/PF 4 MG/2 ML VIAL IVP PRN (18:30)
[2024-01-05] MEDS ORDERED: MAG HYDROX/AL HYDROX/SIMETH 30 ML UDC PO PRN (18:30)
[2024-01-05] MEDS ORDERED: MAGNESIUM HYDROXIDE 30 ML UDC PO PRN (18:30)
[2024-01-05] MEDS ORDERED: IPRATROPIUM NEB FS 0.5 MG/2.5 ML AMPUL.NEB NEB PRN (18:30)
[2024-01-05] MEDS ORDERED: ALBUTEROL FS 2.5 MG/3 ML VIAL.NEB NEB PRN (18:30)
[2024-01-05 22:51] VITALS: BP 143/84; TEMP 98.6; O2SAT 93
[2024-01-05] MEDS: IV NS 0.9% 1,000 ML IV PRN (23:49)
[2024-01-06] VITALS: BP 141/73; TEMP 98.1; O2SAT 94
[2024-01-06] MEDS: ACETAMINOPHEN 325 MG TABLET PO PRN (02:41)
[2024-01-06 04:00] VITALS: BP 128/87; TEMP 99; O2SAT 96
[2024-01-06 08:00] VITALS: BP 124/84; TEMP 99; O2SAT 96
[2024-01-06] MEDS: PANTOPRAZOLE 40 MG TABLET.DR PO SCH (08:00)
[2024-01-06 08:11] LABS: CALCIUM, SERUM 8.8 mg/dL (8.5-10.1); CARBON DIOXIDE 30 mmol/L (21-32); CHLORIDE 96 mmol/L (98-107); CREATININE 0.7 mg/dL (0.6-1.3); GLUCOSE 75 mg/dL (74-106); MAGNESIUM 1.6 mg/dL (1.8-2.4); PHOSPHORUS 2.4 mg/dL (2.5-4.9); POTASSIUM 3.7 mmol/L (3.5-5.1); SODIUM SERUM 132 mmol/L (136-145); UREA NITROGEN, BLOOD 12 mg/dL (7-18)
[2024-01-06 08:13] LABS: BASOPHILS % (AUTO) 0.7 % (0.0-2.0); EOSINOPHILS % (AUTO) 1.1 % (0.0-6.0); HEMATOCRIT 41 % (39-51); LYMPHOCYTES % (AUTO) 29.6 % (20.0-44.0); MEAN CORPUSCULAR HEMOGLOBIN 33 PG (26.0-33.0); MEAN CORPUSCULAR HGB CONC 34 g/dl (31.0-36.0); MEAN CORPUSCULAR VOLUME 97 fL (80-96); MONOCYTES # (AUTO) 0.4 K/uL (0.1-1.30); NEUTROPHILS # (AUTO) 1.9 K/uL (1.8-8.9); NEUTROPHILS % (AUTO) 57.6 % (43.0-81.0); PLATELET COUNT (AUTO) 113 K/uL (150-450); RED BLOOD CELL COUNT(AUTO) 4.27 MIL/uL (4.5-6.0); RED CELL DISTRIBUTION WIDTH 15.4 % (11.5-15.0); WHITE BLOOD COUNT (AUTO) 3.4 K/uL (4.3-11.0)
[2024-01-06] MEDS: MULTIVIT W/MINERALS 1 TAB TABLET PO SCH (08:24)
[2024-01-06] MEDS: ATENOLOL 50 MG TABLET PO SCH (08:24)
[2024-01-06] MEDS: THIAMINE HCL 100 MG TABLET PO SCH (08:26)
[2024-01-06] MEDS: ENOXAPARIN SODIUM 40 MG/0.4 ML DISP.SYRIN SQ SCH (08:27)
[2024-01-06] MEDS: MINERAL OIL/PETROL OINT 396 GM JAR TP SCH (08:28)
[2024-01-06] MEDS: MAGNESIUM OXIDE 400 MG TABLET PO ONE (10:29)
[2024-01-06] MEDS ORDERED: CHLORDIAZEPOXIDE HCL 5 MG CAPSULE PO PRN (11:30)
[2024-01-06 12:00] VITALS: BP 126/73; TEMP 98.8; O2SAT 95
[2024-01-06] MEDS: K PHOS NEUTRAL 250 MG TABLET PO ONE (15:34)
[2024-01-06 16:00] VITALS: BP 127/78; TEMP 99; O2SAT 95
[2024-01-06 20:00] VITALS: BP 131/79; TEMP 98.2; O2SAT 94
[2024-01-07] VITALS (8 sets, daily range): BP systolic 116–144; BP diastolic 60–91; TEMP 97.9–98.6; O2SAT 92–97
[2024-01-07 06:52] LABS: CALCIUM, SERUM 8.2 mg/dL (8.5-10.1); CARBON DIOXIDE 32 mmol/L (21-32); CHLORIDE 98 mmol/L (98-107); CREATININE 0.6 mg/dL (0.6-1.3); GLUCOSE 113 mg/dL (74-106); MAGNESIUM 1.3 mg/dL (1.8-2.4); PHOSPHORUS 3.4 mg/dL (2.5-4.9); POTASSIUM 3.7 mmol/L (3.5-5.1); SODIUM SERUM 138 mmol/L (136-145); UREA NITROGEN, BLOOD 7 mg/dL (7-18)
[2024-01-07 06:58] LABS: MAGNESIUM 1.3 mg/dL (1.8-2.4); PHOSPHORUS 3.3 mg/dL (2.5-4.9)
[2024-01-07 07:04] LABS: THYROID STIMULATING HORMONE 1.1 uIU/mL (0.358-3.74); URIC ACID 4.7 mg/dL (2.6-7.2)
[2024-01-07] MEDS: Magnesium 1GM/D5W 100ML PREMIX 100 ML IV SCH (09:40)
[2024-01-07 10:44] LABS: THYROID STIMULATING HORMONE 1.22 uIU/mL (0.358-3.74)
[2024-01-08 04:00] VITALS: BP 138/81; TEMP 98.3; O2SAT 93
[2024-01-08 08:05] VITALS: BP 147/89; TEMP 98.2; O2SAT 93
[2024-01-08] MEDS: METOPROLOL TARTRATE 50 MG TABLET PO SCH (11:34)
[2024-01-08 12:09] LABS: CALCIUM, SERUM 8.2 mg/dL (8.5-10.1); CARBON DIOXIDE 33 mmol/L (21-32); CHLORIDE 100 mmol/L (98-107); CREATININE 0.7 mg/dL (0.6-1.3); GLUCOSE 136 mg/dL (74-106); POTASSIUM 3.3 mmol/L (3.5-5.1); SODIUM SERUM 137 mmol/L (136-145); UREA NITROGEN, BLOOD 8 mg/dL (7-18)
[2024-01-08 12:12] LABS: BASOPHILS % (AUTO) 0.6 % (0.0-2.0); EOSINOPHILS % (AUTO) 0.8 % (0.0-6.0); HEMATOCRIT 41 % (39-51); HEMOGLOBIN 13.7 g/dL (13.5-17.5); LYMPHOCYTES # (AUTO) 1.1 K/uL (0.8-4.8); LYMPHOCYTES % (AUTO) 26.6 % (20.0-44.0); MEAN CORPUSCULAR HEMOGLOBIN 33 PG (26.0-33.0); MEAN CORPUSCULAR HGB CONC 34 g/dl (31.0-36.0); MEAN CORPUSCULAR VOLUME 99 fL (80-96); MONOCYTES # (AUTO) 0.4 K/uL (0.1-1.30); MONOCYTES % (AUTO) 10.6 % (2.0-12.0); NEUTROPHILS # (AUTO) 2.5 K/uL (1.8-8.9); NEUTROPHILS % (AUTO) 61.4 % (43.0-81.0); PLATELET COUNT (AUTO) 74 K/uL (150-450); RED BLOOD CELL COUNT(AUTO) 4.11 MIL/uL (4.5-6.0); RED CELL DISTRIBUTION WIDTH 15.1 % (11.5-15.0)
[2024-01-08 12:15] LABS: ALANINE AMINOTRANSFERASE 43 U/L (12-78); ALBUMIN 2.9 g/dL (3.4-5.0); ALKALINE PHOSPHATASE 66 U/L (46-116); ASPARTATE AMINOTRANSFERASE 22 U/L (15-37); BILIRUBIN,TOTAL 0.5 mg/dL (0.2-1.0); MAGNESIUM 1.4 mg/dL (1.8-2.4); PHOSPHORUS 2.5 mg/dL (2.5-4.9); TOTAL PROTEIN, SERUM 5.2 g/dL (6.4-8.2)
[2024-01-08 13:06] LABS: ANISOCYTOSIS 1+; EOSINOPHILS % (MANUAL) 1 % (0-4); LYMPHOCYTES % (MANUAL) 27 % (16-48); MONOCYTES % (MANUAL) 11 % (0-11.0); NEUTROPHILS % (MANUAL) 60 (42-76); PLATELET ESTIMATE DECREASED; REACTIVE LYMPHOCYTES 1 % (0-0)
[2024-01-08 16:23] VITALS: BP 108/59; TEMP 97.7; O2SAT 94
[2024-01-08 20:00] VITALS: BP 126/70; TEMP 98.1; O2SAT 94
[2024-01-09 04:00] VITALS: BP 139/79; TEMP 98; O2SAT 94
[2024-01-09 08:30] VITALS: BP 119/91; TEMP 98.6; O2SAT 95
[2024-01-09 12:25] VITALS: BP 116/71
== END 2024-01-09 16:40 | DRG 896 ==
LOC: ER 15:00 → TELE1 21:06 → MEDSG1 01-07 10:01 → UNDODISIN 01-07 16:02
PROVIDERS: ADMIT Internal Medicine; ATTEND Internal Medicine
DX: F10.139 Alcohol abuse with withdrawal, unspecified (principal); I21.A1 Myocardial infarction type 2; E87.1 Hypo-osmolality and hyponatremia; E87.20 Acidosis, unspecified; I50.22 Chronic systolic (congestive) heart failure; Y90.3 Blood alcohol level of 60-79 mg/100 ml; E78.5 Hyperlipidemia, unspecified; E86.1 Hypovolemia; K70.10 Alcoholic hepatitis without ascites; R53.1 Weakness; D64.9 Anemia, unspecified; E83.39 Other disorders of phosphorus metabolism; E83.42 Hypomagnesemia; E87.6 Hypokalemia; Z90.49 Acquired absence of other specified parts of digestive tract; I11.0 Hypertensive heart disease with heart failure; R74.01 Elevation of levels of liver transaminase levels; D49.89 Neoplasm of unspecified behavior of other specified sites; S81.811A Laceration without foreign body, right lower leg, initial encounter; X58.XXXA Exposure to other specified factors, initial encounter; Y93.9 Activity, unspecified; Y92.009 Unspecified place in unspecified non-institutional (private) residence as the place of occurrence of the external cause; Z87.891 Personal history of nicotine dependence; Z82.3 Family history of stroke; Z82.49 Family history of ischemic heart disease and other diseases of the circulatory system; Z83.3 Family history of diabetes mellitus
CPT/HCPCS: 36415; 71045-TC; 76700-TC; 80048-TC; 80053-TC; 80061-TC; 80076-TC; 82140-TC; 83735-TC; 83880; 83935-TC; 84100-TC; 84300-TC; 84439-TC; 84443-TC; 84484-TC; 84550-TC; 85025-TC; 85730-TC; 93307-TC; 94799-TC; 97110-TC; 97116-TC; 97530-TC; A4223; G0378; G0480; J1650; J2560; J3475; J7030

== ENCOUNTER 2024-07-27 20:23 | Inpatient (IN) | payer MEDICARE, BC ==
[~2024-07-27] VITALS: Ht 170.2 cm; Wt 83.9 kg
[~2024-07-27 20:23] MED LIST changes: -AMOX-430 PO; -AZIT500T PO; -METH4TAB3 PO; -MULT-451 PO
[2024-07-27] MEDS: IV NS 0.9% 1,000 ML BAG IV ONE (20:49)
[2024-07-27 20:51] LABS: BASOPHILS % (AUTO) 0.6 % (0.0-2.0); EOSINOPHILS % (AUTO) 0.5 % (0.0-6.0); HEMATOCRIT 45 % (39-51); LYMPHOCYTES # (AUTO) 1.4 K/uL (0.8-4.8); LYMPHOCYTES % (AUTO) 16.9 % (20.0-44.0); MEAN CORPUSCULAR HEMOGLOBIN 30 PG (26.0-33.0); MEAN CORPUSCULAR HGB CONC 34 g/dl (31.0-36.0); MEAN CORPUSCULAR VOLUME 89 fL (80-96); MONOCYTES % (AUTO) 12.1 % (2.0-12.0); NEUTROPHILS # (AUTO) 5.7 K/uL (1.8-8.9); NEUTROPHILS % (AUTO) 69.9 % (43.0-81.0); PLATELET COUNT (AUTO) 316 K/uL (150-450); RED BLOOD CELL COUNT(AUTO) 4.99 MIL/uL (4.5-6.0); RED CELL DISTRIBUTION WIDTH 16.7 % (11.5-15.0); WHITE BLOOD COUNT (AUTO) 8.1 K/uL (4.3-11.0)
[2024-07-27] MEDS ORDERED: FOLIC ACID 1 MG TABLET ONE (20:51)
[2024-07-27] MEDS ORDERED: THIAMINE HCL 100 MG TABLET ONE (20:51)
[2024-07-27] MEDS: THIAMINE HCL 100 MG TABLET PO ONE (20:53)
[2024-07-27] MEDS: FOLIC ACID 1 MG TABLET PO ONE (20:53)
[2024-07-27 21:11] LABS: ALBUMIN 3.5 g/dL (3.4-5.0); BILIRUBIN,DIRECT 0.4 mg/dL (0.0-0.2); BILIRUBIN,TOTAL 0.7 mg/dL (0.2-1.0); CALCIUM, SERUM 8.4 mg/dL (8.5-10.1); CREATININE 0.6 mg/dL (0.6-1.3); POTASSIUM 3.8 mmol/L (3.5-5.1); TOTAL PROTEIN, SERUM 6.6 g/dL (6.4-8.2)
[2024-07-27] MEDS ORDERED: DEXTROSE 50%-WATER 50 ML DISP.SYRIN ONE (21:23)
[2024-07-27] MEDS: DEXTROSE 50%-WATER 50 ML DISP.SYRIN IVP ONE (21:29)
[2024-07-27] MEDS ORDERED: ACETAMINOPHEN 325 MG TABLET PO PRN (21:30)
[2024-07-27] MEDS ORDERED: MORPHINE SULFATE INJ 2 MG/ML DISP.SYRIN IV PRN (21:30)
[2024-07-27] MEDS ORDERED: hydrALAZINE HCL IV 20 MG VIAL IV PRN (21:30)
[2024-07-27] MEDS ORDERED: LORAZEPAM INJ 2 MG/ML VIAL IV PRN (21:30)
[2024-07-27] MEDS: IV NS 0.9% 1,000 ML IV SCH (22:08)
[2024-07-27 22:20] VITALS: BP 135/75; TEMP 98.1; O2SAT 95
[2024-07-28 06:22] LABS: BASOPHILS % (AUTO) 0.4 % (0.0-2.0); EOSINOPHILS % (AUTO) 0.6 % (0.0-6.0); HEMATOCRIT 39 % (39-51); HEMOGLOBIN 13.3 g/dL (13.5-17.5); LYMPHOCYTES % (AUTO) 14.2 % (20.0-44.0); MEAN CORPUSCULAR HEMOGLOBIN 30 PG (26.0-33.0); MEAN CORPUSCULAR HGB CONC 34 g/dl (31.0-36.0); MEAN CORPUSCULAR VOLUME 88 fL (80-96); MONOCYTES # (AUTO) 0.8 K/uL (0.1-1.30); MONOCYTES % (AUTO) 10.7 % (2.0-12.0); NEUTROPHILS # (AUTO) 5.4 K/uL (1.8-8.9); NEUTROPHILS % (AUTO) 74.1 % (43.0-81.0); PLATELET COUNT (AUTO) 303 K/uL (150-450); RED BLOOD CELL COUNT(AUTO) 4.44 MIL/uL (4.5-6.0); RED CELL DISTRIBUTION WIDTH 16.9 % (11.5-15.0); WHITE BLOOD COUNT (AUTO) 7.3 K/uL (4.3-11.0)
[2024-07-28 06:53] LABS: ALBUMIN 3.2 g/dL (3.4-5.0); BILIRUBIN,TOTAL 1.1 mg/dL (0.2-1.0); CALCIUM, SERUM 8.2 mg/dL (8.5-10.1); CREATININE 0.6 mg/dL (0.6-1.3); MAGNESIUM 1.6 mg/dL (1.8-2.4); PHOSPHORUS 1.6 mg/dL (2.5-4.9); POTASSIUM 3.4 mmol/L (3.5-5.1); TOTAL PROTEIN, SERUM 5.9 g/dL (6.4-8.2)
[2024-07-28] MEDS: PANTOPRAZOLE 40 MG TABLET.DR PO SCH (07:44)
[2024-07-28 08:00] VITALS: BP 142/92; TEMP 98.2; O2SAT 98
[2024-07-28] MEDS: ONDANSETRON HCL/PF 4 MG/2 ML VIAL IVP PRN (08:28)
[2024-07-28] MEDS: CHLORDIAZEPOXIDE HCL 25 MG CAPSULE PO SCH (09:41)
[2024-07-28] MEDS: DOCUSATE SODIUM LIQ 100 MG/10 ML UDC PO SCH (09:41)
[2024-07-28] MEDS: POLYETHYLENE GLYCOL 3350 17 GM POWD.PACK PO SCH (09:41)
[2024-07-28] MEDS: THIAMINE HCL 100 MG TABLET PO SCH (09:42)
[2024-07-28] MEDS: ATENOLOL 50 MG TABLET PO SCH (09:42)
[2024-07-28] MEDS: HEPARIN SODIUM, PORCINE 5000 UNITS/1 ML VIAL SQ SCH (09:45)
[2024-07-28] MEDS ORDERED: MAGNESIUM OXIDE 400 MG TABLET PO ONE (10:00)
[2024-07-28] MEDS: POTASSIUM CHLORIDE 20 MEQ TAB.PRT.SR PO SCH (10:25)
[2024-07-28] MEDS: Magnesium 1GM/D5W 100ML PREMIX PIGGYBACK IV ONE (10:25)
[2024-07-28] MEDS: NEUTRA PHOS 1 POWD.PACKET PO ONE ×2 (10:26→13:41)
[2024-07-28 16:00] VITALS: BP 120/71; TEMP 98.1; O2SAT 94
[2024-07-28] MEDS: ATORVASTATIN 40 MG TABLET PO SCH (17:57)
[2024-07-28 21:36] VITALS: BP 104/66; TEMP 98.4; O2SAT 93
[2024-07-29 06:43] LABS: BASOPHILS % (AUTO) 0.7 % (0.0-2.0); EOSINOPHILS # (AUTO) 0.1 K/uL (0.0-0.7); EOSINOPHILS % (AUTO) 1.4 % (0.0-6.0); HEMATOCRIT 38 % (39-51); HEMOGLOBIN 12.7 g/dL (13.5-17.5); LYMPHOCYTES # (AUTO) 1.2 K/uL (0.8-4.8); LYMPHOCYTES % (AUTO) 27.1 % (20.0-44.0); MEAN CORPUSCULAR HEMOGLOBIN 30 PG (26.0-33.0); MEAN CORPUSCULAR HGB CONC 34 g/dl (31.0-36.0); MEAN CORPUSCULAR VOLUME 90 fL (80-96); MONOCYTES # (AUTO) 0.4 K/uL (0.1-1.30); MONOCYTES % (AUTO) 9.6 % (2.0-12.0); NEUTROPHILS # (AUTO) 2.7 K/uL (1.8-8.9); NEUTROPHILS % (AUTO) 61.2 % (43.0-81.0); PLATELET COUNT (AUTO) 238 K/uL (150-450); RED BLOOD CELL COUNT(AUTO) 4.23 MIL/uL (4.5-6.0); RED CELL DISTRIBUTION WIDTH 17.3 % (11.5-15.0); WHITE BLOOD COUNT (AUTO) 4.5 K/uL (4.3-11.0)
[2024-07-29 07:19] LABS: ALBUMIN 2.7 g/dL (3.4-5.0); BILIRUBIN,TOTAL 0.4 mg/dL (0.2-1.0); CALCIUM, SERUM 8.3 mg/dL (8.5-10.1); CREATININE 0.5 mg/dL (0.6-1.3); MAGNESIUM 1.8 mg/dL (1.8-2.4); PHOSPHORUS 2.7 mg/dL (2.5-4.9); POTASSIUM 3.7 mmol/L (3.5-5.1); TOTAL PROTEIN, SERUM 5.4 g/dL (6.4-8.2)
[2024-07-29 08:00] VITALS: BP 143/84; TEMP 98.2; O2SAT 97
[2024-07-29 16:00] VITALS: BP 130/82; TEMP 98.4; O2SAT 95
[2024-07-29 20:00] VITALS: BP 122/66; TEMP 98.2; O2SAT 93
[2024-07-30 08:00] VITALS: BP 178/71; TEMP 97.9; O2SAT 99
[2024-07-30] MEDS ORDERED: TEMAZEPAM 15 MG CAPSULE PO PRN (15:00)
[2024-07-30 16:00] VITALS: BP 122/61; TEMP 97.9; O2SAT 96
[2024-07-30] MEDS: K PHOS NEUTRAL 250 MG TABLET PO ONE (16:40)
[2024-07-30 20:00] VITALS: BP 118/65; TEMP 97.9; O2SAT 95
[2024-07-31 08:00] VITALS: BP 116/60; TEMP 97.7; O2SAT 97
[2024-07-31 08:24] LABS: CALCIUM, SERUM 8.9 mg/dL (8.5-10.1); CREATININE 0.7 mg/dL (0.6-1.3); PHOSPHORUS 4.3 mg/dL (2.5-4.9); POTASSIUM 3.5 mmol/L (3.5-5.1)
[2024-07-31] MEDS ORDERED: CHLO25CA22 PO (11:34)
[2024-07-31 12:17] LABS: THYROID STIMULATING HORMONE 1.65 uIU/mL (0.358-3.74)
[2024-07-31 16:00] VITALS: BP 102/54; TEMP 97.7; O2SAT 90
[2024-07-31 20:00] VITALS: BP 128/76; TEMP 97.7; O2SAT 94
[2024-08-01 05:09] LABS: FOLIC ACID 7.7 ng/mL (>3.0)
[2024-08-01 07:00] VITALS: BP 116/72; TEMP 98.1; O2SAT 94
[2024-08-01 07:17] LABS: CALCIUM, SERUM 8.9 mg/dL (8.5-10.1); CARBON DIOXIDE 36 mmol/L (21-32); CHLORIDE 102 mmol/L (98-107); CREATININE 0.6 mg/dL (0.6-1.3); GLUCOSE 100 mg/dL (74-106); POTASSIUM 3.8 mmol/L (3.5-5.1); SODIUM SERUM 141 mmol/L (136-145); UREA NITROGEN, BLOOD 14 mg/dL (7-18)
[2024-08-01 07:19] LABS: ALCOHOL, BLOOD < 3 mg/dL (0-10)
[2024-08-01 09:10] LABS: BASOPHILS % (AUTO) 0.7 % (0.0-2.0); EOSINOPHILS % (AUTO) 0.7 % (0.0-6.0); HEMATOCRIT 37 % (39-51); HEMOGLOBIN 12.4 g/dL (13.5-17.5); LYMPHOCYTES # (AUTO) 1.4 K/uL (0.8-4.8); LYMPHOCYTES % (AUTO) 23.6 % (20.0-44.0); MEAN CORPUSCULAR HEMOGLOBIN 30 PG (26.0-33.0); MEAN CORPUSCULAR HGB CONC 33 g/dl (31.0-36.0); MEAN CORPUSCULAR VOLUME 92 fL (80-96); MONOCYTES # (AUTO) 0.3 K/uL (0.1-1.30); MONOCYTES % (AUTO) 5.5 % (2.0-12.0); NEUTROPHILS # (AUTO) 4.3 K/uL (1.8-8.9); NEUTROPHILS % (AUTO) 69.5 % (43.0-81.0); PLATELET COUNT (AUTO) 191 K/uL (150-450); RED BLOOD CELL COUNT(AUTO) 4.07 MIL/uL (4.5-6.0); RED CELL DISTRIBUTION WIDTH 17.3 % (11.5-15.0); WHITE BLOOD COUNT (AUTO) 6.1 K/uL (4.3-11.0)
[2024-08-01 11:28] VITALS: BP 116/72; TEMP 97.7
[2024-08-01 16:00] VITALS: BP 116/57; TEMP 97.5; O2SAT 94
== END 2024-08-01 18:00 | disposition home health service (06) | DRG 897 ==
LOC: ER 20:28 → MED 21:50
PROVIDERS: ADMIT Internal Medicine; ATTEND Nurse Practitioner Acute Care
DX: F10.139 Alcohol abuse with withdrawal, unspecified (principal); I50.22 Chronic systolic (congestive) heart failure; E87.1 Hypo-osmolality and hyponatremia; E86.0 Dehydration; K70.10 Alcoholic hepatitis without ascites; Y90.6 Blood alcohol level of 120-199 mg/100 ml; R62.7 Adult failure to thrive; I11.0 Hypertensive heart disease with heart failure; E86.1 Hypovolemia; I25.10 Atherosclerotic heart disease of native coronary artery without angina pectoris; D64.9 Anemia, unspecified; E78.5 Hyperlipidemia, unspecified; E83.39 Other disorders of phosphorus metabolism; E83.42 Hypomagnesemia; E87.6 Hypokalemia; Z90.49 Acquired absence of other specified parts of digestive tract; Z82.49 Family history of ischemic heart disease and other diseases of the circulatory system; Z82.3 Family history of stroke; Z83.3 Family history of diabetes mellitus
CPT/HCPCS: 36415; 80048-TC; 80053-TC; 80076-TC; 82607-TC; 82962-TC; 83735-TC; 83921; 84100-TC; 84425; 84443-TC; 85025-TC; 97110-TC; 97116-TC; 97530-TC; 97535-TC; A4223; G0378; G0480; J1644; J2405; J3475; J7030

== ENCOUNTER 2024-09-22 16:10 | Inpatient (IN) | payer MEDICARE, BC ==
[~2024-09-22] VITALS: Ht 165.1 cm; Wt 81.6 kg
[2024-09-22] MEDS ORDERED: ALBUTEROL FS 2.5 MG/3 ML VIAL.NEB ONE (16:32)
[2024-09-22] MEDS ORDERED: IPRATROPIUM NEB FS 0.5 MG/2.5 ML AMPUL.NEB ONE (16:32)
[2024-09-22 16:35] VITALS: O2SAT 94
[2024-09-22] MEDS ORDERED: Magnesium 1GM/D5W 100ML PREMIX 100 ML IV ONE ×2 (16:35→17:32)
[2024-09-22] MEDS: Magnesium 1GM/D5W 100ML PREMIX 200 ML IV ONE (16:40)
[2024-09-22] MEDS: ALBUTEROL FS 2.5 MG/3 ML VIAL.NEB CONTNEB ONE (16:41)
[2024-09-22] MEDS: IPRATROPIUM NEB FS 0.5 MG/2.5 ML AMPUL.NEB NEB ONE (16:41)
[2024-09-22 16:51] LABS: PLATELET COUNT (AUTO) 146 K/uL (150-450); RED BLOOD CELL COUNT(AUTO) 4.83 MIL/uL (4.5-6.0); RED CELL DISTRIBUTION WIDTH 16.7 % (11.5-15.0); WHITE BLOOD COUNT (AUTO) 8.0 K/uL (4.3-11.0)
[2024-09-22 16:59] LABS: CALCIUM, SERUM 8.7 mg/dL (8.5-10.1); CREATININE 0.8 mg/dL (0.6-1.3); SODIUM SERUM 137 mmol/L (136-145); UREA NITROGEN, BLOOD 17 mg/dL (7-18)
[2024-09-22 17:00] VITALS: O2SAT 94
[2024-09-22 17:11] LABS: ASPARTATE AMINOTRANSFERASE 113 U/L (15-37); NT-PRO BNP 610 pg/mL (0-125); TOTAL PROTEIN, SERUM 6.4 g/dL (6.4-8.2)
[2024-09-22 17:30] VITALS: O2SAT 93
[2024-09-22] MEDS ORDERED: Z GUARD REMEDY 4 OZ OINT TP PRN (18:00)
[2024-09-22] MEDS ORDERED: ONDANSETRON HCL/PF 4 MG/2 ML VIAL IVP PRN (18:00)
[2024-09-22] MEDS: DOXYCYCLINE HYCLATE (100 MG) 100 MG TABLET PO SCH (21:04)
[2024-09-22] MEDS: CHLORDIAZEPOXIDE HCL 25 MG CAPSULE PO SCH (21:04)
[2024-09-22] MEDS: ENOXAPARIN SODIUM 40 MG/0.4 ML DISP.SYRIN SQ SCH (21:18)
[2024-09-22] MEDS: FOLIC ACID 1 MG TABLET PO SCH (21:18)
[2024-09-22] MEDS: THIAMINE HCL 100 MG TABLET PO SCH (21:19)
[2024-09-22 22:02] VITALS: BP 134/92; TEMP 98.2; O2SAT 96
[2024-09-23] VITALS (13 sets, daily range): BP systolic 110–156; BP diastolic 51–84; TEMP 97.3–98.5; O2SAT 94–98
[2024-09-23] MEDS: ACETAMINOPHEN 325 MG TABLET PO PRN (00:42)
[2024-09-23 07:07] LABS: CALCIUM, SERUM 8.9 mg/dL (8.5-10.1); CREATININE 0.7 mg/dL (0.6-1.3); PHOSPHORUS 3.1 mg/dL (2.5-4.9); SODIUM SERUM 139.0 mmol/L (136-145); UREA NITROGEN, BLOOD 14.0 mg/dL (7-18)
[2024-09-23 07:10] LABS: PLATELET COUNT (AUTO) 113 K/uL (150-450); RED BLOOD CELL COUNT(AUTO) 4.62 MIL/uL (4.5-6.0); RED CELL DISTRIBUTION WIDTH 17.0 % (11.5-15.0); WHITE BLOOD COUNT (AUTO) 3.4 K/uL (4.3-11.0)
[2024-09-23] MEDS: IPRATROPIUM NEB FS 0.5 MG/2.5 ML AMPUL.NEB NEB SCH (07:20)
[2024-09-23] MEDS: ALBUTEROL FS 2.5 MG/3 ML VIAL.NEB NEB SCH (07:20)
[2024-09-23] MEDS: PANTOPRAZOLE 40 MG TABLET.DR PO SCH ×2 (07:42→12:24)
[2024-09-23 11:49] LABS: ASPARTATE AMINOTRANSFERASE 78.0 U/L (15-37); TOTAL PROTEIN, SERUM 6.4 g/dL (6.4-8.2)
[2024-09-23] MEDS: MULTIVIT W/MINERALS 1 TAB TABLET PO SCH (12:23)
[2024-09-23] MEDS: ATENOLOL 50 MG TABLET PO SCH (12:24)
[2024-09-23] MEDS: ATORVASTATIN 40 MG TABLET PO SCH (17:01)
[2024-09-24] VITALS (14 sets, daily range): BP systolic 110–124; BP diastolic 59–82; TEMP 97.5–98.3; O2SAT 94–99
[2024-09-24 14:21] LABS: PLATELET COUNT (AUTO) 92 K/uL (150-450); RED BLOOD CELL COUNT(AUTO) 4.32 MIL/uL (4.5-6.0); RED CELL DISTRIBUTION WIDTH 16.8 % (11.5-15.0); WHITE BLOOD COUNT (AUTO) 6.8 K/uL (4.3-11.0)
[2024-09-24 14:29] LABS: SERUM AMMONIA 17.0 umol/L (11-32)
[2024-09-24 14:49] LABS: ASPARTATE AMINOTRANSFERASE 42.0 U/L (15-37); CALCIUM, SERUM 9.1 mg/dL (8.5-10.1); CREATININE 0.7 mg/dL (0.6-1.3); SODIUM SERUM 134.0 mmol/L (136-145); TOTAL PROTEIN, SERUM 5.7 g/dL (6.4-8.2); UREA NITROGEN, BLOOD 19.0 mg/dL (7-18)
[2024-09-24 17:41] LABS: LYMPHOCYTES % (MANUAL) 12 % (16-48); MONOCYTES % (MANUAL) 2 % (0-11.0); NEUTROPHILS % (MANUAL) 86 (42-76); PLATELET ESTIMATE DECREASED
[2024-09-25] VITALS (12 sets, daily range): BP systolic 101–132; BP diastolic 61–82; TEMP 97.3–98.4; O2SAT 95–99
[2024-09-25 06:58] LABS: PLATELET COUNT (AUTO) 87 K/uL (150-450); RED BLOOD CELL COUNT(AUTO) 4.45 MIL/uL (4.5-6.0); RED CELL DISTRIBUTION WIDTH 16.6 % (11.5-15.0); WHITE BLOOD COUNT (AUTO) 6.7 K/uL (4.3-11.0)
[2024-09-25 07:02] LABS: ASPARTATE AMINOTRANSFERASE 32.0 U/L (15-37); TOTAL PROTEIN, SERUM 5.8 g/dL (6.4-8.2)
[2024-09-25 07:04] LABS: CALCIUM, SERUM 9.2 mg/dL (8.5-10.1); CREATININE 0.6 mg/dL (0.6-1.3); PHOSPHORUS 3.3 mg/dL (2.5-4.9); SODIUM SERUM 141.0 mmol/L (136-145); UREA NITROGEN, BLOOD 17.0 mg/dL (7-18)
[2024-09-25] MEDS: LORAZEPAM 1 MG TABLET PO PRN (09:03)
[2024-09-25 09:21] LABS: LYMPHOCYTES % (MANUAL) 27 % (16-48); MONOCYTES % (MANUAL) 3 % (0-11.0); NEUTROPHILS % (MANUAL) 70 (42-76); PLATELET ESTIMATE DECREASED
[2024-09-25] MEDS ORDERED: METH4TAB17 PO (10:58)
[2024-09-25] MEDS ORDERED: DOXY100T2 PO (10:58)
[2024-09-25] MEDS: MAGNESIUM OXIDE 400 MG TABLET PO ONE (12:08)
[2024-09-25 15:48] LABS: ABG BASE EXCESS 5.3 mmol/L (-2.0-3.0); ABG OXYGEN SATURATION 94.1 % (94.0-98.0); ABG PCO2 41.8 mmHg (35.0-48.0); ABG PH 7.467 (7.350-7.450); ABG PO2 68.8 mmHg (83.0-108.0); ABG TOTAL HEMOGLOBIN 13.9 G/dL (13.5-17.5); FLOW, BLOOD GAS 2.00 L/min (0.00-30.00); FRACTIONATED INSPIRED OXYGEN 28.0 %; SITE, ABG LEFT RADIAL
[2024-09-26] VITALS (7 sets, daily range): BP systolic 115–116; BP diastolic 64–72; TEMP 97.5–97.9; O2SAT 94–99
[2024-09-26 07:46] LABS: CALCIUM, SERUM 9.9 mg/dL (8.5-10.1); CREATININE 0.6 mg/dL (0.6-1.3); SODIUM SERUM 138.0 mmol/L (136-145); UREA NITROGEN, BLOOD 20.0 mg/dL (7-18)
[2024-09-26] MEDS: MAGNESIUM OXIDE 400 MG TABLET PO ONE (10:58)
== END 2024-09-26 19:02 | disposition home health service (06) | DRG 191 ==
LOC: ER 16:13 → TELE 19:36 → MED 09-24 14:25
PROVIDERS: ADMIT Nurse Practitioner Family; ATTEND Nurse Practitioner Acute Care
DX: J44.1 Chronic obstructive pulmonary disease with (acute) exacerbation (principal); F10.139 Alcohol abuse with withdrawal, unspecified; I50.22 Chronic systolic (congestive) heart failure; K70.10 Alcoholic hepatitis without ascites; F10.129 Alcohol abuse with intoxication, unspecified; I11.0 Hypertensive heart disease with heart failure; Z87.19 Personal history of other diseases of the digestive system; Z90.49 Acquired absence of other specified parts of digestive tract; Z79.51 Long term (current) use of inhaled steroids; Z79.899 Other long term (current) drug therapy; F17.200 Nicotine dependence, unspecified, uncomplicated; E78.5 Hyperlipidemia, unspecified; Z82.3 Family history of stroke; Z82.49 Family history of ischemic heart disease and other diseases of the circulatory system; Z83.3 Family history of diabetes mellitus; Y90.4 Blood alcohol level of 80-99 mg/100 ml
CPT/HCPCS: 36415; 36600; 70220-TC; 71045-TC; 76700-TC; 80048-TC; 80076-TC; 82140-TC; 82803-TC; 83735-TC; 83880; 84100-TC; 84484-TC; 85025-TC; 85027-TC; 94760-TC; 94761-TC; 94799-TC; 97116-TC; 97530-TC; A4217; A4223; G0378; G0480; J1650; J2919; J3475

== ENCOUNTER 2024-10-18 12:45 | Inpatient (IN) | payer MEDICARE, BC ==
[2024-10-18] VITALS (7 sets, daily range): BP systolic 140; BP diastolic 82; TEMP 98.6; O2SAT 92–97
[~2024-10-18] VITALS: Ht 165.1 cm; Wt 80.7 kg
[~2024-10-18 12:45] MED LIST changes: +DOXY100T2 PO; +METH4TAB17 PO
[2024-10-18] MEDS ORDERED: ALBUTEROL FS 2.5 MG/3 ML VIAL.NEB ONE (13:10)
[2024-10-18] MEDS ORDERED: IPRATROPIUM NEB FS 0.5 MG/2.5 ML AMPUL.NEB ONE (13:10)
[2024-10-18] MEDS: IPRATROPIUM NEB FS 0.5 MG/2.5 ML AMPUL.NEB NEB ONE (13:21)
[2024-10-18] MEDS: ALBUTEROL FS 2.5 MG/3 ML VIAL.NEB CONTNEB ONE (13:21)
[2024-10-18] MEDS ORDERED: IPRA3AMP23 IH (13:26)
[2024-10-18 13:33] LABS: PLATELET COUNT (AUTO) 165 K/uL (150-450); RED BLOOD CELL COUNT(AUTO) 4.35 MIL/uL (4.5-6.0); RED CELL DISTRIBUTION WIDTH 16.6 % (11.5-15.0); WHITE BLOOD COUNT (AUTO) 6.0 K/uL (4.3-11.0)
[2024-10-18 13:40] LABS: CALCIUM, SERUM 8.8 mg/dL (8.5-10.1); CREATININE 0.7 mg/dL (0.6-1.3); SODIUM SERUM 135 mmol/L (136-145); UREA NITROGEN, BLOOD 12 mg/dL (7-18)
[2024-10-18 13:46] LABS: ASPARTATE AMINOTRANSFERASE 77 U/L (15-37); TOTAL PROTEIN, SERUM 6.7 g/dL (6.4-8.2)
[2024-10-18] MEDS ORDERED: ONDANSETRON HCL/PF 4 MG/2 ML VIAL IVP PRN (14:00)
[2024-10-18] MEDS ORDERED: ACETAMINOPHEN 325 MG TABLET PO PRN (14:00)
[2024-10-18] MEDS: ENOXAPARIN SODIUM 40 MG/0.4 ML DISP.SYRIN SQ SCH (14:00)
[2024-10-18] MEDS ORDERED: ALBUTEROL HALF STRENGTH 1.25 MG/3 ML VIAL.NEB NEB PRN (16:30)
[2024-10-18] MEDS ORDERED: IPRATROPIUM NEB FS 0.5 MG/2.5 ML AMPUL.NEB NEB PRN (16:30)
[2024-10-18] MEDS: CHLORDIAZEPOXIDE HCL 25 MG CAPSULE PO SCH (16:38)
[2024-10-18] MEDS: ALBUTEROL FS 2.5 MG/0.5 ML VIAL.NEB NEB SCH (17:24)
[2024-10-18] MEDS: IPRATROPIUM NEB FS 0.5 MG/2.5 ML AMPUL.NEB NEB SCH (17:24)
[2024-10-19] VITALS (10 sets, daily range): BP systolic 123–169; BP diastolic 61–80; TEMP 97.9–98.8; O2SAT 93–98
[2024-10-19 06:35] LABS: ABG BASE EXCESS 6.3 mmol/L (-2.0-3.0); ABG OXYGEN SATURATION 91.8 % (94.0-98.0); ABG PCO2 45.7 mmHg (35.0-48.0); ABG PH 7.452 (7.350-7.450); ABG PO2 64.3 mmHg (83.0-108.0); ABG TOTAL HEMOGLOBIN 14.1 G/dL (13.5-17.5); FLOW, BLOOD GAS 3.00 L/min (0.00-30.00); SITE, ABG LEFT RADIAL
[2024-10-19 06:40] LABS: CALCIUM, SERUM 8.7 mg/dL (8.5-10.1); CREATININE 0.7 mg/dL (0.6-1.3); PHOSPHORUS 2.6 mg/dL (2.5-4.9); PLATELET COUNT (AUTO) 124 K/uL (150-450); RED BLOOD CELL COUNT(AUTO) 4.36 MIL/uL (4.5-6.0); RED CELL DISTRIBUTION WIDTH 16.5 % (11.5-15.0); SODIUM SERUM 143.0 mmol/L (136-145); UREA NITROGEN, BLOOD 10.0 mg/dL (7-18); WHITE BLOOD COUNT (AUTO) 4.6 K/uL (4.3-11.0)
[2024-10-19] MEDS: FOLIC ACID 1 MG TABLET PO SCH (08:25)
[2024-10-19] MEDS: THIAMINE HCL 100 MG TABLET PO SCH (08:25)
[2024-10-19] MEDS: PANTOPRAZOLE 40 MG TABLET.DR PO SCH (08:25)
[2024-10-19] MEDS: LEVOFLOXACIN (250MG) 250 MG TABLET PO SCH (09:41)
[2024-10-20] VITALS (17 sets, daily range): BP systolic 124–142; BP diastolic 59–73; TEMP 97.7–97.9; O2SAT 93–98
[2024-10-21] VITALS (17 sets, daily range): BP systolic 123–132; BP diastolic 67–90; TEMP 97.7–98.2; O2SAT 94–99
[2024-10-22] VITALS (11 sets, daily range): BP systolic 121–122; BP diastolic 81–97; TEMP 97.3–98.2; O2SAT 93–99
[2024-10-22] MEDS ORDERED: LEVO250T59 PO (09:26)
[2024-10-23 07:46] VITALS: O2SAT 95
[2024-10-23 08:02] VITALS: O2SAT 98
[2024-10-23 08:49] VITALS: BP 130/90; TEMP 97.5; O2SAT 95
[2024-10-23 10:35] VITALS: O2SAT 95
[2024-10-23 10:47] VITALS: O2SAT 98
[2024-10-25 06:10] LABS: FOLIC ACID > 20.0 ng/mL (>3.0)
== END 2024-10-23 12:36 | disposition home health service (06) | DRG 166 ==
LOC: ER 12:47 → TELE 14:46 → MED 10-20 22:26
PROVIDERS: ADMIT Nurse Practitioner Acute Care; ATTEND Nurse Practitioner Acute Care
PROC: 0JBH0ZZ Excision of Left Lower Arm Subcutaneous Tissue and Fascia, Open Approach (ICD-10-PCS; principal; 2024-10-19)
DX: J44.1 Chronic obstructive pulmonary disease with (acute) exacerbation (principal); J96.01 Acute respiratory failure with hypoxia; I42.9 Cardiomyopathy, unspecified; I50.22 Chronic systolic (congestive) heart failure; K70.10 Alcoholic hepatitis without ascites; E66.9 Obesity, unspecified; L85.3 Xerosis cutis; S51.802A Unspecified open wound of left forearm, initial encounter; X58.XXXA Exposure to other specified factors, initial encounter; Y92.009 Unspecified place in unspecified non-institutional (private) residence as the place of occurrence of the external cause; Z20.822 Contact with and (suspected) exposure to COVID-19; E78.5 Hyperlipidemia, unspecified; E83.42 Hypomagnesemia; I11.0 Hypertensive heart disease with heart failure; Z87.19 Personal history of other diseases of the digestive system; Z90.49 Acquired absence of other specified parts of digestive tract; Z79.51 Long term (current) use of inhaled steroids; Z79.899 Other long term (current) drug therapy; Z82.3 Family history of stroke; Z82.49 Family history of ischemic heart disease and other diseases of the circulatory system; Z83.3 Family history of diabetes mellitus; I25.2 Old myocardial infarction; F17.210 Nicotine dependence, cigarettes, uncomplicated; R23.3 Spontaneous ecchymoses; G47.33 Obstructive sleep apnea (adult) (pediatric); F10.20 Alcohol dependence, uncomplicated; Y90.9 Presence of alcohol in blood, level not specified
CPT/HCPCS: 36415; 70220-TC; 70450-TC; 71045-TC; 80048-TC; 80076-TC; 82607-TC; 83735-TC; 83880; 83921; 84100-TC; 84425; 84443-TC; 84484-TC; 85025-TC; 87081-TC; 93307-TC; 94760-TC; 94762-TC; 94799-TC; 97110-TC; 97116-TC; 97530-TC; A6253; A6254; G0378; J1650; J2919

== ENCOUNTER 2024-10-27 16:21 | Inpatient (IN) | payer MEDICARE, BC ==
[~2024-10-27] VITALS: Ht 165.1 cm; Wt 81.6 kg
[2024-10-27] VITALS (7 sets, daily range): BP systolic 118; BP diastolic 65; TEMP 98; O2SAT 96–100
[~2024-10-27 16:21] MED LIST changes: -DOXY100T2 PO; +LEVO250T59 PO
[2024-10-27] MEDS: ALBUTEROL FS 2.5 MG/3 ML VIAL.NEB NEB ONE (16:42)
[2024-10-27] MEDS: IPRATROPIUM NEB FS 0.5 MG/2.5 ML AMPUL.NEB NEB ONE (16:42)
[2024-10-27] MEDS ORDERED: IPRATROPIUM NEB FS 0.5 MG/2.5 ML AMPUL.NEB ONE (16:45)
[2024-10-27] MEDS ORDERED: ALBUTEROL FS 2.5 MG/3 ML VIAL.NEB ONE (16:45)
[2024-10-27] MEDS ORDERED: Magnesium 1GM/D5W 100ML PREMIX 200 ML IV ONE (16:49)
[2024-10-27 16:51] LABS: ABG BASE EXCESS 6.4 mmol/L (-2.0-3.0); ABG OXYGEN SATURATION 95.9 % (94.0-98.0); ABG PCO2 44.9 mmHg (35.0-48.0); ABG PH 7.459 (7.350-7.450); ABG PO2 82.4 mmHg (83.0-108.0); ABG TOTAL HEMOGLOBIN 14.3 G/dL (13.5-17.5); FLOW, BLOOD GAS 6.00 L/min (0.00-30.00); FRACTIONATED INSPIRED OXYGEN 44.0 %; SITE, ABG LEFT RADIAL
[2024-10-27 16:54] LABS: PLATELET COUNT (AUTO) 170 K/uL (150-450); RED BLOOD CELL COUNT(AUTO) 4.44 MIL/uL (4.5-6.0); RED CELL DISTRIBUTION WIDTH 15.7 % (11.5-15.0); WHITE BLOOD COUNT (AUTO) 5.2 K/uL (4.3-11.0)
[2024-10-27] MEDS: Magnesium 1GM/D5W 100ML PREMIX 200 ML IV ONE (17:00)
[2024-10-27 17:03] LABS: CALCIUM, SERUM 8.9 mg/dL (8.5-10.1); CREATININE 0.6 mg/dL (0.6-1.3); SODIUM SERUM 139 mmol/L (136-145); UREA NITROGEN, BLOOD 16 mg/dL (7-18)
[2024-10-27 17:09] LABS: ASPARTATE AMINOTRANSFERASE 17 U/L (15-37); TOTAL PROTEIN, SERUM 6.5 g/dL (6.4-8.2)
[2024-10-27 17:11] LABS: LACTIC ACID 1.0 mmol/L (0.4-2.0)
[2024-10-27] MEDS ORDERED: IOHEXOL-300 100 ML VIAL IV ONE (17:17)
[2024-10-27] MEDS ORDERED: IV NS 0.9% 250 ML IV ONE (17:18)
[2024-10-27] MEDS ORDERED: hydrALAZINE HCL IV 20 MG VIAL IV PRN (18:00)
[2024-10-27] MEDS ORDERED: ALBUTEROL FS 2.5 MG/0.5 ML VIAL.NEB NEB PRN (18:00)
[2024-10-27] MEDS ORDERED: ONDANSETRON HCL/PF 4 MG/2 ML VIAL IVP PRN (18:00)
[2024-10-27] MEDS ORDERED: IPRATROPIUM NEB FS 0.5 MG/2.5 ML AMPUL.NEB NEB PRN (18:30)
[2024-10-27 18:58] LABS: AMPHETAMINE, URINE NEGATIVE (NEGATIVE); BARBITURATE, URINE NEGATIVE (NEGATIVE); BENZODIAZEPINE, URINE POSITIVE (NEGATIVE); CANNABINOID, URINE NEGATIVE (NEGATIVE); COCCAINE, URINE NEGATIVE (NEGATIVE); OPIATE, URINE NEGATIVE (NEGATIVE)
[2024-10-27] MEDS: CHLORDIAZEPOXIDE HCL 25 MG CAPSULE PO SCH (20:06)
[2024-10-27] MEDS: ATORVASTATIN 40 MG TABLET PO SCH (20:06)
[2024-10-27] MEDS: ALBUTEROL FS 2.5 MG/3 ML VIAL.NEB NEB SCH (20:44)
[2024-10-27] MEDS: IPRATROPIUM NEB FS 0.5 MG/2.5 ML AMPUL.NEB NEB SCH (20:44)
[2024-10-27] MEDS: HEPARIN SODIUM, PORCINE 5000 UNITS/1 ML VIAL SQ SCH (20:55)
[2024-10-27] MEDS ORDERED: Medication Not On Formulary EA (Ipratropium/Albuterol Sulfate (Duoneb 2.5-0.5 Mg/3 Ml So IH SCH (21:00)
[2024-10-28] VITALS (17 sets, daily range): BP systolic 106–134; BP diastolic 51–73; TEMP 97.2–98.8; O2SAT 93–98
[2024-10-28 06:39] LABS: PLATELET COUNT (AUTO) 172 K/uL (150-450); RED BLOOD CELL COUNT(AUTO) 4.16 MIL/uL (4.5-6.0); RED CELL DISTRIBUTION WIDTH 15.5 % (11.5-15.0); WHITE BLOOD COUNT (AUTO) 4.3 K/uL (4.3-11.0)
[2024-10-28 07:25] LABS: ASPARTATE AMINOTRANSFERASE 13.0 U/L (15-37); CALCIUM, SERUM 8.6 mg/dL (8.5-10.1); CREATININE 0.9 mg/dL (0.6-1.3); PHOSPHORUS 3.2 mg/dL (2.5-4.9); SODIUM SERUM 141.0 mmol/L (136-145); TOTAL PROTEIN, SERUM 6.3 g/dL (6.4-8.2); UREA NITROGEN, BLOOD 18.0 mg/dL (7-18)
[2024-10-28] MEDS: PANTOPRAZOLE 40 MG TABLET.DR PO SCH (07:40)
[2024-10-28] MEDS: MULTIVIT W/MINERALS 1 TAB TABLET PO SCH (09:07)
[2024-10-28] MEDS: ATENOLOL 50 MG TABLET PO SCH (09:07)
[2024-10-28] MEDS: THIAMINE HCL 100 MG TABLET PO SCH (09:08)
[2024-10-28] MEDS: LEVOFLOXACIN (250MG) 250 MG TABLET PO SCH (10:22)
[2024-10-28] MEDS: MORPHINE SULFATE INJ 2 MG/ML DISP.SYRIN IV PRN (21:56)
[2024-10-29] VITALS (14 sets, daily range): BP systolic 112–145; BP diastolic 65–75; TEMP 97.2–98.2; O2SAT 95–100
[2024-10-29] MEDS: ACETAMINOPHEN 325 MG TABLET PO PRN (02:42)
[2024-10-29] MEDS ORDERED: LEVO250T59 PO (07:49)
[2024-10-29] MEDS ORDERED: PRED20TA PO (07:49)
[2024-10-30] VITALS (13 sets, daily range): BP systolic 118–137; BP diastolic 62–76; TEMP 97.9–98.9; O2SAT 95–100
[2024-10-31] VITALS (8 sets, daily range): BP systolic 121–145; BP diastolic 68–75; TEMP 98.1–98.2; O2SAT 93–99
== END 2024-10-31 21:44 | DRG 190 ==
LOC: ER 17:02 → TELE1 18:22 → MEDSG1 10-30 09:55
PROVIDERS: ADMIT Internal Medicine; ATTEND Internal Medicine
DX: J44.1 Chronic obstructive pulmonary disease with (acute) exacerbation (principal); J96.21 Acute and chronic respiratory failure with hypoxia; I50.22 Chronic systolic (congestive) heart failure; F10.139 Alcohol abuse with withdrawal, unspecified; K70.10 Alcoholic hepatitis without ascites; I11.0 Hypertensive heart disease with heart failure; Y90.0 Blood alcohol level of less than 20 mg/100 ml; E78.5 Hyperlipidemia, unspecified; Z87.19 Personal history of other diseases of the digestive system; Z90.49 Acquired absence of other specified parts of digestive tract; Z72.0 Tobacco use; S51.812A Laceration without foreign body of left forearm, initial encounter; Y92.9 Unspecified place or not applicable; X58.XXXA Exposure to other specified factors, initial encounter; Z79.899 Other long term (current) drug therapy; Z82.3 Family history of stroke; Z82.49 Family history of ischemic heart disease and other diseases of the circulatory system; Z83.3 Family history of diabetes mellitus; Z99.81 Dependence on supplemental oxygen
CPT/HCPCS: 36415; 36600; 70450-TC; 71045-TC; 71260-TC; 72125-TC; 80048-TC; 80053-TC; 80076-TC; 82803-TC; 83605-TC; 83735-TC; 83880; 84100-TC; 84484-TC; 85025-TC; 87040-TC; 87081-TC; 94760-TC; 94762-TC; 94799-TC; 97110-TC; 97112-TC; 97116-TC; 97530-TC; A4223; A6254; G0378; G0480; J1644; J2270; J2919; J3475; J7050; Q9967

== ENCOUNTER 2024-12-22 17:20 | Inpatient (IN) | payer MEDICARE, BC ==
[~2024-12-22] VITALS: Ht 172.7 cm; Wt 84.6 kg
[~2024-12-22 17:20] MED LIST changes: -METH4TAB17 PO; +PRED20TA PO
[2024-12-22] MEDS ORDERED: ALBUTEROL FS 2.5 MG/0.5 ML VIAL.NEB ONE (17:50)
[2024-12-22] MEDS ORDERED: IPRATROPIUM NEB FS 0.5 MG/2.5 ML AMPUL.NEB ONE (17:50)
[2024-12-22] MEDS: IPRATROPIUM NEB FS 0.5 MG/2.5 ML AMPUL.NEB NEB ONE (17:55)
[2024-12-22 17:56] VITALS: O2SAT 94
[2024-12-22] MEDS: ALBUTEROL FS 2.5 MG/0.5 ML VIAL.NEB NEB ONE (17:56)
[2024-12-22 17:59] LABS: PLATELET COUNT (AUTO) 183 K/uL (150-450); RED BLOOD CELL COUNT(AUTO) 4.54 MIL/uL (4.5-6.0); RED CELL DISTRIBUTION WIDTH 15.0 % (11.5-15.0); WHITE BLOOD COUNT (AUTO) 8.0 K/uL (4.3-11.0)
[2024-12-22 18:06] VITALS: O2SAT 97
[2024-12-22 18:06] LABS: CALCIUM, SERUM 9.3 mg/dL (8.5-10.1); CREATININE 1.6 mg/dL (0.6-1.3); SODIUM SERUM 134 mmol/L (136-145); UREA NITROGEN, BLOOD 32 mg/dL (7-18)
[2024-12-22 18:07] VITALS: O2SAT 94
[2024-12-22 18:15] LABS: LACTIC ACID 1.2 mmol/L (0.4-2.0)
[2024-12-22 18:17] VITALS: O2SAT 97
[2024-12-22] MEDS ORDERED: AZITHROMYCIN 250 MG TABLET ONE (18:29)
[2024-12-22] MEDS: AZITHROMYCIN 250 MG TABLET PO ONE (19:00)
[2024-12-22] MEDS: FUROSEMIDE 40 MG/4 ML VIAL IV ONE (19:30)
[2024-12-22] MEDS ORDERED: ONDANSETRON HCL/PF 4 MG/2 ML VIAL IVP PRN (21:30)
[2024-12-22] MEDS ORDERED: IPRATROPIUM NEB FS 0.5 MG/2.5 ML AMPUL.NEB NEB PRN (21:30)
[2024-12-22] MEDS ORDERED: ALBUTEROL FS 2.5 MG/3 ML VIAL.NEB NEB PRN (21:30)
[2024-12-22] MEDS ORDERED: MAG HYDROX/AL HYDROX/SIMETH 30 ML UDC PO PRN (21:30)
[2024-12-22] MEDS ORDERED: Z GUARD REMEDY 4 OZ OINT TP PRN (21:30)
[2024-12-22] MEDS ORDERED: ACETAMINOPHEN 325 MG TABLET PO PRN (21:30)
[2024-12-22] MEDS ORDERED: MAGNESIUM HYDROXIDE 30 ML UDC PO PRN (21:30)
[2024-12-22 22:30] VITALS: BP 144/90; TEMP 98.6; O2SAT 98
[2024-12-23] VITALS: BP 141/85; TEMP 98.2; O2SAT 96
[2024-12-23] MEDS ORDERED: GABA-536 PO (07:54)
[2024-12-23] MEDS ORDERED: HYDR-4303 PO (07:54)
[2024-12-23] MEDS ORDERED: ALBU18HF2 IH (07:54)
[2024-12-23 08:00] VITALS: BP 159/84; TEMP 97.6; O2SAT 96
[2024-12-23] MEDS: PANTOPRAZOLE 40 MG TABLET.DR PO SCH (08:11)
[2024-12-23 08:41] LABS: PLATELET COUNT (AUTO) 187 K/uL (150-450); RED BLOOD CELL COUNT(AUTO) 4.71 MIL/uL (4.5-6.0); RED CELL DISTRIBUTION WIDTH 14.8 % (11.5-15.0); WHITE BLOOD COUNT (AUTO) 6.2 K/uL (4.3-11.0)
[2024-12-23 08:42] LABS: CALCIUM, SERUM 9.5 mg/dL (8.5-10.1); CREATININE 0.7 mg/dL (0.6-1.3); PHOSPHORUS 3.1 mg/dL (2.5-4.9); SODIUM SERUM 139.0 mmol/L (136-145); UREA NITROGEN, BLOOD 14.0 mg/dL (7-18)
[2024-12-23 08:44] LABS: LDL 61.0 mg/dL (0-99)
[2024-12-23] MEDS ORDERED: LEVOFLOXACIN (250MG) 250 MG TABLET PO SCH (09:00)
[2024-12-23] MEDS: LEVOFLOXACIN (250MG) 250 MG TABLET PO SCH (09:57)
[2024-12-23 12:00] VITALS: BP 137/95; TEMP 98; O2SAT 96
[2024-12-23] MEDS ORDERED: Medication Not On Formulary EA (Ipratropium/Albuterol Sulfate (Duoneb 2.5-0.5 Mg/3 Ml So IH PRN (15:30)
[2024-12-23 15:34] LABS: CREATININE, URINE 120.5 MG/DL (30.0-125.0); URINE SODIUM, RANDOM 34.0 mmol/l (40-220); URINE TOTAL PROTEIN 14.6 mg/dL (0-11.9)
[2024-12-23 15:44] LABS: APPEARANCE,URINE CLEAR (CLEAR); BLOOD, URINE NEGATIVE Ery/uL (NEGATIVE); LEUKOCYTE ESTERASE ,URINE NEGATIVE (NEGATIVE); NITRITE, URINE NEGATIVE (NEGATIVE); UGLUCOSE 2+ mg/dL (NEGATIVE)
[2024-12-23] MEDS ORDERED: ALBUTEROL FS 2.5 MG/3 ML VIAL.NEB NEB PRN (15:44)
[2024-12-23] MEDS ORDERED: IPRATROPIUM NEB FS 0.5 MG/2.5 ML AMPUL.NEB NEB PRN (15:44)
[2024-12-23 15:47] LABS: ADD URINE CULTURE YES; SQUAMOUS EPITHELIAL CELL,UR Few /HPF (None Seen)
[2024-12-23 15:59] LABS: EOSINOPHIL,URINE None Seen
[2024-12-23 16:00] VITALS: BP 125/72; TEMP 98.2; O2SAT 96
[2024-12-23] MEDS: ATORVASTATIN 40 MG TABLET PO SCH (17:06)
[2024-12-23] MEDS: GABAPENTIN 400 MG CAPSULE PO SCH (17:06)
[2024-12-23] MEDS: ENSURE ENLIVE 237 ML LIQUID (VANILLA) PO SCH (17:33)
[2024-12-23 20:00] VITALS: BP 130/80; TEMP 98.8; O2SAT 95
[2024-12-24] VITALS (9 sets, daily range): BP systolic 118–143; BP diastolic 64–97; TEMP 97.3–98.9; O2SAT 94–100
[2024-12-24] MEDS ORDERED: PANTOPRAZOLE 40 MG TABLET.DR PO SCH (07:30)
[2024-12-24] MEDS: ALBUTEROL FS 2.5 MG/3 ML VIAL.NEB NEB SCH (07:35)
[2024-12-24] MEDS: IPRATROPIUM NEB FS 0.5 MG/2.5 ML AMPUL.NEB NEB SCH (07:35)
[2024-12-24 07:56] LABS: PLATELET COUNT (AUTO) 193 K/uL (150-450); RED BLOOD CELL COUNT(AUTO) 4.53 MIL/uL (4.5-6.0); RED CELL DISTRIBUTION WIDTH 15.0 % (11.5-15.0); WHITE BLOOD COUNT (AUTO) 9.8 K/uL (4.3-11.0)
[2024-12-24] MEDS: THIAMINE HCL 100 MG TABLET PO SCH (08:12)
[2024-12-24] MEDS: ATENOLOL 50 MG TABLET PO SCH (08:13)
[2024-12-24] MEDS: MULTIVIT W/MINERALS 1 TAB TABLET PO SCH (08:13)
[2024-12-24 08:44] LABS: ASPARTATE AMINOTRANSFERASE 35.0 U/L (15-37); CALCIUM, SERUM 9.4 mg/dL (8.5-10.1); CREATININE 0.8 mg/dL (0.6-1.3); PHOSPHORUS 3.0 mg/dL (2.5-4.9); SODIUM SERUM 140.0 mmol/L (136-145); TOTAL PROTEIN, SERUM 6.3 g/dL (6.4-8.2); UREA NITROGEN, BLOOD 15.0 mg/dL (7-18)
[2024-12-24 08:46] LABS: CREATINE KINASE, TOTAL 88.0 U/L (39-308)
[2024-12-24] MEDS: POLYETHYLENE GLYCOL 3350 17 GM POWD.PACK PO PRN (12:17)
[2024-12-25] VITALS (12 sets, daily range): BP systolic 113–122; BP diastolic 64–70; TEMP 97.5–99.1; O2SAT 94–100
[2024-12-25 10:01] LABS: ABG BASE EXCESS 4.0 mmol/L (-2.0-3.0); ABG OXYGEN SATURATION 95.9 % (94.0-98.0); ABG PCO2 45.7 mmHg (35.0-48.0); ABG PH 7.422 (7.350-7.450); ABG PO2 85.8 mmHg (83.0-108.0); ABG TOTAL HEMOGLOBIN 14.0 G/dL (13.5-17.5); FLOW, BLOOD GAS 2.00 L/min (0.00-30.00); SITE, ABG RIGHT RADIAL
[2024-12-25] MEDS: ENOXAPARIN SODIUM 40 MG/0.4 ML DISP.SYRIN SQ SCH (10:53)
[2024-12-26] VITALS (8 sets, daily range): BP systolic 113–141; BP diastolic 53–75; TEMP 97.3–98.1; O2SAT 93–100
[2024-12-26 01:07] LABS: PTH, INTACT 21 pg/mL (15-65)
[2024-12-26] MEDS: METHOCARBAMOL (500MG) 500 MG TABLET PO SCH (12:54)
[2024-12-26] MEDS: LACTULOSE 10 G/15 ML UDC (PYXIS) PO SCH (13:33)
[2024-12-26] MEDS: SENNOSIDES 8.6 MG TABLET PO SCH (21:12)
[2024-12-27] VITALS (7 sets, daily range): BP systolic 106–132; BP diastolic 61–72; TEMP 97.5–99; O2SAT 95–98
[2024-12-27] MEDS: HYDROCODONE/APAP 5/325MG TABLET PO PRN (01:35)
[2024-12-27 07:42] LABS: PLATELET COUNT (AUTO) 185 K/uL (150-450); RED BLOOD CELL COUNT(AUTO) 4.50 MIL/uL (4.5-6.0); RED CELL DISTRIBUTION WIDTH 14.3 % (11.5-15.0); WHITE BLOOD COUNT (AUTO) 8.1 K/uL (4.3-11.0)
[2024-12-27 07:46] LABS: CALCIUM, SERUM 9.5 mg/dL (8.5-10.1); CREATININE 0.8 mg/dL (0.6-1.3); PHOSPHORUS 4.7 mg/dL (2.5-4.9); SODIUM SERUM 135.0 mmol/L (136-145); UREA NITROGEN, BLOOD 22.0 mg/dL (7-18)
== END 2024-12-27 19:02 | DRG 189 ==
LOC: ER 17:24 → TELE1 21:43 → MEDSG1 12-23 10:01
PROVIDERS: ADMIT Nurse Practitioner Acute Care; ATTEND Nurse Practitioner Family
DX: J96.01 Acute respiratory failure with hypoxia (principal); I50.43 Acute on chronic combined systolic (congestive) and diastolic (congestive) heart failure; N17.0 Acute kidney failure with tubular necrosis; I13.0 Hypertensive heart and chronic kidney disease with heart failure and stage 1 through stage 4 chronic kidney disease, or unspecified chronic kidney disease; J44.1 Chronic obstructive pulmonary disease with (acute) exacerbation; N18.9 Chronic kidney disease, unspecified; F10.11 Alcohol abuse, in remission; E66.9 Obesity, unspecified; K70.9 Alcoholic liver disease, unspecified; N13.9 Obstructive and reflux uropathy, unspecified; F17.200 Nicotine dependence, unspecified, uncomplicated; K21.9 Gastro-esophageal reflux disease without esophagitis; Z90.49 Acquired absence of other specified parts of digestive tract; Z79.51 Long term (current) use of inhaled steroids; Z79.899 Other long term (current) drug therapy; E78.5 Hyperlipidemia, unspecified; K59.00 Constipation, unspecified; Z87.19 Personal history of other diseases of the digestive system; Z82.3 Family history of stroke; Z82.49 Family history of ischemic heart disease and other diseases of the circulatory system; Z83.3 Family history of diabetes mellitus; Z68.28 Body mass index [BMI] 28.0-28.9, adult
CPT/HCPCS: 36415; 36600; 71045-TC; 76770-TC; 80048-TC; 80053-TC; 80061-TC; 81001; 82550-TC; 82570-TC; 82803-TC; 83605-TC; 83735-TC; 83880; 83970; 84100-TC; 84155; 84165; 84300-TC; 84484-TC; 85025-TC; 87040-TC; 87086-TC; 94760-TC; 94799-TC; G0378; J1650; J1938; J2919

== ENCOUNTER 2025-01-27 08:04 | Inpatient (IN) | payer MEDICARE, BC ==
[~2025-01-27] VITALS: Ht 165.1 cm; Wt 80.7 kg
[~2025-01-27 08:04] MED LIST changes: +ALBU18HF2 IH; +GABA-536 PO; +HYDR-4303 PO; -LEVO250T59 PO; -PRED20TA PO
[2025-01-27] MEDS ORDERED: ALBUTEROL FS 2.5 MG/3 ML VIAL.NEB ONE (08:26)
[2025-01-27] MEDS ORDERED: IPRATROPIUM NEB FS 0.5 MG/2.5 ML AMPUL.NEB ONE (08:26)
[2025-01-27 08:31] VITALS: O2SAT 93
[2025-01-27] MEDS: IPRATROPIUM NEB FS 0.5 MG/2.5 ML AMPUL.NEB NEB ONE (08:31)
[2025-01-27] MEDS: ALBUTEROL FS 2.5 MG/3 ML VIAL.NEB NEB ONE (08:31)
[2025-01-27] MEDS ORDERED: Magnesium 1GM/D5W 100ML PREMIX 100 ML IV ONE ×2 (08:34→09:41)
[2025-01-27 08:39] LABS: PLATELET COUNT (AUTO) 200 K/uL (150-450); RED BLOOD CELL COUNT(AUTO) 5.02 MIL/uL (4.5-6.0); RED CELL DISTRIBUTION WIDTH 14.6 % (11.5-15.0); WHITE BLOOD COUNT (AUTO) 8.0 K/uL (4.3-11.0)
[2025-01-27] MEDS: Magnesium 1GM/D5W 100ML PREMIX 200 ML IV ONE (08:40)
[2025-01-27] MEDS: IV NS 0.9% 500 ML BAG IV ONE (08:49)
[2025-01-27 08:58] LABS: CALCIUM, SERUM 8.5 mg/dL (8.5-10.1); CREATININE 0.7 mg/dL (0.6-1.3); SODIUM SERUM 135 mmol/L (136-145); UREA NITROGEN, BLOOD 15 mg/dL (7-18)
[2025-01-27 09:09] LABS: LACTIC ACID 4.3 mmol/L (0.4-2.0)
[2025-01-27 09:14] VITALS: O2SAT 98
[2025-01-27] MEDS ORDERED: DEXTROSE 50%-WATER 50 ML DISP.SYRIN ONE (09:17)
[2025-01-27] MEDS: IV NS 0.9% 1,000 ML BAG IV ONE (09:25)
[2025-01-27] MEDS: DEXTROSE 50%-WATER 50 ML DISP.SYRIN IVP ONE (09:25)
[2025-01-27] MEDS ORDERED: ONDANSETRON HCL/PF 4 MG/2 ML VIAL IVP PRN (11:00)
[2025-01-27] MEDS ORDERED: ACETAMINOPHEN 325 MG TABLET PO PRN (11:00)
[2025-01-27] MEDS ORDERED: Z GUARD REMEDY 4 OZ OINT TP PRN (11:00)
[2025-01-27] MEDS: AZITHROMYCIN 250 MG TABLET PO ONE (11:41)
[2025-01-27] MEDS: IV LR 1000 ML 1,000 ML IV SCH (11:41)
[2025-01-27 12:06] LABS: LACTIC ACID REFLEX 7.9 mmol/L (0.4-1.9)
[2025-01-27] MEDS: AZITHROMYCIN 500 MG in IV D5W 250 ML IV ONE (12:24)
[2025-01-27] MEDS: CEFTRIAXONE 1 G in IV D5W 50 ML IV ONE (12:24)
[2025-01-27] MEDS: ENOXAPARIN SODIUM 40 MG/0.4 ML DISP.SYRIN SQ SCH (12:25)
[2025-01-27] MEDS: ALBUTEROL FS 2.5 MG/3 ML VIAL.NEB NEB SCH (13:26)
[2025-01-27] MEDS: IPRATROPIUM NEB FS 0.5 MG/2.5 ML AMPUL.NEB NEB SCH (13:26)
[2025-01-27] MEDS ORDERED: FLUT1BLS INH (14:31)
[2025-01-27] MEDS ORDERED: OMEP20CA15 PO (14:31)
[2025-01-27 16:17] VITALS: O2SAT 95
[2025-01-27 16:32] VITALS: O2SAT 98
[2025-01-27 20:00] VITALS: BP 155/83; TEMP 98.2; O2SAT 99
[2025-01-27 21:00] VITALS: BP 155/83; TEMP 98.2; O2SAT 99
[2025-01-28] VITALS (18 sets, daily range): BP systolic 135–155; BP diastolic 65–83; TEMP 98–98.2; O2SAT 91–99
[2025-01-28] MEDS: PANTOPRAZOLE 40 MG TABLET.DR PO SCH (08:19)
[2025-01-28 08:43] LABS: PLATELET COUNT (AUTO) 149 K/uL (150-450); RED BLOOD CELL COUNT(AUTO) 4.32 MIL/uL (4.5-6.0); RED CELL DISTRIBUTION WIDTH 15.2 % (11.5-15.0); WHITE BLOOD COUNT (AUTO) 6.6 K/uL (4.3-11.0)
[2025-01-28 09:08] LABS: CALCIUM, SERUM 8.6 mg/dL (8.5-10.1); CREATININE 0.6 mg/dL (0.6-1.3); PHOSPHORUS 2.2 mg/dL (2.5-4.9); SODIUM SERUM 141.0 mmol/L (136-145); UREA NITROGEN, BLOOD 14.0 mg/dL (7-18)
[2025-01-28 09:12] LABS: LDL 30.0 mg/dL (0-99)
[2025-01-28] MEDS ORDERED: HYDROCODONE/APAP 10/325MG TABLET PO PRN (09:30)
[2025-01-28] MEDS: THIAMINE HCL 100 MG TABLET PO SCH (09:37)
[2025-01-28] MEDS: GABAPENTIN 400 MG CAPSULE PO SCH (09:37)
[2025-01-28] MEDS: ATENOLOL 50 MG TABLET PO SCH (09:37)
[2025-01-28 10:06] LABS: LACTIC ACID 5.2 mmol/L (0.4-2.0)
[2025-01-28] MEDS: FLUTICASONE/VILANTEROL 1 EACH BLST.W.DEV IH SCH (11:06)
[2025-01-28] MEDS: AZITHROMYCIN 250 MG TABLET PO SCH (11:06)
[2025-01-28] MEDS: NEUTRA PHOS 1 POWD.PACKET PO ONE (13:06)
[2025-01-28] MEDS: ATORVASTATIN 40 MG TABLET PO SCH (19:15)
[2025-01-28 19:37] LABS: ABG BASE EXCESS 3.5 mmol/L (-2.0-3.0); ABG OXYGEN SATURATION 95.5 % (94.0-98.0); ABG PCO2 42.6 mmHg (35.0-48.0); ABG PH 7.438 (7.350-7.450); ABG PO2 80.8 mmHg (83.0-108.0); ABG TOTAL HEMOGLOBIN 14.0 G/dL (13.5-17.5); FLOW, BLOOD GAS 2.00 L/min (0.00-30.00); FRACTIONATED INSPIRED OXYGEN 28.0 %
[2025-01-29] VITALS (9 sets, daily range): BP systolic 136–141; BP diastolic 60–88; TEMP 98.1–98.4; O2SAT 93–100
[2025-01-29 07:20] LABS: PLATELET COUNT (AUTO) 139 K/uL (150-450); RED BLOOD CELL COUNT(AUTO) 4.24 MIL/uL (4.5-6.0); RED CELL DISTRIBUTION WIDTH 14.9 % (11.5-15.0); WHITE BLOOD COUNT (AUTO) 8.0 K/uL (4.3-11.0)
[2025-01-29 07:30] LABS: CALCIUM, SERUM 8.5 mg/dL (8.5-10.1); CREATININE 0.8 mg/dL (0.6-1.3); PHOSPHORUS 3.3 mg/dL (2.5-4.9); SODIUM SERUM 140.0 mmol/L (136-145); UREA NITROGEN, BLOOD 20.0 mg/dL (7-18)
[2025-01-29] MEDS: ALBUTEROL FS 2.5 MG/3 ML VIAL.NEB NEB SCH (10:30)
[2025-01-29] MEDS: IPRATROPIUM NEB FS 0.5 MG/2.5 ML AMPUL.NEB NEB SCH (10:30)
[2025-01-29 13:43] LABS: LACTIC ACID 3.6 mmol/L (0.4-2.0)
[2025-01-29] MEDS: MULTIVITAMINS,THERAGRAN 1 UDTAB TABLET PO SCH (14:19)
[2025-01-29] MEDS ORDERED: SORBITOL SOLUTION 70% 30 ML SOLUTION PO PRN (15:00)
[2025-01-29] MEDS: LACTULOSE 10 G/15 ML UDC (PYXIS) PR ONE (15:05)
[2025-01-29] MEDS: SENNOSIDES 8.6 MG TABLET PO SCH (15:05)
[2025-01-29 15:58] LABS: APPEARANCE,URINE CLEAR (CLEAR); BLOOD, URINE NEGATIVE Ery/uL (NEGATIVE); LEUKOCYTE ESTERASE ,URINE NEGATIVE (NEGATIVE); NITRITE, URINE NEGATIVE (NEGATIVE); UGLUCOSE NEGATIVE (NEGATIVE)
[2025-01-29 16:35] LABS: LACTIC ACID REFLEX 1.7 mmol/L (0.4-1.9)
[2025-01-30] VITALS (9 sets, daily range): BP systolic 130–149; BP diastolic 60–83; TEMP 97.5–98.2; O2SAT 95–100
[2025-01-30] MEDS ORDERED: PRED50TA PO (09:27)
[2025-01-30] MEDS ORDERED: AZIT250T PO (09:27)
== END 2025-01-30 15:35 | disposition home health service (06) | DRG 190 ==
LOC: ER 08:16 → TELE1 09:39 → MEDSG1 12:05
PROVIDERS: ADMIT Nurse Practitioner Acute Care; ATTEND Internal Medicine
DX: J44.1 Chronic obstructive pulmonary disease with (acute) exacerbation (principal); J96.21 Acute and chronic respiratory failure with hypoxia; E87.20 Acidosis, unspecified; D69.2 Other nonthrombocytopenic purpura; I11.0 Hypertensive heart disease with heart failure; E66.9 Obesity, unspecified; K70.9 Alcoholic liver disease, unspecified; I50.42 Chronic combined systolic (congestive) and diastolic (congestive) heart failure; F17.210 Nicotine dependence, cigarettes, uncomplicated; Z90.49 Acquired absence of other specified parts of digestive tract; Z99.81 Dependence on supplemental oxygen; E78.5 Hyperlipidemia, unspecified; Z87.19 Personal history of other diseases of the digestive system; Z79.51 Long term (current) use of inhaled steroids; Z79.899 Other long term (current) drug therapy; Z82.49 Family history of ischemic heart disease and other diseases of the circulatory system; Z83.3 Family history of diabetes mellitus; Z82.3 Family history of stroke; F10.90 Alcohol use, unspecified, uncomplicated; Y90.0 Blood alcohol level of less than 20 mg/100 ml; Z72.3 Lack of physical exercise; Z68.29 Body mass index [BMI] 29.0-29.9, adult; L85.3 Xerosis cutis; K59.00 Constipation, unspecified
CPT/HCPCS: 36415; 36600; 71045-TC; 80048-TC; 80061-TC; 82247-TC; 82248-TC; 82803-TC; 82962-TC; 83605-TC; 83735-TC; 83880; 84100-TC; 84439-TC; 84443-TC; 84484-TC; 85025-TC; 87040-TC; 94760-TC; 94761-TC; 94799-TC; 97112-TC; 97116-TC; 97530-TC; A4223; G0378; G0480; J0456; J0696; J1650; J2919; J3475; J7030; J7040; J7050; J7060; J7120

== ENCOUNTER 2025-02-20 20:21 | Emergency (ER) | payer MEDICARE, BC ==
[~2025-02-20] VITALS: Ht 175.3 cm; Wt 113.4 kg
[~2025-02-20 20:21] MED LIST changes: +AZIT250T PO; +FLUT1BLS INH; -HYDR-4303 PO; -IPRA3AMP23 IH; +OMEP20CA15 PO; -PANT40TA49 PO; +PRED50TA PO
[2025-02-20] MEDS: IPRATROPIUM NEB FS 0.5 MG/2.5 ML AMPUL.NEB NEB ONE (20:43)
[2025-02-20] MEDS: ALBUTEROL FS 2.5 MG/3 ML VIAL.NEB NEB ONE (20:43)
[2025-02-20 20:45] VITALS: O2SAT 95
[2025-02-20] MEDS ORDERED: ALBUTEROL FS 2.5 MG/3 ML VIAL.NEB ONE (20:48)
[2025-02-20] MEDS ORDERED: IPRATROPIUM NEB FS 0.5 MG/2.5 ML AMPUL.NEB ONE (20:48)
[2025-02-20 21:03] LABS: PLATELET COUNT (AUTO) 182 K/uL (150-450); RED BLOOD CELL COUNT(AUTO) 4.79 MIL/uL (4.5-6.0); RED CELL DISTRIBUTION WIDTH 14.9 % (11.5-15.0); WHITE BLOOD COUNT (AUTO) 5.7 K/uL (4.3-11.0)
[2025-02-20 21:09] LABS: CALCIUM, SERUM 8.4 mg/dL (8.5-10.1); CREATININE 0.8 mg/dL (0.6-1.3); SODIUM SERUM 140.0 mmol/L (136-145); UREA NITROGEN, BLOOD 14.0 mg/dL (7-18)
[2025-02-20 21:45] VITALS: O2SAT 96
[2025-02-20] MEDS ORDERED: AZIT250T13 PO (22:10)
[2025-02-20] MEDS ORDERED: PRED20TA PO (22:10)
[2025-02-20 23:41] VITALS: BP 123/73; TEMP 98; O2SAT 92
== END 2025-02-20 23:42 | disposition home or self-care (01) ==
LOC: ER 20:23
DX: J44.1 Chronic obstructive pulmonary disease with (acute) exacerbation (principal); F17.200 Nicotine dependence, unspecified, uncomplicated; E78.5 Hyperlipidemia, unspecified; I11.9 Hypertensive heart disease without heart failure; Z79.51 Long term (current) use of inhaled steroids; Z79.52 Long term (current) use of systemic steroids; Z79.899 Other long term (current) drug therapy; Z90.49 Acquired absence of other specified parts of digestive tract; Z60.2 Problems related to living alone
CPT/HCPCS: 36415; 71045-TC; 80048-TC; 85025-TC; 94799-TC; J2919